=== PATIENT | female | born 1960 | race Caucasian/White ===

== ENCOUNTER 2018-02-25 16:26 | Inpatient (IN) | payer MEDICARE ==
[~2018-02-25] VITALS: Ht 170.2 cm; Wt 74.5 kg
--- NOTE | ~2018-02-25 | OP ---
PATIENT NAME: GUNJAN BROWN MEDICAL RECORD: [id number] :58 LOCATION:D.[id number] ADMISSION DATE:02/25/18 SURGEON: OTILIA OSEGUERA MD DATE OF OPERATION: 02/26/2018 SURGEON: Otilia Oseguera MD ORNAMENTAL METAL WORKER: Yoly Ortiz APRN PREOPERATIVE DIAGNOSIS: Perirectal abscess. POSTOPERATIVE DIAGNOSIS: Horseshoe perirectal abscess. PROCEDURE PERFORMED: Incision and drainage of complex multiloculated perirectal abscess, 8 x 8 x 6 cm. ANESTHESIA: General. COMPLICATIONS: None. SPECIMENS: Anaerobic and aerobic wound cultures. Case was grossly contaminated. ESTIMATED BLOOD LOSS: 30 cc. OPERATIVE COURSE: After consent was obtained, the patient was taken to the operating room and placed in the supine position on the operating table. Next, general anesthesia was given via endotracheal intubation and after a timeout was performed to confirm the correct patient and procedure, the patient was then placed into the lithotomy position. The perineum was prepped and draped in typical sterile fashion. There was a significant amount of fluctuance along the left perirectal area and buttocks. There was an area of skin breakdown with spontaneous drainage. An elliptical incision was made approximately 6 cm x 1 cm. There was an immediate return of 50-60 cc of purulent fluid. Anaerobic and aerobic cultures were obtained. Blunt finger dissection was performed until all loculations were opened. The abscess cavity measured 8 x 8 x 6 cm. It extended posteriorly across the midline. The abscess cavity was then copiously irrigated with saline. It was then packed with Kerlix gauze soaked in iodine and peroxide. Sterile gauze dressings were placed. At the end of the case, all needle and instrument counts were correct. No complications occurred. The patient was extubated and transferred to the PACU in stable condition. TRANSINT:[id number] Voice Confirmation ID: [id number] DOCUMENT ID: [id number] OTILIA OSEGUERA MD at 1323 CC: [id number] DICTATION DATE: 02/26/18 1143 DELI ASSOCIATE: 02/26/18 1321 ADM IN [facility] [address] [place] [address]
[~2018-02-25 16:26] MED LIST: ATIVAN2 MG PO; DILAUDID4 MG PO; HCTZ25 MG PO; HYDROCODONE-APA1 TAB PO; METOPROLOL TART50 MG PO; OXY IR30 MG PO; POTASSIUM99 M1; REQUIP1 MG PO; SEROQUEL100 MG PO; SOMA350 MG PO; TRAZODONE HCL50 MG PO; VITAMIN B-1000 MCG/M SQ
[2018-02-25 20:00] VITALS: BP 89/47
[2018-02-25 22:01] VITALS: BP 89/47; BMI 25.7
[2018-02-26] VITALS (7 sets, daily range): BP systolic 82–113; BP diastolic 46–77; Ht 170.2 cm; Wt 74.5 kg
[2018-02-26 09:34] LABS: BASOPHILS 0.2 % (0-2); EOSINOPHILS 1.9 % (0-7); HEMATOCRIT 35.3 % (36.0-48.0); HEMOGLOBIN 11.3 g/dL (12-16); IMMATURE GRANULOCYTES 0.4 % (0-5); MCH 33.1 pg (26.0-34.0); MCV 103.5 fL (80.0-100.0); NEUTROPHILS 80.5 % (40-80); RBC 3.41 10x6/uL (4.00-5.40); WBC 16.4 10x3/uL (4.8-10.8)
[2018-02-26 09:35] LABS: PLATELET COUNT 299 10x3/uL (130-400)
[2018-02-26 09:49] LABS: ANION GAP 16.5 mmol/L (8-16); CALCIUM 9.6 mg/dL (8.5-10.1); CARBON DIOXIDE 24.8 mmol/L (21.0-32.0); POTASSIUM - SERUM 3.3 mmol/L (3.5-5.1)
[2018-02-26 14:18] LABS: % SATURATION 5 % (15-55); IRON 18 ug/dl (35-150); TOTAL IRON BIND CAPACITY 310 ug/dl (260-445); UNSAT IRON BIND CAPACITY 292 ug/dl (150-375)
[2018-02-26 14:20] LABS: FERRITIN 256 ng/mL (3-244); LDH 186 U/L (81-234)
[2018-02-27 03:58] VITALS: BP 112/69
[2018-02-27 05:43] LABS: BASOPHILS 0.2 % (0-2); EOSINOPHILS 0.4 % (0-7); HEMATOCRIT 32.3 % (36.0-48.0); HEMOGLOBIN 10.7 g/dL (12-16); IMMATURE GRANULOCYTES 0.4 % (0-5); LYMPHOCYTES 9.3 % (15-50); MCHC 33.1 g/dL (31.0-37.0); MEAN PLATELET VOLUME 9.2 fL (7.4-10.4); MONOCYTES 14.9 % (2-11); NEUTROPHILS 74.8 % (40-80); RBC 3.24 10x6/uL (4.00-5.40); RDW 14.1 % (11.5-14.5); WBC 17.1 10x3/uL (4.8-10.8)
[2018-02-27 05:44] LABS: MCV 99.7 fL (80.0-100.0); PLATELET COUNT 359 10x3/uL (130-400)
[2018-02-27 06:02] LABS: ANION GAP 12.7 mmol/L (8-16); CARBON DIOXIDE 26.7 mmol/L (21.0-32.0); CREATININE - SERUM 0.9 mg/dL (0.6-1.3); POTASSIUM - SERUM 3.4 mmol/L (3.5-5.1)
[2018-02-27 08:20] VITALS: BP 93/51
[2018-02-27 10:21] LABS: FOLATE (FOLIC ACID) - SERUM >20.0 ng/mL (>3.0)
[2018-02-27 11:40] VITALS: BP 74/46
[2018-02-27 15:52] VITALS: BP 93/57
[2018-02-27 19:58] VITALS: BP 101/65
[2018-02-28] VITALS (7 sets, daily range): BP systolic 89–131; BP diastolic 53–64
[2018-02-28 05:10] LABS: BASOPHILS 0.2 % (0-2); EOSINOPHILS 2.9 % (0-7); HEMATOCRIT 31.2 % (36.0-48.0); HEMOGLOBIN 10.2 g/dL (12-16); IMMATURE GRANULOCYTES 0.6 % (0-5); LYMPHOCYTES 13.8 % (15-50); MCH 32.7 pg (26.0-34.0); MCHC 32.7 g/dL (31.0-37.0); MEAN PLATELET VOLUME 9.3 fL (7.4-10.4); MONOCYTES 13.4 % (2-11); NEUTROPHILS 69.1 % (40-80); PLATELET COUNT 386 10x3/uL (130-400); RBC 3.12 10x6/uL (4.00-5.40); RDW 14.1 % (11.5-14.5)
[2018-02-28 05:19] LABS: WBC 11.6 10x3/uL (4.8-10.8)
[2018-02-28 05:32] LABS: ANION GAP 14.4 mmol/L (8-16); CALCIUM 9.3 mg/dL (8.5-10.1); CARBON DIOXIDE 25.8 mmol/L (21.0-32.0); POTASSIUM - SERUM 3.2 mmol/L (3.5-5.1)
[2018-02-28 05:33] LABS: CREATININE - SERUM 1.3 mg/dL (0.6-1.3)
[2018-03-01 04:20] VITALS: BP 147/72
[2018-03-01 05:13] LABS: BASOPHILS 0.3 % (0-2); EOSINOPHILS 4.5 % (0-7); HEMATOCRIT 33.6 % (36.0-48.0); IMMATURE GRANULOCYTES 0.6 % (0-5); LYMPHOCYTES 24.2 % (15-50); MCH 33.1 pg (26.0-34.0); MCHC 32.7 g/dL (31.0-37.0); MCV 101.2 fL (80.0-100.0); MEAN PLATELET VOLUME 9.5 fL (7.4-10.4); MONOCYTES 13.7 % (2-11); NEUTROPHILS 56.7 % (40-80); PLATELET COUNT 369 10x3/uL (130-400); RBC 3.32 10x6/uL (4.00-5.40); RDW 14.4 % (11.5-14.5); WBC 10.9 10x3/uL (4.8-10.8)
[2018-03-01 05:31] LABS: CALC OSMOLALITY 284 mosm/kg (275-300); CALCIUM 9.3 mg/dL (8.5-10.1); CARBON DIOXIDE 26.2 mmol/L (21.0-32.0); CHLORIDE - SERUM 105 mmol/L (98-107); CREATININE - SERUM 0.7 mg/dL (0.6-1.3); GLUCOSE 88 mg/dL (74-106); SODIUM 143 mmol/L (136-145); UREA NITROGEN 15 mg/dL (7-18); eGFR NON AFRICAN AMERICAN > 90 mL/min (90-120)
[2018-03-01 08:16] VITALS: BP 155/77
[2018-03-01 12:09] VITALS: BP 130/71
[2018-03-01 16:55] VITALS: BP 100/70
[2018-03-01 20:49] VITALS: BP 116/74
[2018-03-02 04:17] VITALS: BP 93/48
[2018-03-02 06:59] LABS: BASOPHILS 0.4 % (0-2); EOSINOPHILS 4.2 % (0-7); HEMATOCRIT 31.4 % (36.0-48.0); HEMOGLOBIN 10.2 g/dL (12-16); IMMATURE GRANULOCYTES 0.6 % (0-5); LYMPHOCYTES 20.8 % (15-50); MCH 32.4 pg (26.0-34.0); MCHC 32.5 g/dL (31.0-37.0); MCV 99.7 fL (80.0-100.0); MEAN PLATELET VOLUME 9.2 fL (7.4-10.4); MONOCYTES 13.4 % (2-11); NEUTROPHILS 60.6 % (40-80); PLATELET COUNT 391 10x3/uL (130-400); RBC 3.15 10x6/uL (4.00-5.40); RDW 14.1 % (11.5-14.5); WBC 9.6 10x3/uL (4.8-10.8)
[2018-03-02 07:26] LABS: CALC OSMOLALITY 285 mosm/kg (275-300); CALCIUM 9.5 mg/dL (8.5-10.1); CARBON DIOXIDE 27.2 mmol/L (21.0-32.0); CHLORIDE - SERUM 105 mmol/L (98-107); CREATININE - SERUM 0.7 mg/dL (0.6-1.3); GLUCOSE 93 mg/dL (74-106); POTASSIUM - SERUM 3.7 mmol/L (3.5-5.1); SODIUM 143 mmol/L (136-145); UREA NITROGEN 15 mg/dL (7-18); eGFR NON AFRICAN AMERICAN > 90 mL/min (90-120)
[2018-03-02 09:09] VITALS: BP 136/86
[2018-03-02 12:31] VITALS: BP 107/69
[2018-03-02] MEDS ORDERED: PROZAC20 MG PO (13:36)
[2018-03-02] MEDS ORDERED: VIBRAMYCIN 100100 MG PO (13:36)
[2018-03-02] MEDS ORDERED: PROTONIX40 MG PO (13:37)
[2018-03-02] MEDS ORDERED: HCTZ25 MG PO (13:37)
[2018-03-02] MEDS ORDERED: HYDROCODONE-APA1 TAB PO (16:42)
== END 2018-03-02 18:24 | disposition home health service (06) | DRG 854 ==
LOC: D.MS 16:26 → OBSVTIME 16:27 → D.MS 16:45
PROVIDERS: Anesthesiology; Internal Medicine Nephrology; Surgery
PROC: 0D9P0ZZ Drainage of Rectum, Open Approach (ICD-10-PCS; principal; 2018-02-26 11:00)
DX: A41.9 Sepsis, unspecified organism (principal); K61.1 Rectal abscess; R65.20 Severe sepsis without septic shock; D53.9 Nutritional anemia, unspecified; J43.9 Emphysema, unspecified; B96.20 Unspecified Escherichia coli [E. coli] as the cause of diseases classified elsewhere; B95.62 Methicillin resistant Staphylococcus aureus infection as the cause of diseases classified elsewhere; G25.81 Restless legs syndrome; F41.8 Other specified anxiety disorders; Z87.891 Personal history of nicotine dependence; E87.6 Hypokalemia

== ENCOUNTER 2018-08-11 21:38 | Inpatient (IN) | payer MEDICARE ==
[~2018-08-11] VITALS: Ht 170.2 cm; Wt 77.4 kg
--- NOTE | ~2018-08-11 | MORECARE ---
CASE MANAGEMENT DISCHARGE SUMMARY PATIENT: GUNJAN BROWN UNIT: [id number] ADM DATE: 08/12/18 AGE: 57 : 58 SEX: F ROOM/BED: D.2137 AUTHOR: JOAN LOCKWOOD PHYSICIAN: REFERRING PHYSICIAN: KARAN DOAN MD DATE OF SERVICE: 08/15/18 Discharge Plan Patient Name: GUNJAN BROWN [facility] : 1960 Planned Disposition: Home Anticipated Discharge Date: 08/15/18 Discharge Date: 08/15/2018 Expected LOS: 3 Initial Reviewer: [email or web address] Initial Review Date: 08/15/2018 Generated: 08/15/18 1:11 pm Patient Name: GUNJAN BROWN Page [id number] at 1211 All edits/amendments must be made on the electronic document DICTATION DATE: 08/15/18 1211 SPINNER CAP FRAME: JORDAN 08/15/18 1211 RPT#: [id number] DC DATE:08/15/18 STATUS: DIS IN [facility] [address] [place] [address] END OF REPORT
--- NOTE | ~2018-08-11 | MORECARE ---
CASE MANAGEMENT DISCHARGE SUMMARY PATIENT: GUNJAN BROWN UNIT: [id number] ADM DATE: 08/12/18 AGE: 57 : 58 SEX: F ROOM/BED: D.7215 AUTHOR: JOAN LOCKWOOD PHYSICIAN: REFERRING PHYSICIAN: KARAN DOAN MD DATE OF SERVICE: 08/15/18 Discharge Plan Patient Name: GUNJAN BROWN Facility: [facility]:[place] : 1960 Planned Disposition: Home Anticipated Discharge Date: 08/15/18 Discharge Date: 08/15/2018 Expected LOS: 3 Initial Reviewer: [email or web address] Initial Review Date: 08/15/2018 Generated: 08/15/18 1:20 pm Comments DCP- Discharge Planning Updated by [email or web address]: Arnaud Ramos on 08/15/18 11:[address] Patient Name: GUNJAN BROWN Admission Status: ER Accout number: [id number] Admission Date: 08-12-2018 : 1960 Admission Diagnosis:SHORTNESS OF BREATH Attending: KARAN DOAN Current LOS: 3 Anticipated DC Date: 08-15-2018 Planned Disposition: Home Primary Insurance: HUMANA CHOICE PPO MCR [facility] Discharge Planning Comments: CM ATTEMPTED TO MEET WITH PT FOR INITIAL ASSESSMENT OF DISCHARGE NEEDS. PT WAS NOT IN ROOM AT APPROXIMATELY 1135 HOURS AND HAD ALREADY DISCHARGED HOME. Tobacco Drummer: Arnaud Ramos Last DP export: 08/15/18 11:11 Patient Name: GUNJAN BROWN Page [phone] at 1220 All edits/amendments must be made on the electronic document DICTATION DATE: 08/15/18 1219 EVALUATOR: JORDAN 08/15/18 1219 RPT#: [id number] DC DATE:08/15/18 STATUS: DIS IN [facility] [address] [facility] [place] [address] END OF REPORT
[~2018-08-11 21:38] MED LIST changes: +PROTONIX40 MG PO; +PROZAC20 MG PO; +VIBRAMYCIN 100100 MG PO
[2018-08-11] MEDS ORDERED: AMBIEN5 MG PO (21:48)
[2018-08-11] MEDS ORDERED: PHENERGAN25 M1 PO (21:49)
[2018-08-11 22:03] LABS: BASOPHILS 0.4 % (0-2); EOSINOPHILS 2.6 % (0-7); HEMATOCRIT 39.7 % (36.0-48.0); HEMOGLOBIN 13.3 g/dL (12-16); IMMATURE GRANULOCYTES 0.2 % (0-5); LYMPHOCYTES 40.6 % (15-50); MCH 34.3 pg (26.0-34.0); MCHC 33.5 g/dL (31.0-37.0); MCV 102.3 fL (80.0-100.0); MEAN PLATELET VOLUME 10.1 fL (7.4-10.4); MONOCYTES 5.9 % (2-11); NEUTROPHILS 50.3 % (40-80); RBC 3.88 10x6/uL (4.00-5.40); RDW 13.3 % (11.5-14.5)
[2018-08-11 22:09] LABS: PLATELET COUNT 236 10x3/uL (130-400)
[2018-08-11 22:26] LABS: ALBUMIN 3.6 g/dL (3.4-5.0); ALKALINE PHOSPHATASE 109 U/L (46-116); ALT (SGPT) 21 U/L (10-68); CALC OSMOLALITY 279 mosm/kg (275-300); CARBON DIOXIDE 22.8 mmol/L (21.0-32.0); CHLORIDE - SERUM 101 mmol/L (98-107); CREATININE - SERUM 1.1 mg/dL (0.6-1.3); GLUCOSE 90 mg/dL (74-106); PROTEIN - SERUM 7.6 g/dL (6.4-8.2); SODIUM 140 mmol/L (136-145); UREA NITROGEN 16 mg/dL (7-18); eGFR NON AFRICAN AMERICAN 54 mL/min (90-120)
[2018-08-11 22:36] LABS: CKMB 1.5 U/L (0.0-3.6); CREATINE KINASE 57 UL (21-215); MAGNESIUM - SERUM 1.7 mg/dL (1.8-2.4); TROPONIN-I < 0.017 ng/mL (0.000-0.060)
[2018-08-11 23:22] VITALS: BP 159/75
[2018-08-12] VITALS (10 sets, daily range): BP systolic 112–158; BP diastolic 62–92; Ht 170.2 cm; Wt 77.4 kg
[2018-08-12 00:14] LABS: APPEARANCE CLEAR (CLEAR); BILIRUBIN NEGATIVE (NEGATIVE); COLOR YELLOW (YELLOW); GLUCOSE NEGATIVE (NEGATIVE); KETONE NEGATIVE (NEGATIVE); NITRITE NEGATIVE (NEGATIVE); PROTEIN NEGATIVE (NEGATIVE); UROBILINOGEN NORMAL (NORMAL)
[2018-08-12 00:16] LABS: BACTERIA FEW /hpf (NONE SEEN); EPITHELIAL CELLS 0-5 /hpf (0-5); RED CELLS - URINE 0-5 /hpf (0-5); WHITE CELLS - URINE 0-5 /hpf (0-5)
[2018-08-12] MEDS ORDERED: ALBUTEROL SULF8.5 GM IH (01:28)
[2018-08-12 06:03] LABS: BASOPHILS 0.3 % (0-2); EOSINOPHILS 0 % (0-7); HEMOGLOBIN 13.5 g/dL (12-16); IMMATURE GRANULOCYTES 0.3 % (0-5); LYMPHOCYTES 9.8 % (15-50); MCH 34.2 pg (26.0-34.0); MCHC 32.9 g/dL (31.0-37.0); MCV 103.8 fL (80.0-100.0); MEAN PLATELET VOLUME 10.9 fL (7.4-10.4); MONOCYTES 0 % (2-11); NEUTROPHILS 89.6 % (40-80); PLATELET COUNT 242 10x3/uL (130-400); RBC 3.95 10x6/uL (4.00-5.40); RDW 13.7 % (11.5-14.5); WBC 6.9 10x3/uL (4.8-10.8)
[2018-08-12 06:31] LABS: ALBUMIN 3.6 g/dL (3.4-5.0); ANION GAP 23.1 mmol/L (8-16); BILIRUBIN - TOTAL 0.21 mg/dL (0.2-1.3); CALCIUM 8.9 mg/dL (8.5-10.1); CARBON DIOXIDE 17.6 mmol/L (21.0-32.0); CREATININE - SERUM 1.2 mg/dL (0.6-1.3); PROTEIN - SERUM 7.5 g/dL (6.4-8.2)
[2018-08-12 06:32] LABS: POTASSIUM - SERUM 4.7 mmol/L (3.5-5.1)
[2018-08-13 01:16] VITALS: BP 138/86
[2018-08-13 05:50] VITALS: BP 92/50
[2018-08-13 06:20] LABS: ANION GAP 18.5 mmol/L (8-16); CALCIUM 9.7 mg/dL (8.5-10.1); CREATININE - SERUM 1.2 mg/dL (0.6-1.3); PHOSPHOROUS 2.5 mg/dL (2.5-4.9)
[2018-08-13 06:24] LABS: POTASSIUM - SERUM 3.5 mmol/L (3.5-5.1)
[2018-08-13 06:51] LABS: BASOPHILS 0 % (0-2); EOSINOPHILS 0 % (0-7); HEMATOCRIT 37.3 % (36.0-48.0); HEMOGLOBIN 12.3 g/dL (12-16); IMMATURE GRANULOCYTES 0.3 % (0-5); LYMPHOCYTES 3.8 % (15-50); MCH 34.3 pg (26.0-34.0); MCV 103.9 fL (80.0-100.0); MEAN PLATELET VOLUME 10.6 fL (7.4-10.4); MONOCYTES 1.7 % (2-11); NEUTROPHILS 94.2 % (40-80); PLATELET COUNT 228 10x3/uL (130-400); RBC 3.59 10x6/uL (4.00-5.40); RDW 13.9 % (11.5-14.5)
[2018-08-13 06:57] LABS: WBC 11.6 10x3/uL (4.8-10.8)
[2018-08-13 09:17] VITALS: BP 118/76
[2018-08-13 11:12] VITALS: BP 123/82
[2018-08-13 15:13] VITALS: BP 129/73
[2018-08-13 21:07] VITALS: BP 128/60
[2018-08-14] VITALS (7 sets, daily range): BP systolic 90–128; BP diastolic 47–79
[2018-08-14 06:09] LABS: BASOPHILS 0 % (0-2); EOSINOPHILS 0 % (0-7); HEMATOCRIT 40.2 % (36.0-48.0); HEMOGLOBIN 13.4 g/dL (12-16); IMMATURE GRANULOCYTES 0.3 % (0-5); LYMPHOCYTES 8.2 % (15-50); MCH 34.4 pg (26.0-34.0); MCHC 33.3 g/dL (31.0-37.0); MCV 103.1 fL (80.0-100.0); MEAN PLATELET VOLUME 10.4 fL (7.4-10.4); MONOCYTES 6.1 % (2-11); NEUTROPHILS 85.4 % (40-80); PLATELET COUNT 250 10x3/uL (130-400); RDW 13.7 % (11.5-14.5)
[2018-08-14 06:18] LABS: ANION GAP 12.9 mmol/L (8-16); CALCIUM 9.5 mg/dL (8.5-10.1); CREATININE - SERUM 1.1 mg/dL (0.6-1.3); POTASSIUM - SERUM 3.2 mmol/L (3.5-5.1)
[2018-08-14 06:20] LABS: CARBON DIOXIDE 29.3 mmol/L (21.0-32.0)
[2018-08-14 06:22] LABS: WBC 15.3 10x3/uL (4.8-10.8)
[2018-08-15 01:12] VITALS: BP 91/52
[2018-08-15 04:38] VITALS: BP 91/59
[2018-08-15 06:41] LABS: BASOPHILS 0 % (0-2); EOSINOPHILS 0.3 % (0-7); HEMATOCRIT 38.9 % (36.0-48.0); HEMOGLOBIN 13.1 g/dL (12-16); IMMATURE GRANULOCYTES 0.2 % (0-5); LYMPHOCYTES 33.9 % (15-50); MCH 34.5 pg (26.0-34.0); MCHC 33.7 g/dL (31.0-37.0); MCV 102.4 fL (80.0-100.0); MEAN PLATELET VOLUME 10.3 fL (7.4-10.4); MONOCYTES 8.5 % (2-11); NEUTROPHILS 57.1 % (40-80); PLATELET COUNT 222 10x3/uL (130-400)
[2018-08-15 07:05] LABS: ANION GAP 14.4 mmol/L (8-16); CALCIUM 9.3 mg/dL (8.5-10.1); CARBON DIOXIDE 26.5 mmol/L (21.0-32.0); CREATININE - SERUM 1.4 mg/dL (0.6-1.3)
[2018-08-15 07:07] LABS: POTASSIUM - SERUM 2.9 mmol/L (3.5-5.1)
[2018-08-15 08:21] VITALS: BP 94/57
[2018-08-15] MEDS ORDERED: LEVAQUIN750 MG PO (09:15)
[2018-08-15] MEDS ORDERED: MUCINEX DM ER1 EAC1 PO (09:16)
[2018-08-15] MEDS ORDERED: SINGULAIR10 MG PO (09:16)
[2018-08-15] MEDS ORDERED: FLUTICASONE PRO16 GM NASAL (09:17)
[2018-08-15] MEDS ORDERED: PROTONIX40 MG PO (09:17)
[2018-08-15] MEDS ORDERED: SYMBICORT 16010.2 GM INH (09:18)
[2018-08-15] MEDS ORDERED: PREDNISONE20 MG PO (09:18)
[2018-08-15] MEDS ORDERED: IPRAT-ALBUT 0.5-3 ML UPD (09:19)
[2018-08-15 14:13] LABS: ANA REFLEX - DIRECT Negative (Negative)
[2018-08-16 03:08] LABS: MYCOPLASMA PNEUMO IGG 177 U/mL (0-99)
[2018-08-16 05:09] LABS: IMMUNOGLOBULIN A 216 mg/dL (87-352)
[2018-08-18 10:09] LABS: IMMUNOGLOBULIN E 333 IU/mL (0-100)
[2018-08-18 13:11] LABS: IGG SUBCLASS 1 430 mg/dL (248-810); IGG SUBCLASS 2 262 mg/dL (130-555); IGG SUBCLASS 3 37 mg/dL (15-102); IGG SUBCLASS 4 24 mg/dL (2-96)
[2018-08-19 13:14] LABS: ANCA - ANTIMYELOPEROXIDASE <9.0 U/mL (0.0-9.0); ANCA - ANTIPROTEINASE 3 <3.5 U/mL (0.0-3.5); ANCA - ATYPICAL <1:20 titer (Neg:<1:20); ANCA - CYTOPLASMIC <1:20 titer (Neg:<1:20); ANCA - PERINUCLEAR <1:20 titer (Neg:<1:20)
== END 2018-08-15 11:15 | disposition home or self-care (01) | DRG 193 ==
LOC: D.ER 21:38 → D.M2 08-12 00:08
PROVIDERS: Family Medicine; Internal Medicine Nephrology; Internal Medicine Pulmonary Disease
DX: J18.9 Pneumonia, unspecified organism (principal); J96.01 Acute respiratory failure with hypoxia; J44.0 Chronic obstructive pulmonary disease with (acute) lower respiratory infection; J44.1 Chronic obstructive pulmonary disease with (acute) exacerbation; J20.9 Acute bronchitis, unspecified; F41.8 Other specified anxiety disorders; D75.89 Other specified diseases of blood and blood-forming organs; L40.9 Psoriasis, unspecified; R19.7 Diarrhea, unspecified; J30.9 Allergic rhinitis, unspecified; G89.29 Other chronic pain; M54.9 Dorsalgia, unspecified; I10 Essential (primary) hypertension; E87.6 Hypokalemia

== ENCOUNTER → 2018-11-07 | Emergency (ER) | payer MEDICARE ==
[~2018-11-07] VITALS: Ht 170.2 cm; Wt 85.0 kg
[~2018-11-07] MED LIST changes: +ALBUTEROL SULF8.5 GM IH; +AMBIEN5 MG PO; +FLUTICASONE PRO16 GM NASAL; +IPRAT-ALBUT 0.5-3 ML UPD; +LEVAQUIN750 MG PO; +MUCINEX DM ER1 EAC1 PO; +PHENERGAN25 M1 PO; +PREDNISONE20 MG PO; +SINGULAIR10 MG PO; +SYMBICORT 16010.2 GM INH
[2018-11-07 19:33] VITALS: Ht 170.2 cm; Wt 85.0 kg
[2018-11-07 20:12] LABS: BASOPHILS 0.2 % (0-2); EOSINOPHILS 1.7 % (0-7); HEMATOCRIT 35.3 % (36.0-48.0); HEMOGLOBIN 11.4 g/dL (12-16); IMMATURE GRANULOCYTES 0.2 % (0-5); MCH 32.2 pg (26.0-34.0); MCHC 32.3 g/dL (31.0-37.0); MCV 99.7 fL (80.0-100.0); MEAN PLATELET VOLUME 9.8 fL (7.4-10.4); MONOCYTES 12.2 % (2-11); NEUTROPHILS 58.7 % (40-80); PLATELET COUNT 295 10x3/uL (130-400); RBC 3.54 10x6/uL (4.00-5.40); RDW 14.5 % (11.5-14.5); WBC 10.6 10x3/uL (4.8-10.8)
[2018-11-07 20:21] LABS: INR 0.95 (0.85-1.17); PROTIME 12.2 SECONDS (11.6-15.0)
[2018-11-07 20:31] LABS: ALKALINE PHOSPHATASE 139 U/L (46-116); ALT (SGPT) 29 U/L (10-68); BILIRUBIN - TOTAL 0.45 mg/dL (0.2-1.3); CALC OSMOLALITY 292 mosm/kg (275-300); CALCIUM 9.3 mg/dL (8.5-10.1); CARBON DIOXIDE 24.7 mmol/L (21.0-32.0); CHLORIDE - SERUM 102 mmol/L (98-107); CREATININE - SERUM 1.5 mg/dL (0.6-1.3); GLUCOSE 73 mg/dL (74-106); POTASSIUM - SERUM 3.6 mmol/L (3.5-5.1); PROTEIN - SERUM 7.5 g/dL (6.4-8.2); SODIUM 143 mmol/L (136-145); UREA NITROGEN 38 mg/dL (7-18); eGFR NON AFRICAN AMERICAN 38 mL/min (90-120)
[2018-11-07 20:43] VITALS: BP 137/85
[2018-11-07 20:45] LABS: CREATINE KINASE 371 UL (21-215); PRO BNP 280 pg/mL (0-125); TROPONIN-I < 0.017 ng/mL (0.000-0.060)
== END | disposition home or self-care (01) ==
LOC: D.ER 19:30
PROVIDERS: Emergency Medicine
DX: R06.02 Shortness of breath (principal); I10 Essential (primary) hypertension

== ENCOUNTER → 2019-01-13 14:16 | Outpatient (CLI) | payer MEDICARE ==
[2018-11-07 19:33] VITALS: BMI 29.3
== END | disposition home or self-care (01) ==
LOC: D.RT 14:16
PROVIDERS: ATTEND Internal Medicine Pulmonary Disease
DX: J44.1 Chronic obstructive pulmonary disease with (acute) exacerbation (principal)

== ENCOUNTER 2019-04-13 22:11 | Inpatient (IN) | payer MEDICARE ==
[~2019-04-13] VITALS: Ht 170.2 cm; Wt 88.5 kg
[2019-04-13 23:25] LABS: BASOPHILS 0.3 % (0-2); EOSINOPHILS 14.2 % (0-7); HEMATOCRIT 23.9 % (36.0-48.0); IMMATURE GRANULOCYTES 0.1 % (0-5); LYMPHOCYTES 23.6 % (15-50); MCH 23.8 pg (26.0-34.0); MCHC 29.7 g/dL (31.0-37.0); MCV 80.2 fL (80.0-100.0); MEAN PLATELET VOLUME 9.6 fL (7.4-10.4); MONOCYTES 9.5 % (2-11); NEUTROPHILS 52.3 % (40-80); PLATELET COUNT 304 10x3/uL (130-400); RBC 2.98 10x6/uL (4.00-5.40); RDW 17.6 % (11.5-14.5); WBC 7.2 10x3/uL (4.8-10.8)
[2019-04-13 23:33] LABS: HEMOGLOBIN 7.1 g/dL (12-16)
--- NOTE | 2019-04-13 23:35 | NUR ---
PT CLOSING EYES WHILE THIS NURSE EXPLAINED PROCEDURE OF IN AND OUT CATHETERIZATION, NOTED TO BE LETHARGIC AT THIS TIME. PT REPEATED PROCEDURE AND CONSENTED AT THIS TIME. STATED "I'M SORRY I COULDN'T GO ON THE TOILET."
[2019-04-13 23:37] LABS: APTT 29.3 SECONDS (22.8-39.4); PROTIME 12.7 SECONDS (11.6-15.0)
--- NOTE | 2019-04-13 23:45 | NUR ---
STOOL GUIAC NEGATIVE. EDP NOTIFIED.
[2019-04-13 23:47] VITALS: BP 110/56
[2019-04-13 23:50] LABS: ALBUMIN 3.3 g/dL (3.4-5.0); ALKALINE PHOSPHATASE 147 U/L (46-116); ALT (SGPT) 15 U/L (10-68); BILIRUBIN - TOTAL 0.31 mg/dL (0.2-1.3); CALC OSMOLALITY 291 mosm/kg (275-300); CALCIUM 8.5 mg/dL (8.5-10.1); CARBON DIOXIDE 25.7 mmol/L (21.0-32.0); CHLORIDE - SERUM 105 mmol/L (98-107); CREATININE - SERUM 1.8 mg/dL (0.6-1.3); GLUCOSE 101 mg/dL (74-106); POTASSIUM - SERUM 3.5 mmol/L (3.5-5.1); PROTEIN - SERUM 6.9 g/dL (6.4-8.2); SODIUM 143 mmol/L (136-145); UREA NITROGEN 32 mg/dL (7-18); eGFR NON AFRICAN AMERICAN 30 mL/min (90-120)
[2019-04-13 23:51] LABS: CKMB 0.8 U/L (0.0-3.6); CREATINE KINASE 67 UL (21-215); MAGNESIUM - SERUM 1.7 mg/dL (1.8-2.4); THYROID STIMULATING HORMONE 1.07 uIU/mL (0.36-3.74); TROPONIN-I < 0.017 ng/mL (0.000-0.060)
[2019-04-14] VITALS (8 sets, daily range): BP systolic 97–130; BP diastolic 56–70; Ht 170.2 cm; Wt 88.5 kg
[2019-04-14] LABS: APPEARANCE HAZY (CLEAR); BILIRUBIN NEGATIVE (NEGATIVE); COLOR YELLOW (YELLOW); GLUCOSE NEGATIVE (NEGATIVE); KETONE NEGATIVE (NEGATIVE); NITRITE NEGATIVE (NEGATIVE); PROTEIN 1+ mg/dL (NEGATIVE); UROBILINOGEN NORMAL (NORMAL)
[2019-04-14 00:01] LABS: UDS - AMPHET NEGATIVE QUAL (NEGATIVE); UDS - BARB NEGATIVE QUAL (NEGATIVE); UDS - BENZO NEGATIVE QUAL (NEGATIVE); UDS - COCAINE NEGATIVE QUAL (NEGATIVE); UDS - OPIATE POSITIVE QUAL (NEGATIVE); UDS - PCP NEGATIVE QUAL (NEGATIVE); UDS - THC NEGATIVE QUAL (NEGATIVE)
[2019-04-14 00:03] LABS: BACTERIA FEW /hpf (NONE SEEN); CALCIUM OXALATE CRYSTALS 0-5 /hpf (NONE SEEN); EPITHELIAL CELLS 0-5 /hpf (0-5); HYALINE CAST 0-5 /lpf (NONE SEEN); RED CELLS - URINE 0-5 /hpf (0-5); WHITE CELLS - URINE 0-5 /hpf (0-5)
[2019-04-14 00:22] LABS: % SATURATION 2 % (15-55); IRON 13 ug/dl (35-150); TOTAL IRON BIND CAPACITY 524 ug/dl (260-445)
[2019-04-14 00:26] LABS: UNSAT IRON BIND CAPACITY 511 ug/dl (150-375)
--- NOTE | 2019-04-14 00:40 | NUR ---
ENTERED PATIENTS ROOM TO GET BLOOD CONSENT SIGNED. PT WAS NOTED TO BE RESPONSIVE SLIGHTLY TO PAINFUL STIMULATION. PT, WAS HAVING SNORING RESPIRATIONS AROUND 11 BREATHS PER MINUTE.
--- NOTE | 2019-04-14 00:43 | NUR ---
DR. STONE WAS NOTIFIED ON THE CHANGE IN PATIENTS COND. ORDERED NARCAN 1 MG IVP
--- NOTE | 2019-04-14 00:47 | NUR ---
PT MORE AWAKE AND YELLING OUT. PT UNABLE TO STAY STILL ON THE BED. PT BEGAN YELLING AND CUSSING OUT AT STAFF. PT WAS INFORMED THAT SHE WAS GIVEN NARCAN DUE TO HER DECREASED NEURO AND RESP STATUS. PT YELLING OUT AGAIN.
--- NOTE | 2019-04-14 01:33 | NUR ---
PT MOVING CONSTANTLY, THIS NURSE HAVING DIFFICULTY OBTAINING BP MEASUREMENT AT THIS TIME. PT ALSO SPEAKING NEGATIVELY TO HYDRO STATION OPERATOR AT BEDSIDE SAYING "I WISH YOU COULD FEEL THIS PAIN JUST ONE TIME" AND "SHUT UP." PT ALSO ASSISTED TO BEDSIDE COMMODE AT THIS TIME WITHOUT COMPLAINT OR S/S DISTRESS.
[2019-04-14] MEDS ORDERED: SEROQUEL200 MG PO (02:20)
[2019-04-14] MEDS ORDERED: GABAPENTIN100 MG PO (02:23)
--- NOTE | 2019-04-14 04:03 | NUR ---
RECIEVED REPORT FROM ROBY RAM IN ER. ARRIVED TO FLOOR ON A STRETCHER. TRANSFERED SELF TO BED. ALERT AND ORIENTED X4. UP AD JAYSON. STATES SHE HAS BROKEN LEFT ANKLE. LAVELLE WRAP TO ANKLE. ANKLE IS SWOLLEN. PSORISIS TO BOTH LEGS AND GROIN AREA. BECAME VERY IRRITATED WHEN ASKING ASSESSMENT QUESTIONS. EXPLAINED IT IS ALL PART OF THE ASSESSMENT AND EVERYONE IS ASKED THESE QUESTIONS. ANSWERS VERY SHORT AND ROLLING HER EYES. UPSET BECAUSE SHE HAS'NT HAD HER NIGHT TIME MEDICATIONS. ORDER FOR REQUIP AT 0151. CALLED ER AND THEY DID'NT GIVE IT. CALLED HOUSE SUPERVISER AND WAILTING FOR HER TOO GET MEDICATION. PT AWARE. PT ALSO HAD SANDWICH BOX 2 BAGS OF CHIPS AND COOKIES WITH CUP OF COFFEE. PRBC STARTED WHEN RECIEVED ON THE FLOOR. STILL INFUSING. NO ADVERSE SIDE EFFECTS OBSERVED. IV TO LEFT FA WITH DSG INTACT. NO REDNESS OR SWELLING OBSERVED.
--- NOTE | 2019-04-14 07:44 | NUR ---
ASSESSMENT DONE. PERNELL NEEDS
--- NOTE | 2019-04-14 10:50 | NUR ---
I have reviewed this patient and I concur with the Shift Assessment completed by the Licensed Practical Nurse today this shift.
[2019-04-14 13:01] LABS: HEMATOCRIT 31.7 % (36.0-48.0); HEMOGLOBIN 9.8 g/dL (12-16)
--- NOTE | 2019-04-14 14:18 | NUR ---
REFUSED SCD'S PER ROSALINDA/TAMIR
--- NOTE | 2019-04-14 17:10 | NUR ---
WITHOUT CHANGES OR DISTRESS NOTED AT THIS TIME. DENIES NEEDS.
--- NOTE | 2019-04-14 19:15 | NUR ---
EVENIND ROUNDS MADE. PATIENT A&OX4. PATIENT HAS BOOT TO LEFT LEG. IV TO RT FA SALINE LOCKED, DRSG C/D/I. WILL CPOC. FAMILY AT BEDSIDE. PATIENT DENIES NEEDS AT THIS TIME. CL IN REACH, BED LOCKED AND LOWERED. WILL CTM.
--- NOTE | 2019-04-14 20:20 | NUR ---
PATIENT IV INFILTRATED. IV RESITED TO LT HAND WITH 22G, X3 ATTEMPTS. PATIENT TOLERATED WELL. PATIENT REQUESTED PAIN MED, MED ADMINISTERED PER ORDER. PATIENT DENIES FURTHER NEEDS AT THIS TIME. CL IN REACH, BED LOCKED AND LOWERED. FALL PRECAUTIONS IN PLACE. WILL CTM.
[2019-04-15] VITALS: BP 127/76
[2019-04-15 04:00] VITALS: BP 109/60
[2019-04-15 06:38] LABS: BASOPHILS 0.5 % (0-2); EOSINOPHILS 6.6 % (0-7); HEMATOCRIT 28.5 % (36.0-48.0); HEMOGLOBIN 8.9 g/dL (12-16); IMMATURE GRANULOCYTES 0.2 % (0-5); LYMPHOCYTES 40.7 % (15-50); MCH 24.5 pg (26.0-34.0); MCHC 31.2 g/dL (31.0-37.0); MCV 78.5 fL (80.0-100.0); MEAN PLATELET VOLUME 9.4 fL (7.4-10.4); PLATELET COUNT 254 10x3/uL (130-400); RDW 17.2 % (11.5-14.5); WBC 6.1 10x3/uL (4.8-10.8)
[2019-04-15 07:27] LABS: CALC OSMOLALITY 286 mosm/kg (275-300); CALCIUM 8.6 mg/dL (8.5-10.1); CARBON DIOXIDE 28.1 mmol/L (21.0-32.0); CHLORIDE - SERUM 109 mmol/L (98-107); CREATININE - SERUM 0.7 mg/dL (0.6-1.3); FERRITIN 38 ng/mL (3-244); GLUCOSE 86 mg/dL (74-106); MAGNESIUM - SERUM 1.7 mg/dL (1.8-2.4); PHOSPHOROUS 3.2 mg/dL (2.5-4.9); POTASSIUM - SERUM 3.3 mmol/L (3.5-5.1); SODIUM 144 mmol/L (136-145); UREA NITROGEN 14 mg/dL (7-18); eGFR NON AFRICAN AMERICAN > 90 mL/min (90-120)
[2019-04-15 07:29] LABS: RBC 3.63 10x6/uL (4.00-5.40)
[2019-04-15 08:44] VITALS: BP 121/67
--- NOTE | 2019-04-15 09:35 | NUR ---
ASSESSMENT DONE. DENIES NEEDS
--- NOTE | 2019-04-15 10:29 | NUR ---
I have reviewed this patient and I concur with the Shift Assessment completed by the Licensed Practical Nurse today this shift.
[2019-04-15 12:27] VITALS: BP 110/60
[2019-04-15 17:09] LABS: HEMATOCRIT 30.6 % (36.0-48.0); HEMOGLOBIN 9.5 g/dL (12-16)
--- NOTE | 2019-04-15 18:26 | NUR ---
WITHOUT CHANGES OR DISTRESS NOTED AT THIS TIME.
--- NOTE | 2019-04-15 19:52 | NUR ---
EVENING ROUNDS COMPLETE. PT SITTING UP IN BED, ASSESSMENT COMPLETE, VSS, AAOX4. TEACHING ON I/S USE, PT DEMONSTRATED CORRECTLY. NO FURTHER NEEDS NOTED AT THIS TIME.
[2019-04-15 20:00] VITALS: BP 144/72
[2019-04-16] VITALS: BP 90/53
[2019-04-16 04:00] VITALS: BP 105/73
[2019-04-16 05:39] LABS: CALC OSMOLALITY 282 mosm/kg (275-300); CALCIUM 8.8 mg/dL (8.5-10.1); CHLORIDE - SERUM 108 mmol/L (98-107); CREATININE - SERUM 0.7 mg/dL (0.6-1.3); GLUCOSE 95 mg/dL (74-106); MAGNESIUM - SERUM 2.1 mg/dL (1.8-2.4); PHOSPHOROUS 3.5 mg/dL (2.5-4.9); SODIUM 142 mmol/L (136-145); UREA NITROGEN 12 mg/dL (7-18); eGFR NON AFRICAN AMERICAN > 90 mL/min (90-120)
[2019-04-16 05:44] LABS: BASOPHILS 0.3 % (0-2); EOSINOPHILS 5.8 % (0-7); HEMATOCRIT 32.5 % (36.0-48.0); HEMOGLOBIN 9.9 g/dL (12-16); IMMATURE GRANULOCYTES 0.6 % (0-5); LYMPHOCYTES 35.2 % (15-50); MCH 24.6 pg (26.0-34.0); MCHC 30.5 g/dL (31.0-37.0); MEAN PLATELET VOLUME 10.6 fL (7.4-10.4); MONOCYTES 10.7 % (2-11); NEUTROPHILS 47.4 % (40-80); PLATELET COUNT 249 10x3/uL (130-400); RBC 4.02 10x6/uL (4.00-5.40); RDW 17.7 % (11.5-14.5); WBC 6.8 10x3/uL (4.8-10.8)
[2019-04-16 05:46] LABS: MCV 80.8 fL (80.0-100.0)
[2019-04-16 05:52] LABS: CARBON DIOXIDE 19.1 mmol/L (21.0-32.0); POTASSIUM - SERUM 3.8 mmol/L (3.5-5.1)
--- NOTE | 2019-04-16 06:25 | NUR ---
PT SITTING ON SIDE OF BED. NO NEEDS VOICED AT THIS TIME.
--- NOTE | 2019-04-16 07:26 | NUR ---
ROUNDING DONE WITH PATIENT IN THE RESTROOM AT THIS TIME. DENIES NEEDS AT THIS TIME. WALKING BOOT SEEN TO LEFT LEG. ON ROOM AIR. RIGHT FA PIV SEEN WITH NS INFUSING AT 25 CC/HR. ON EP, K+ IS 3.8. WILL MONITOR AND ASSIST FOR NEEDS.
[2019-04-16 09:30] VITALS: BP 115/73
[2019-04-16 11:40] VITALS: BP 119/65
--- NOTE | 2019-04-16 12:15 | NUR ---
IV FLUIDS CONVERTED TO SALINE LOCK PATIENT IS BEING DISCHARGED HOME. PATIENT STATES THAT SHE HAS TO WAIT ON A RIDE AND THEY ARE AT WORK AT THIS TIME.
--- NOTE | 2019-04-16 15:19 | MORECARE ---
CASE MANAGEMENT DISCHARGE SUMMARY PATIENT: GUNJAN BROWN UNIT: [id number] ADM DATE: 04/14/19 AGE: 58 : 58 SEX: F ROOM/BED: D.7786 AUTHOR: FABIÁN,DOC PHYSICIAN: REFERRING PHYSICIAN: ROBY HAN MD DATE OF SERVICE: 04/16/19 Discharge Plan Patient Name: GUNJAN BROWN Facility: [facility]:[place] : 1960 Planned Disposition: Home Anticipated Discharge Date: 04/16/19 Discharge Date: Expected LOS: 2 Initial Reviewer: [email or web address] Initial Review Date: 04/16/2019 Generated: 04/16/19 4:19 pm Comments DCP- Discharge Planning Updated by [email or web address]: Arnaud Ramos on 04/16/19 2:[address] Patient Name: GUNJAN BROWN Admission Status: ER Accout number: [id number] Admission Date: 04-14-2019 : 1960 Admission Diagnosis:OTHER SPECIFIED SOFT TISSUE DISORDERS Attending: ALAINA HAN Current LOS: 2 Anticipated DC Date: 04-16-2019 Planned Disposition: Home Primary Insurance: HUMANA CHOICE PPO MCR [employer] Discharge Planning Comments: CM MET WITH PT IN ROOM TO DISCUSS DISCHARGE PLANNING AND NEEDS. PT REPORTS LIVING AT HOME INDEPENDENTLY WITH HER EX SPOUSE. PT HAS BEDSIDE COMMODE, NEBULIZER, TOP DYEING MACHINE LOADER CHAIR, WALKER, ROLLING WALKER AND WHEELCHAIR WITH NO MEDICAL EQUIPMENT PROVIDER PREFERENCE. PT HAS NO OUTSIDE SERVICES ASSISTING IN THE HOME. CM DISCUSSED AVAILABILITY OF HOME HEALTH, REHAB SERVICES AND MEDICAL EQUIPMENT. PT DENIES DISCHARGE NEEDS, REPORTS HER EX SPOUSE WILL PICK HER UP FOR DISCHARGE HOME. Maintenance Of Way Foreman: Arnaud Ramos DCPIA - Discharge Planning Initial Assessment Updated by [email or web address]: Arnaud Ramos on 04/16/19 3:15 pm * Is the patient Alert and Oriented? Yes * How many steps to enter\exit or inside your home? NONE * PCP DR. [facility] * Pharm[facility] * Preadmission Environment Home with Family * ADLs Independent * Equipment Bedside Commode Nebulizer Rolling Walker Shower Chair Walker Wheelchair * Other Equipment NO MEDICAL EQUIPMENT PROVIDER PREFERENCE * List name and contact numbers for known caregivers / representatives who currently or will assist patient after discharge: FERNANDO ALANIS, EX SPOUSE, * Verbal permission to speak to the caregivers and representatives has been obtained from the patient. N/A * Community resources currently utilized None * Please name any agencies selected above. NONE * Additional services required to return to the preadmission environment? No * Can the patient safely return to the preadmission environment? Yes * Has this patient been hospitalized within the prior 30 days at any hospital? Yes Patient Name: GUNJAN BROWN Page [id number] at 1519 All edits/amendments must be made on the electronic document DICTATION DATE: 04/16/191518 SLAG WORKER: JORDAN 04/16/191518 RPT#: [id number] DC DATE: STATUS: ADM IN [facility] [address] [place] [address] END OF REPORT
[2019-04-16 15:24] VITALS: BP 128/74
--- NOTE | 2019-04-16 19:28 | NUR ---
AWAKE AND ALERT PT STATES SHE IS READY TO GO HOME LCTA SKIN WARM AND DRY ASKED PT TO LEAVE IV IN PLACE TILL READY TO DC...INSTRUCTIONS DONE AND WAITING ON RIDE
--- NOTE | 2019-04-16 20:31 | NUR ---
REMOVED IV ACESS WITH CATH INTACT AND WENT OVER DC INSTRUCTIONS WITH PT VS PRIOR TO ESCORT OUT BY WC 97.9 109/68 64 18 100% RA
== END 2019-04-16 20:30 | disposition home or self-care (01) | DRG 812 ==
LOC: D.ER 22:11 → D.M2 04-14 00:10
PROVIDERS: Emergency Medicine; Family Medicine; ADMIT Emergency Medicine; ATTEND Emergency Medicine
DX: D64.9 Anemia, unspecified (principal); N17.9 Acute kidney failure, unspecified; E72.20 Disorder of urea cycle metabolism, unspecified; E83.42 Hypomagnesemia; L40.9 Psoriasis, unspecified; F41.8 Other specified anxiety disorders; S82.842A Displaced bimalleolar fracture of left lower leg, initial encounter for closed fracture; X58.XXXA Exposure to other specified factors, initial encounter; J44.9 Chronic obstructive pulmonary disease, unspecified; D50.9 Iron deficiency anemia, unspecified; R06.89 Other abnormalities of breathing; I95.9 Hypotension, unspecified

== ENCOUNTER 2019-06-27 13:08 | Inpatient (IN) | payer MEDICARE ==
[~2019-06-27] VITALS: Ht 170.2 cm; Wt 79.4 kg
[~2019-06-27 13:08] MED LIST changes: +GABAPENTIN100 MG PO; +SEROQUEL200 MG PO
[2019-06-27 13:25] LABS: BASOPHILS 0.3 % (0-2); EOSINOPHILS 3.5 % (0-7); HEMATOCRIT 39.9 % (36.0-48.0); HEMOGLOBIN 12.9 g/dL (12-16); IMMATURE GRANULOCYTES 0.2 % (0-5); LYMPHOCYTES 15.2 % (15-50); MCH 29.9 pg (26.0-34.0); MCHC 32.3 g/dL (31.0-37.0); MCV 92.4 fL (80.0-100.0); MEAN PLATELET VOLUME 9.4 fL (7.4-10.4); MONOCYTES 5.9 % (2-11); NEUTROPHILS 74.9 % (40-80); PLATELET COUNT 276 10x3/uL (130-400); RBC 4.32 10x6/uL (4.00-5.40); RDW 23.3 % (11.5-14.5); WBC 8.6 10x3/uL (4.8-10.8)
[2019-06-27 13:39] LABS: APTT 26.1 SECONDS (22.8-39.4); INR 0.99 (0.85-1.17); PROTIME 12.6 SECONDS (11.6-15.0)
[2019-06-27 13:46] LABS: ALBUMIN 3.2 g/dL (3.4-5.0); ANION GAP 11.9 mmol/L (8-16); BILIRUBIN - TOTAL 0.37 mg/dL (0.2-1.3); CALCIUM 8.7 mg/dL (8.5-10.1); CARBON DIOXIDE 28.1 mmol/L (21.0-32.0); CREATININE - SERUM 1.1 mg/dL (0.6-1.3); PROTEIN - SERUM 6.7 g/dL (6.4-8.2)
--- NOTE | 2019-06-27 15:14 | NUR ---
PEDIATRICS HOSPITALIST DOSE VERIFIED WITH SHAVONNE RAM USING THE PEDIATRICS HOSPITALIST PUMP, INSTRUCTED PT ON USE.
--- NOTE | 2019-06-27 16:24 | NUR ---
I have reviewed this patient and I concur with the Shift Assessment completed by the Licensed Practical Nurse today this shift.
--- NOTE | 2019-06-27 18:41 | NUR ---
PATIENT ALSO NOTED TO HAVE HAGER CATH. APPROX 600 CC OF CONCENTRATED YELLOW URINE CONTAINED IN HAGER BAG UPON ARRIVAL TO PACU.
[2019-06-27 19:29] VITALS: BP 142/56
--- NOTE | 2019-06-27 19:30 | NUR ---
RECEIVED FROM PACU VIA BED. DROWSY. CONFUSED AND FORGETFUL AT TIMES. INSTRUCTED ON USE OF MORPHINE HAND LEATHER TRIMMER. VERBALIZED UNDERSTANDING. DENIES PAIN AT THIS TIME. RESP SHALLOW. O2 @ 2L/NC. V/S STABLE. NS @ 125 MLHR INFUSING IN LT HAND. SCABS NOTED TO BUE. PSORIASIS NOTED TO BLE. DRSG WITH LAVELLE WRAP NOTED TO LLE. TOES COOL TO TOUCH. HAEGR CATH PATENT AND DRAINING YELLOW URINE. NO DISTRESS. SR ELEVATED X2. CL IN REACH.
[2019-06-27] MEDS ORDERED: K-TAB10 MEQ PO (19:40)
[2019-06-27] MEDS ORDERED: BUMEX2 MG PO (19:42)
[2019-06-27] MEDS ORDERED: PEPCID AC20 MG PO (19:44)
[2019-06-27] MEDS ORDERED: BACLOFEN10 MG PO (19:44)
[2019-06-27] MEDS ORDERED: ALBUTEROL SULF8.5 GM INH (19:46)
[2019-06-27] MEDS ORDERED: IPRAT-ALBUT 0.5-3 ML UPD (19:48)
[2019-06-27 20:16] VITALS: BP 142/56
--- NOTE | 2019-06-27 22:42 | NUR ---
CALLED STAFF INTO ROOM. PT VERY UPSET, CRYING AND YELLING AT STAFF ABOUT HURTING. EXPLAINED AGAIN TO PT THAT SHE HAS A PAPER HANGER PUMP. SHE STATES, "WHAT AM I SUPPOSED TO DO, STAY UP ALL NIGHT AND PUSH THE BUTTON EVERY 10 MINUTES?" PT WAS OVERHEARD YELLING BY OTHER STAFF MEMBERS NEARBY. PT ARGUMENTATIVE WITH STAFF AND TALKING IN CIRCLES, APPEARS TO BE AGITATED AND CONFUSED. MORPHINE BOLUS GIVEN AT THIS TIME AND EXPLAINED TO PT. EX AT BEDSIDE. JIMMY FRAUSTO LPN IN ROOM TO WITNESS CHANGING OF THE PAPER HANGER PUMP DUE TO PUMP ALARMING. PT STATES, "YOU ALL HAVE AN ATTITUDE AND YOUR HANDS ON YOUR HIPS" WHICH WAS NOT THE CASE. PT HAS HX OF BIPOLAR. EXPLAINED TO PT THAT SHE WAS THE ONLY PERSON UPSET AND YELLING. EXPLAINED USE OF PAPER HANGER AGAIN AND SHE VERBALIZED UNDERSTANDING.
[2019-06-27 23:44] VITALS: BP 142/56; BMI 27.4
[2019-06-28 00:23] VITALS: BP 116/71
--- NOTE | 2019-06-28 02:30 | NUR ---
CARCASS SPLITTER PUMP BEEPING. STAFF ARRIVED IN ROOM TO FIND THAT CARCASS SPLITTER HAS LOCKED PT OUT DUE TO REACHING MAX LIMIT. EXPLAINED TO PT AND SHE WAS ASKING HOW LONG IT WOULD BE LOCKED. INFORMED PT THAT SHE COULD USE IT AGAIN WHEN THE BUTTON TURNED GREEN AGAIN. SHE VERBALIZED UNDERSTANDING.
[2019-06-28 05:37] LABS: BASOPHILS 0.5 % (0-2); EOSINOPHILS 3.9 % (0-7); IMMATURE GRANULOCYTES 0.1 % (0-5); LYMPHOCYTES 21.3 % (15-50); MCH 29.3 pg (26.0-34.0); MCHC 30.8 g/dL (31.0-37.0); MEAN PLATELET VOLUME 9.7 fL (7.4-10.4); MONOCYTES 12.3 % (2-11); NEUTROPHILS 61.9 % (40-80); PLATELET COUNT 284 10x3/uL (130-400); RDW 23.2 % (11.5-14.5); WBC 7.8 10x3/uL (4.8-10.8)
[2019-06-28 05:46] LABS: MCV 95.1 fL (80.0-100.0)
[2019-06-28 06:02] LABS: ALBUMIN 3.3 g/dL (3.4-5.0); ALKALINE PHOSPHATASE 166 U/L (46-116); ALT (SGPT) 20 U/L (10-68); BILIRUBIN - TOTAL 0.37 mg/dL (0.2-1.3); CALC OSMOLALITY 273 mosm/kg (275-300); CALCIUM 8.9 mg/dL (8.5-10.1); CARBON DIOXIDE 27.8 mmol/L (21.0-32.0); CHLORIDE - SERUM 103 mmol/L (98-107); GLUCOSE 119 mg/dL (74-106); PROTEIN - SERUM 6.9 g/dL (6.4-8.2); SODIUM 137 mmol/L (136-145); UREA NITROGEN 10 mg/dL (7-18)
[2019-06-28 06:03] LABS: CREATININE - SERUM 0.8 mg/dL (0.6-1.3); POTASSIUM - SERUM 4.8 mmol/L (3.5-5.1); eGFR NON AFRICAN AMERICAN 78 mL/min (90-120)
[2019-06-28 06:09] VITALS: BP 116/72
--- NOTE | 2019-06-28 07:15 | NUR ---
PT SITTING UP IN BED WITH EYES OPEN ASKING ABOUT CURATOR BUTTON AND WHY IT WONT PUSH ALL THE TIME, EXPLAINED LOCK OUT INTERVALS TO HER. IV LOCATED TO LEFT HAND. CURRENTLY RCVING 2L VIA NC. NO S/S OF DISTRESS AT THIS TIME, DENIES OTHER NEEDS OTHER THAN A CUP OF COFFEE AT THIS TIME, WILL CONT TO MONITOR.
[2019-06-28 08:18] VITALS: BP 127/76
[2019-06-28 13:33] VITALS: BP 95/71
--- NOTE | 2019-06-28 14:21 | NUR ---
IN BED WATCHING TV WITH EYES OPEN, FRIEND AT THE BEDSIDE. REPORTS PAIN DOWN TO 8/10 STATES THAT THE NORCO IS HELPING HER PAIN MORE THAN THE MORPHINE.
[2019-06-28 16:14] VITALS: BP 101/63
--- NOTE | 2019-06-28 17:41 | NUR ---
PLEXI PULSE BOOT PLACED ON RIGHT SIDE.
--- NOTE | 2019-06-28 18:00 | NUR ---
RCVD PT VIA HOSPITAL STAFF FROM ER VIA HOSPITAL BED. DROWSY UPON ARRIVAL BUT EASILY AROUSED WITH SPEECH, NOW ALERT AND ORIENTED. IV LOCATED TO RIGHT FOREARM. MED REC COMPLETE. PT STATES THAT HAS TOLD HER IN THE PAST TO TAKE HER CYCLOSPORIN FROM HOME WHILE SHE IS AT THE HOSPITAL, CONG OLIVEIRA VERIFIED THIS IS ACCURATE AND ALLOWED BUT TO HOLD TONIGHTS DOSE DUE TO DEHYDRATION. PT DENIES ANY NEEDS AT THIS TIME, WILL CONT TO MONITOR.
[2019-06-28 19:00] VITALS: BP 110/68
--- NOTE | 2019-06-28 19:15 | NUR ---
LYING IN BED. ALERT AND ORIENTED X4. FORGETFUL AND CONFUSED AT TIMES. RESP EVEN AND NONLABORED. ENCOURAGED USE OF I.S. AND OBSERVED PT USING IT. DRSG WITH LAVELLE WRAP NOTED TO LLE. LLE ELEVATED ON PILLOW AND HEEL IS FLOATED. RATES PAIN IN LLE 7. SHEET METAL FOREMAN MORPHINE IN USE. PLEXI PULSE NOTED TO RLE. SCABS NOTED TO BUE. PSORIASIS NTOED TO BLE. HAGER CATH PATENT AND DRAINING CLEAR YELLOW URINE. NS @ 125 ML/HR INFUSING IN LT HAND WITHOUT DIFF. MORE COOPERATIVE AND PLEASANT TONIGHT. SR ELEVATED X2. CL IN REACH.
--- NOTE | 2019-06-28 22:30 | NUR ---
MEDICATED WITH NORCO FOR C/O PAIN IN LLE. CL IN REACH.
[2019-06-29] VITALS: BP 116/74
[2019-06-29 04:00] VITALS: BP 120/66
[2019-06-29 06:11] LABS: BASOPHILS 0.3 % (0-2); EOSINOPHILS 8.1 % (0-7); HEMOGLOBIN 9.8 g/dL (12-16); IMMATURE GRANULOCYTES 0.3 % (0-5); LYMPHOCYTES 24.1 % (15-50); MCH 29.2 pg (26.0-34.0); MCHC 30.6 g/dL (31.0-37.0); MCV 95.2 fL (80.0-100.0); MEAN PLATELET VOLUME 9.4 fL (7.4-10.4); MONOCYTES 12.9 % (2-11); NEUTROPHILS 54.3 % (40-80); RBC 3.36 10x6/uL (4.00-5.40); RDW 22.5 % (11.5-14.5)
[2019-06-29 06:28] LABS: PLATELET COUNT 216 10x3/uL (130-400); WBC 5.8 10x3/uL (4.8-10.8)
[2019-06-29 06:28] LABS: ALBUMIN 2.6 g/dL (3.4-5.0); ALKALINE PHOSPHATASE 158 U/L (46-116); CALCIUM 8.2 mg/dL (8.5-10.1); CARBON DIOXIDE 24.2 mmol/L (21.0-32.0); CHLORIDE - SERUM 107 mmol/L (98-107); CREATININE - SERUM 0.8 mg/dL (0.6-1.3); GLUCOSE 90 mg/dL (74-106); PROTEIN - SERUM 5.5 g/dL (6.4-8.2); SODIUM 139 mmol/L (136-145); eGFR NON AFRICAN AMERICAN 78 mL/min (90-120)
[2019-06-29 06:32] LABS: ALT (SGPT) 14 U/L (10-68); CALC OSMOLALITY 277 mosm/kg (275-300); POTASSIUM - SERUM 3.9 mmol/L (3.5-5.1); UREA NITROGEN 13 mg/dL (7-18)
--- NOTE | 2019-06-29 07:45 | NUR ---
PATIENT REQUESTED AND RECEIVED COFFEE. NO FURTHER NEEDS AT THIS TIME. CL IN REACH. WCTM
[2019-06-29 08:11] VITALS: BP 114/66
--- NOTE | 2019-06-29 10:34 | NUR ---
PATIENT WORKING WITH PT. UP ON SIDE OF BED. IV THERAPY KEEPS ALARMING. MAX LIMIT REACHED. I EXPLAINED TO HER THE REASON WHY THIS WAS HAPPENING. CL IN REACH. NO FURTHER NEEDS AT THIS TIME.
--- NOTE | 2019-06-29 12:06 | MORECARE ---
CASE MANAGEMENT DISCHARGE SUMMARY PATIENT: GUNJAN BROWN UNIT: [id number] ADM DATE: 06/27/19 AGE: 58 : 58 SEX: F ROOM/BED: D.2217 AUTHOR: JOAN LOCKWOOD PHYSICIAN: REFERRING PHYSICIAN: KARAN DOAN MD DATE OF SERVICE: 06/29/19 Discharge Plan Patient Name: GUNJAN BROWN [facility] [facility] 1960 Planned Disposition: Inpatient Rehab Anticipated Discharge Date: Discharge Date: Expected LOS: Initial Reviewer: [email or web address] Initial Review Date: 06/27/2019 Generated: 06/29/19 1:06 pm DCP- Discharge Planning Updated by [email or web address]: Marina Wilson on 06/28/19 2:[address] CM CONSULT RECEIVED . CM WENT TO VISIT THE PATIENT. SHE ASK THAT CM REVISIT AT ANOTHER TIME. SHE HAD A FRIEND AT THE BEDSIDE.. SHE ALSO WAS A LITTLE UNCOMFORTABLE. CM TO FOLLOW TO ASSIST WITH DISCHARGE PLANNING. PHYSICAL THERAPY EVAL DONE TODAY. REPORTED SUPINE TO SIT W/ MODERATE ASSIST. TOO PAINFUL FOR SIT TO STAND TODAY. PHYSICAL THERAPY TO FOLLOW AND PROGRESS. PATIENT REPORTEDLY LIVES W/ ROOMMATE. REPORTEDLY HAS NO STEPS TO ENTER HER HOME. Patient Name: GUNJAN BROWN Page [phone] at 1206 All edits/amendments must be made on the electronic document DICTATION DATE: 06/29/19 1206 DOUGH MIXER: JORDAN 06/29/19 1206 RPT#: [id number] DC DATE: STATUS: ADM IN [facility] [address] [place] [address] END OF REPORT
--- NOTE | 2019-06-29 12:15 | MORECARE ---
CASE MANAGEMENT DISCHARGE SUMMARY PATIENT: GUNJAN BROWN UNIT: [id number] ADM DATE: 06/27/19 AGE: 58 : 58 SEX: F ROOM/BED: D.1527 AUTHOR: FABIÁN,DOC PHYSICIAN: REFERRING PHYSICIAN: KARAN DOAN MD DATE OF SERVICE: 06/29/19 Discharge Plan Patient Name: GUNJAN BROWN Facility: [facility]:[place] : 1960 Planned Disposition: Inpatient Rehab Anticipated Discharge Date: Discharge Date: Expected LOS: Initial Reviewer: [email or web address] Initial Review Date: 06/27/2019 Generated: 06/29/19 1:15 pm Comments DCP- Discharge Planning Updated by [email or web address]: Bettina Kothari on 06/29/19 11:[address] Patient Name: GUNJAN BROWN Admission Status: ER Accout number: [id number] Admission Date: 06-27-2019 : 1960 Admission Diagnosis: Attending: KARAN DOAN Current LOS: 2 Anticipated DC Date: Planned Disposition: Inpatient Rehab Primary Insurance: HUMANA CHOICE PPO MCR [employer] Discharge Planning Comments: CM met with patient to complete initial dc planning assessment. CM educated patient on the CM role and verbal consent given by patient to complete assessment. Patient lives at home with her ex who will be her truck driver rubbish collector home at discharge. She stated that he is helpful, but works so she will be alone when discharged. At discharge patient would like to go to inpatient rehab at [facility] and feels this is a safe discharge. She is a managed medicare and will need prior auth to be accepted. We have stated the process for that. Patient has a BSC, Nebulizer, rolling walker, shower chair, walker and wheelchair at home. Patient denied known discharge needs at this time. CM will continue to follow and will assist as needed with dc plans/needs. Tax Representative: Bettina Kothari DCP- Discharge Planning Updated by [email or web address]: Marina Wilson on 06/28/19 2:[address] CM CONSULT RECEIVED . CM WENT TO VISIT THE PATIENT. SHE ASK THAT CM REVISIT AT ANOTHER TIME. SHE HAD A FRIEND AT THE BEDSIDE.. SHE ALSO WAS A LITTLE UNCOMFORTABLE. CM TO FOLLOW TO ASSIST WITH DISCHARGE PLANNING. PHYSICAL THERAPY EVAL DONE TODAY. REPORTED SUPINE TO SIT W/ MODERATE ASSIST. TOO PAINFUL FOR SIT TO STAND TODAY. PHYSICAL THERAPY TO FOLLOW AND PROGRESS. PATIENT REPORTEDLY LIVES W/ ROOMMATE. REPORTEDLY HAS NO STEPS TO ENTER HER HOME. DCPIA - Discharge Planning Initial Assessment Updated by [email or web address]: Bettina Kothari on 06/29/19 12:06 pm * Is the patient Alert and Oriented? Yes * How many steps to enter\exit or inside your home? none * PCP [facility] * Pharm[facility] * Preadmission Environment Home with Family * ADLs Independent * Equipment Bedside Commode Nebulizer Rolling Walker Shower Chair Walker Wheelchair * List name and contact numbers for known caregivers / representatives who currently or will assist patient after discharge: FERNANDO ALANIS (EX ) [phone] * Verbal permission to speak to the caregivers and representatives has been obtained from the patient. N/A * Community resources currently utilized None * Additional services required to return to the preadmission environment? Yes * Can the patient safely return to the preadmission environment? Yes * Has this patient been hospitalized within the prior 30 days at any hospital? No Last DP export: 06/29/19 11:06 a Patient Name: GUNJAN BROWN Page [id number] at 1215 All edits/amendments must be made on the electronic document DICTATION DATE: 06/29/19 1215 COLLAR STITCHER: JORDAN 06/29/19 1215 RPT#: [id number] DC DATE: STATUS: ADM IN [facility] [address] [place] [address] END OF REPORT
--- NOTE | 2019-06-29 14:34 | NUR ---
PATIENT DRESSING CHANGED. XEROFORM, DRAIN SPONGE, KERLEX, AND LAVELLE WRAP APPLIED AFTER CLEANING EXTERNAL FIXATION WITH QTIPS AND HYDROGEN PEROXIDE. TOLERATED WELL UNTIL I CLEANED HER HEAL. REQUESTS HOME HEALTH TO CHANGE HER DRESSING WHEN SHE GOES HOME SHE FEELS THAT SHE IS NOT DEXTEROUS ENOUGH TO DO THIS HERSELF. CL IN REACH. NO FURTHER NEEDS AT THIS TIME.
[2019-06-29 15:00] VITALS: BP 108/52
--- NOTE | 2019-06-29 15:50 | NUR ---
Recieved a V/M from [facility]. The MD has denied acute rehab for this patient and recommends a lower level of care. If physician disagrees a peer to peer can be done by calling with the acute care attending MD's contact information on or before 11:00 AM Saturday. Sade Burnett RN Clinical liaison, Rehab
--- NOTE | 2019-06-29 16:31 | NUR ---
PATIENT REQUESTED AND RECIEVED COFFEE. EXPLAINED THAT SHE WAS GETTING SINGULAIR THIS AFTERNOON FOR HER SINUSES AND BUMEX HAS BEEN FIXED TO HER 2 MG SHE SAYS SHE TAKES. FLUIDS TURNED DOWN TO 30 ML FOR SCRUM PRODUCT OWNER PUMP. CL IN REACH. NO FURTHER NEEDS AT THIS TIME.
[2019-06-29 16:41] VITALS: BP 108/52
--- NOTE | 2019-06-29 20:00 | NUR ---
ASSESSMENT PER FLOWSHEET. LAVELLE WRAP WITH EXTENAL FIXATOR IN PLACE TO LEFT LOWER EXTREMITY. IV PATENT TO LEFT HAND OF NS AT 30 CC'S/HR SITE CLEAR. FAST FOOD DELIVERY DRIVER OF MORPHINE IN USE WITH SETTINGS AT 1MG Q10MIN W/10MG Q4H L/O. REQUESTING NORCOFOR BREAKTHROUGH PAIN.
--- NOTE | 2019-06-29 20:12 | NUR ---
REQUESTING PAIN MED. NORCO 10/325MG TAB ONE PO. GIVEN FOR PAIN CONTROL. SPOUSE IN ROOM.
[2019-06-29 20:24] VITALS: BP 112/64
--- NOTE | 2019-06-29 21:00 | NUR ---
MEDS GIVEN PER NOV. LEFT LEG ELEVATED ON 2 PILLOWS. HAGER TO BEDSIDE DRAINAGE WITH YELLOW URINE. PLEXI PULSE BOOT TO RT FOOT.
--- NOTE | 2019-06-30 | NUR ---
EYES CLOSED RESPIRATIONS WITH EASE AND UNLABORED.
[2019-06-30 00:30] VITALS: BP 126/60
--- NOTE | 2019-06-30 04:30 | NUR ---
C/O PAIN REQUESTING PAIN PILL FOR BREAKTHROUGH PAIN. NORCO 10/325MG TAB ONE PO GIVEN FOR PAIN CONTROL. REPOSITIONED LEFT FOOT ON PILLOWS. REFILLED MORPHINE BUDGET EXAMINER. COFFEE GIVEN TO PATIENT.
[2019-06-30 05:11] VITALS: BP 123/68
[2019-06-30 06:29] LABS: ALBUMIN 2.4 g/dL (3.4-5.0); ALKALINE PHOSPHATASE 125 U/L (46-116); ALT (SGPT) 14 U/L (10-68); CALC OSMOLALITY 281 mosm/kg (275-300); CALCIUM 8.3 mg/dL (8.5-10.1); CARBON DIOXIDE 24.6 mmol/L (21.0-32.0); CHLORIDE - SERUM 109 mmol/L (98-107); GLUCOSE 97 mg/dL (74-106); PROTEIN - SERUM 5.5 g/dL (6.4-8.2); SODIUM 142 mmol/L (136-145); UREA NITROGEN 10 mg/dL (7-18)
[2019-06-30 06:30] LABS: CREATININE - SERUM 0.5 mg/dL (0.6-1.3); eGFR NON AFRICAN AMERICAN > 90 mL/min (90-120)
[2019-06-30 06:31] LABS: POTASSIUM - SERUM 4.5 mmol/L (3.5-5.1)
--- NOTE | 2019-06-30 06:40 | NUR ---
RESTING QUIETLY DENIES NEEDS.
[2019-06-30 06:55] LABS: BASOPHILS 0.2 % (0-2); HEMATOCRIT 28.8 % (36.0-48.0); IMMATURE GRANULOCYTES 0.2 % (0-5); LYMPHOCYTES 22.3 % (15-50); MCH 29.3 pg (26.0-34.0); MCHC 31.3 g/dL (31.0-37.0); MCV 93.8 fL (80.0-100.0); MEAN PLATELET VOLUME 9.2 fL (7.4-10.4); MONOCYTES 10.8 % (2-11); NEUTROPHILS 58.5 % (40-80); PLATELET COUNT 205 10x3/uL (130-400); RBC 3.07 10x6/uL (4.00-5.40); RDW 22.2 % (11.5-14.5); WBC 5.3 10x3/uL (4.8-10.8)
--- NOTE | 2019-06-30 08:00 | NUR ---
ASSESSMENT PER FLOW SHEET. PT IS WITHHOUT DISTRESS.CALL LIGHT IN REACH
[2019-06-30 08:28] VITALS: BP 136/70
[2019-06-30 13:13] VITALS: BP 110/60
--- NOTE | 2019-06-30 14:43 | MORECARE ---
CASE MANAGEMENT DISCHARGE SUMMARY PATIENT: GUNJAN BROWN UNIT: [id number] ADM DATE: 06/27/19 AGE: 58 : 58 SEX: F ROOM/BED: D.2217 AUTHOR: FABIÁN,DOC PHYSICIAN: REFERRING PHYSICIAN: KARAN DOAN MD DATE OF SERVICE: 06/30/19 Discharge Plan Patient Name: GUNJAN BROWN Facility: [facility]:[place] : 1960 Planned Disposition: Inpatient Rehab Anticipated Discharge Date: Discharge Date: Expected LOS: Initial Reviewer: [id number] Initial Review Date: 06/27/2019 Generated: 06/30/19 3:43 pm Comments DCP- Discharge Planning Updated by [id number]: Bettina Kothari on 06/30/19 1:[address] IMM SERVED AND EXPLAINED, PATIENT HAS BEEN DENIED FOR INPATIENT REHAB, AIDA FOR [facility]. SHE DOES NOT WANT TO GO TO A SKILLED FACILITY DCP- Discharge Planning Updated by [id number]: Bettina Kothari on 06/29/19 11:[address] Patient Name: GUNJAN BROWN Admission Status: ER Accout number: [id number] Admission Date: 06-27-2019 : 1960 Admission Diagnosis: Attending: KARAN DOAN Current LOS: 2 Anticipated DC Date: Planned Disposition: Inpatient Rehab Primary Insurance: [employer] CHOICE PPO MCR ADVANT Discharge Planning Comments: CM met with patient to complete initial dc planning assessment. CM educated patient on the CM role and verbal consent given by patient to complete assessment. Patient lives at home with her ex who will be her bulk tank driver home at discharge. She stated that he is helpful, but works so she will be alone when discharged. At discharge patient would like to go to inpatient rehab at [facility] and feels this is a safe discharge. She is a managed medicare and will need prior auth to be accepted. We have stated the process for that. Patient has a BSC, Nebulizer, rolling walker, shower chair, walker and wheelchair at home. Patient denied known discharge needs at this time. CM will continue to follow and will assist as needed with dc plans/needs. Escort Patients: Bettina Kothari DCP- Discharge Planning Updated by [email or web address]: Marina Wilson on 06/28/19 2:[address] CM CONSULT RECEIVED . CM WENT TO VISIT THE PATIENT. SHE ASK THAT CM REVISIT AT ANOTHER TIME. SHE HAD A FRIEND AT THE BEDSIDE.. SHE ALSO WAS A LITTLE UNCOMFORTABLE. CM TO FOLLOW TO ASSIST WITH DISCHARGE PLANNING. PHYSICAL THERAPY EVAL DONE TODAY. REPORTED SUPINE TO SIT W/ MODERATE ASSIST. TOO PAINFUL FOR SIT TO STAND TODAY. PHYSICAL THERAPY TO FOLLOW AND PROGRESS. PATIENT REPORTEDLY LIVES W/ ROOMMATE. REPORTEDLY HAS NO STEPS TO ENTER HER HOME. DCPIA - Discharge Planning Initial Assessment Updated by [id number]: Bettina Kothari on 06/29/19 12:06 pm * Is the patient Alert and Oriented? Yes * How many steps to enter\exit or inside your home? none * [facility] * Pharm[facility] * Preadmission Environment Home with Family * ADLs Independent * Equipment Bedside Commode Nebulizer Rolling Walker Shower Chair Walker Wheelchair * List name and contact numbers for known caregivers / representatives who currently or will assist patient after discharge: FERNANDO ANNABELLE (EX ) [phone] * Verbal permission to speak to the caregivers and representatives has been obtained from the patient. N/A * Community resources currently utilized None * Additional services required to return to the preadmission environment? Yes * Can the patient safely return to the preadmission environment? Yes * Has this patient been hospitalized within the prior 30 days at any hospital? No Coverage Notice Reviewer: [id number] Gary Kothari Notice Issued Date-Time: 06/30/2019 10:10 Notice Type: IM Discharge Notice Notice Delivered To: Patient Relationship to Patient: Child Daycare Worker Name: Delivery Method: HAND - Hand Delivered Mayte Days: Prior Verbal Notification: Recipient Understood Notice: Yes Recipient Signature: Yes Med Rec Note Co-signed by Attending: Coverage Notice Comment: Reviewer: [id number] Gary Kothari Notice Issued Date-Time: 06/30/2019 10:10 Notice Type: Patient Choice Letter Notice Delivered To: Patient Relationship to Patient: Child Daycare Worker Name: Delivery Method: HAND - Hand Delivered Mayte Days: Prior Verbal Notification: Recipient Understood Notice: Yes Recipient Signature: Yes Med Rec Note Co-signed by Attending: Coverage Notice Comment: Last DP export: 06/29/19 11:15 a Patient Name: GUNJAN BROWN Page 37813 at 1443 All edits/amendments must be made on the electronic document DICTATION DATE: 06/30/191442 LOCATOR: JORDAN 06/30/191442 RPT#: [id number] DC DATE: STATUS: ADM IN [facility] [address] [place] [address] END OF REPORT
--- NOTE | 2019-06-30 14:49 | NUR ---
OT NOTE: PT AGREEABLE TO SIT ON EOB. ABLE TO PERFORM WITH ONLY MIN ASSIST. ABLE TO MITCH GOWN AND ROBE WITH MIN ASSIST. MOD ASSIST TO MITCH R SOCK. SET UP FOR SIMPLE GROOMING TASKS. GOOD SITTING BALANCE ON EOB. SIT TO STAND WITH MIN ASSIST. ABLE TO STAND FOR APPROX 2 MIN WHILE HER BED WAS BEING CHANGED. EDUCATED ON EXERCISES SHE COULD PERFORM IN BED. RETURNED BACK TO BED WITH MIN ASSIST AND ELEVATED L FOOT ON PILLOWS.. ROSALINDA BLEVINS, OTR/L
--- NOTE | 2019-06-30 15:46 | NUR ---
OT NOTE: PT COMPLETED BED MOB TASKS WITH SUPV. PT COMPLETED HYGIENE TASKS WITH MIN A. PT COMPLETED BUE AROM. THANK YOU,CORINA MCNULTY
[2019-06-30 16:41] VITALS: BP 100/52
[2019-06-30 20:49] VITALS: BP 128/70
[2019-07-01 01:12] VITALS: BP 126/63
--- NOTE | 2019-07-01 03:01 | NUR ---
PT RESTING IN BED. EYES CLOSED. NO SIGNS OF DISTRESS. BREATHING EVEN AND UNLABORED. SKIN CLEAN DRY AND INTACT. NO IV SITE. BOWEL SOUNDS ACTIVE. LT LOWER LEG CAST PRESENT. CLEAN DRY AND INTACT. HAGER IN PLACE CLEAN DRY AND INTACT. WILL CONTINUE PLAN OF CARE. CALL LIGHT IN REACH. BED LOWERED AND LOCKED. BED RAILS UPX2.
--- NOTE | 2019-07-01 03:19 | NUR ---
I have reviewed this patient and I concur with the Shift Assessment completed by the Licensed Practical Nurse today this shift.
[2019-07-01 05:03] VITALS: BP 154/74
[2019-07-01 06:46] LABS: ALBUMIN 2.5 g/dL (3.4-5.0); ALKALINE PHOSPHATASE 138 U/L (46-116); ALT (SGPT) 15 U/L (10-68); CALC OSMOLALITY 287 mosm/kg (275-300); CALCIUM 8.5 mg/dL (8.5-10.1); CHLORIDE - SERUM 110 mmol/L (98-107); CREATININE - SERUM 0.6 mg/dL (0.6-1.3); GLUCOSE 96 mg/dL (74-106); PROTEIN - SERUM 6.2 g/dL (6.4-8.2); SODIUM 145 mmol/L (136-145); UREA NITROGEN 9 mg/dL (7-18); eGFR NON AFRICAN AMERICAN > 90 mL/min (90-120)
[2019-07-01 06:47] LABS: POTASSIUM - SERUM 3.4 mmol/L (3.5-5.1)
[2019-07-01 08:17] VITALS: BP 127/52
--- NOTE | 2019-07-01 09:00 | NUR ---
ASSESSMENT PER FLOW SHEET.PT IS WITHOUT DISTRESS.MOITOR FOR NEEDS.
[2019-07-01 09:11] LABS: BASOPHILS 0.4 % (0-2); EOSINOPHILS 10.4 % (0-7); HEMATOCRIT 32.6 % (36.0-48.0); HEMOGLOBIN 10.3 g/dL (12-16); IMMATURE GRANULOCYTES 0.2 % (0-5); LYMPHOCYTES 26.4 % (15-50); MCH 29.6 pg (26.0-34.0); MCHC 31.6 g/dL (31.0-37.0); MCV 93.7 fL (80.0-100.0); MEAN PLATELET VOLUME 9.1 fL (7.4-10.4); MONOCYTES 9.4 % (2-11); NEUTROPHILS 53.2 % (40-80); RBC 3.48 10x6/uL (4.00-5.40); WBC 5.1 10x3/uL (4.8-10.8)
[2019-07-01 09:13] LABS: PLATELET COUNT 268 10x3/uL (130-400)
[2019-07-01 11:26] VITALS: BP 108/60
--- NOTE | 2019-07-01 14:27 | NUR ---
OT NOTE: PT IN BED WITH LIGHTS OFF. STATES THAT SHE FEELS DEPRESSED TODAY. QUESTIONED IF PT REMEMBERED TALKING WITH DELIVERY TECH REGARDING DC PLANS.. PT STATES THAT SHE DOESNT REMEMBER BEING TOLD THAT SHE WAS DENIED REHAB AND DOES NOT REMEMBER SIGNING ANY PAPERS. ( PT DID SIGN IN AGREEMENT TO SERVICES) PT THEN BECAME VERY ALARMED THAT SHE WAS GOING TO DC TODAY. STATED THAT SHE COULD NOT DC BECAUSE NOTHING WAS READY AT HOME AND THERE WAS NO ONE TO PICK HER UP AND SHE JUST WAS NOT READY TO GO HOME. MYSELF AND PHYSICAL THERAPIST HAD HER PRACTICED TRANSFERS TO AND FROM CHAIR AND TOILET. SHE WAS ABLE TO PERFORM WITH SBA AND VERBAL CUES. EDUCATED SHEET PILE HAMMER OPERATOR WITH TRANSFERS TO BSC FOR WHEN PTS CATHETER WAS REMOVED. PT ABLE TO PERFORM BED MOB AND WAS INSTRUCTED TO SIT UP ON EOB FOR ALL MEALS. ROSALINDA BLEVINS, OTR/L
--- NOTE | 2019-07-01 15:05 | NUR ---
DRESSING CHANGE AND PIN CARE ORDERED
[2019-07-01 16:01] VITALS: BP 94/54
--- NOTE | 2019-07-01 18:20 | NUR ---
REMAINS WITHOUT CHANGE.CONT PLAN OF CARE
[2019-07-01 20:53] VITALS: BP 107/64
--- NOTE | 2019-07-02 01:16 | NUR ---
PT RESTING IN BED. EYES CLOSED. NO SIGNS OF DISTRESS. BREATHING EVEN AND UNLABORED. NO IV SITE. LUNG SOUNDS CLEAR. BOWEL SOUNDS ACTIVE. LT LEG DRESSING CLEAN DRY AND INTACT. WILL CONTINUE PLAN OF CARE. CALL LIGHT IN REACH. BED LOWERED AND LOCKED. BED RAILS UPX2.
--- NOTE | 2019-07-02 04:15 | NUR ---
I have reviewed this patient and I concur with the Shift Assessment completed by the Licensed Practical Nurse today this shift.
[2019-07-02 05:06] VITALS: BP 154/80
[2019-07-02 06:57] LABS: ALBUMIN 2.5 g/dL (3.4-5.0); ALKALINE PHOSPHATASE 121 U/L (46-116); ALT (SGPT) 12 U/L (10-68); BILIRUBIN - TOTAL 0.27 mg/dL (0.2-1.3); CALCIUM 8.6 mg/dL (8.5-10.1); CHLORIDE - SERUM 109 mmol/L (98-107); CREATININE - SERUM 0.7 mg/dL (0.6-1.3); GLUCOSE 85 mg/dL (74-106); POTASSIUM - SERUM 3.4 mmol/L (3.5-5.1); PROTEIN - SERUM 6.5 g/dL (6.4-8.2); SODIUM 146 mmol/L (136-145); eGFR NON AFRICAN AMERICAN > 90 mL/min (90-120)
[2019-07-02 06:58] LABS: CALC OSMOLALITY 289 mosm/kg (275-300); CARBON DIOXIDE 30.2 mmol/L (21.0-32.0); UREA NITROGEN 12 mg/dL (7-18)
[2019-07-02 07:53] VITALS: BP 106/62
[2019-07-02 07:59] LABS: BASOPHILS 0.3 % (0-2); EOSINOPHILS 12.9 % (0-7); HEMATOCRIT 31.6 % (36.0-48.0); HEMOGLOBIN 9.9 g/dL (12-16); LYMPHOCYTES 35.1 % (15-50); MCH 29.3 pg (26.0-34.0); MCHC 31.3 g/dL (31.0-37.0); MCV 93.5 fL (80.0-100.0); MEAN PLATELET VOLUME 9.5 fL (7.4-10.4); MONOCYTES 9.9 % (2-11); NEUTROPHILS 41.8 % (40-80); PLATELET COUNT 320 10x3/uL (130-400); RBC 3.38 10x6/uL (4.00-5.40); RDW 22.3 % (11.5-14.5); WBC 5.8 10x3/uL (4.8-10.8)
--- NOTE | 2019-07-02 08:15 | NUR ---
PATIENT IN BED WITH NO COMPLAINTS OR SIGNS OF DISTRESS. IV INTACT. DRESSING TO LEG CDI. CALL LIGHT WITHIN REACH.
--- NOTE | 2019-07-02 10:45 | NUR ---
PATIENT IN BED WITH IV INTACT. NO COMPLAINTS OR SIGNS OF DISTRESS. FAMILY AT BEDSIDE. CALL LIGHT WITHIN REACH.
--- NOTE | 2019-07-02 11:08 | MORECARE ---
CASE MANAGEMENT DISCHARGE SUMMARY PATIENT: GUNJAN BROWN UNIT: [id number] ADM DATE: 06/27/19 AGE: 58 : 58 SEX: F ROOM/BED: D.2217 AUTHOR: FABIÁN,DOC PHYSICIAN: REFERRING PHYSICIAN: KARAN DOAN MD DATE OF SERVICE: 07/02/19 Discharge Plan Patient Name: GUNJAN BROWN Facility: [facility]:[place] : 1960 Planned Disposition: Inpatient Rehab Anticipated Discharge Date: Discharge Date: Expected LOS: Initial Reviewer: [id number] Initial Review Date: 06/27/2019 Generated: 07/02/19 12:08 pm Comments DCP- Discharge Planning Updated by [id number]: Bettina Kothari on 06/30/19 1:[address] IMM SERVED AND EXPLAINED, PATIENT HAS BEEN DENIED FOR INPATIENT REHAB, AIDA FOR [facility]. SHE DOES NOT WANT TO GO TO A SKILLED FACILITY DCP- Discharge Planning Updated by [id number]: Bettina Kothari on 06/29/19 11:[address] Patient Name: GUNJAN BROWN Admission Status: ER Accout number: [id number] Admission Date: 06-27-2019 : 1960 Admission Diagnosis: Attending: KARAN DOAN Current LOS: 2 Anticipated DC Date: Planned Disposition: Inpatient Rehab Primary Insurance: [employer] CHOICE PPO MCR ADVANT Discharge Planning Comments: CM met with patient to complete initial dc planning assessment. CM educated patient on the CM role and verbal consent given by patient to complete assessment. Patient lives at home with her ex who will be her tanker driver home at discharge. She stated that he is helpful, but works so she will be alone when discharged. At discharge patient would like to go to inpatient rehab at [facility] and feels this is a safe discharge. She is a managed medicare and will need prior auth to be accepted. We have stated the process for that. Patient has a BSC, Nebulizer, rolling walker, shower chair, walker and wheelchair at home. Patient denied known discharge needs at this time. CM will continue to follow and will assist as needed with dc plans/needs. Peoplesoft Hrms Developer: Bettina Kothari DCP- Discharge Planning Updated by [id number]: Marina Wilson on 06/28/19 2:[address] CM CONSULT RECEIVED . CM WENT TO VISIT THE PATIENT. SHE ASK THAT CM REVISIT AT ANOTHER TIME. SHE HAD A FRIEND AT THE BEDSIDE.. SHE ALSO WAS A LITTLE UNCOMFORTABLE. CM TO FOLLOW TO ASSIST WITH DISCHARGE PLANNING. PHYSICAL THERAPY EVAL DONE TODAY. REPORTED SUPINE TO SIT W/ MODERATE ASSIST. TOO PAINFUL FOR SIT TO STAND TODAY. PHYSICAL THERAPY TO FOLLOW AND PROGRESS. PATIENT REPORTEDLY LIVES W/ ROOMMATE. REPORTEDLY HAS NO STEPS TO ENTER HER HOME. DCPIA - Discharge Planning Initial Assessment Updated by [id number]: Bettina Kothari on 06/29/19 12:06 pm * Is the patient Alert and Oriented? Yes * How many steps to enter\exit or inside your home? none * [facility]CP [facility] * [facility] * Preadmission Environment Home with Family * ADLs Independent * Equipment Bedside Commode Nebulizer Rolling Walker Shower Chair Walker Wheelchair * List name and contact numbers for known caregivers / representatives who currently or will assist patient after discharge: FERNANDO ALAINS (EX ) [phone] * Verbal permission to speak to the caregivers and representatives has been obtained from the patient. N/A * Community resources currently utilized None * Additional services required to return to the preadmission environment? Yes * Can the patient safely return to the preadmission environment? Yes * Has this patient been hospitalized within the prior 30 days at any hospital? No External Providers [facility] [place] Next Contact Date: Service Request Date: Service Type: Resolution: Reviewer: Comments: [facility] Next Contact Date: Service Request Date: Service Type: Resolution: Reviewer: Comments: Coverage Notice Reviewer: [id number] Gary Kothari Notice Issued Date-Time: 06/30/2019 10:10 Notice Type: IM Discharge Notice Notice Delivered To: Patient Relationship to Patient: Canadian Bacon Tier Name: Delivery Method: HAND - Hand Delivered Mayte Days: Prior Verbal Notification: Recipient Understood Notice: Yes Recipient Signature: Yes Med Rec Note Co-signed by Attending: Coverage Notice Comment: Reviewer: [id number] Gary Kothari Notice Issued Date-Time: 06/30/2019 10:10 Notice Type: Patient Choice Letter Notice Delivered To: Patient Relationship to Patient: Canadian Bacon Tier Name: Delivery Method: HAND - Hand Delivered Mayte Days: Prior Verbal Notification: Recipient Understood Notice: Yes Recipient Signature: Yes Med Rec Note Co-signed by Attending: Coverage Notice Comment: Last DP export: 06/30/19 1:43 p Patient Name: GUNJAN BROWN Page [id number] at 1108 All edits/amendments must be made on the electronic document DICTATION DATE: 07/02/191107 BLUEPRINTING AND PHOTOCOPY SUPERVISOR: JORDAN 07/02/191107 RPT#: [id number] DC DATE: STATUS: ADM IN [facility] [address] [place] [address] END OF REPORT
--- NOTE | 2019-07-02 11:16 | MORECARE ---
CASE MANAGEMENT DISCHARGE SUMMARY PATIENT: GUNJAN BROWN UNIT: [id number] ADM DATE: 06/27/19 AGE: 58 : 58 SEX: F ROOM/BED: D.2217 AUTHOR: FABIÁN,DOC PHYSICIAN: REFERRING PHYSICIAN: KARAN DOAN MD DATE OF SERVICE: 07/02/19 Discharge Plan Patient Name: GUNJAN BROWN Facility: [facility]:[place] : 1960 Planned Disposition: Inpatient Rehab Anticipated Discharge Date: Discharge Date: Expected LOS: Initial Reviewer: [id number] Initial Review Date: 06/27/2019 Generated: 07/02/19 12:16 pm Comments DCP- Discharge Planning Updated by [id number]: Bettina Kothari on 07/02/19 10:[address] SPOKE WITH PATIENT ABOUT [facility], [facility] FOR [facility] AND [facility] I CALLED [facility] AND SENT REFERRAL FOR BOTH FACILITIES, IMM SERVED AND EXPLAINED AGAIN CM TO FOLLOW AND ASSIST DCP- Discharge Planning Updated by [email or web address]: Btetina Kothari on 06/30/19 1:[address] IMM SERVED AND EXPLAINED, PATIENT HAS BEEN DENIED FOR INPATIENT REHAB, [facility] SHE DOES NOT WANT TO GO TO A SKILLED FACILITY DCP- Discharge Planning Updated by [email or web address]: Bettina Kothari on 06/29/19 11:[address] Patient Name: GUNJAN BROWN Admission Status: ER Accout number: [id number] Admission Date: 06-27-2019 : 1960 Admission Diagnosis: Attending: KARAN DOAN Current LOS: 2 Anticipated DC Date: Planned Disposition: Inpatient Rehab Primary Insurance: [employer] CHOICE PPO MCR ADVANT Discharge Planning Comments: CM met with patient to complete initial dc planning assessment. CM educated patient on the CM role and verbal consent given by patient to complete assessment. Patient lives at home with her ex who will be her driver engineer home at discharge. She stated that he is helpful, but works so she will be alone when discharged. At discharge patient would like to go to inpatient rehab at [facility] and feels this is a safe discharge. She is a managed medicare and will need prior auth to be accepted. We have stated the process for that. Patient has a BSC, Nebulizer, rolling walker, shower chair, walker and wheelchair at home. Patient denied known discharge needs at this time. CM will continue to follow and will assist as needed with dc plans/needs. Jacquard Loom Fixer: Bettina Kothari DCP- Discharge Planning Updated by [email or web address]: Marina Wilson on 06/28/19 2:[address] CM CONSULT RECEIVED . CM WENT TO VISIT THE PATIENT. SHE ASK THAT CM REVISIT AT ANOTHER TIME. SHE HAD A FRIEND AT THE BEDSIDE.. SHE ALSO WAS A LITTLE UNCOMFORTABLE. CM TO FOLLOW TO ASSIST WITH DISCHARGE PLANNING. PHYSICAL THERAPY EVAL DONE TODAY. REPORTED SUPINE TO SIT W/ MODERATE ASSIST. TOO PAINFUL FOR SIT TO STAND TODAY. PHYSICAL THERAPY TO FOLLOW AND PROGRESS. PATIENT REPORTEDLY LIVES W/ ROOMMATE. REPORTEDLY HAS NO STEPS TO ENTER HER HOME. DCPIA - Discharge Planning Initial Assessment Updated by [id number]: Bettina Kothari on 06/29/19 12:06 pm * Is the patient Alert and Oriented? Yes * How many steps to enter\exit or inside your home? none * [facility]CP [facility] * [facility] * Preadmission Environment Home with Family * ADLs Independent * Equipment Bedside Commode Nebulizer Rolling Walker Shower Chair Walker Wheelchair * List name and contact numbers for known caregivers / representatives who currently or will assist patient after discharge: FERNANDO ALANIS (EX ) [phone] * Verbal permission to speak to the caregivers and representatives has been obtained from the patient. N/A * Community resources currently utilized None * Additional services required to return to the preadmission environment? Yes * Can the patient safely return to the preadmission environment? Yes * Has this patient been hospitalized within the prior 30 days at any hospital? No Coverage Notice Reviewer: [id number] Gary Kothari Notice Issued Date-Time: 06/30/2019 10:10 Notice Type: IM Discharge Notice Notice Delivered To: Patient Relationship to Patient: Bioassayist Name: Delivery Method: HAND - Hand Delivered Mayte Days: Prior Verbal Notification: Recipient Understood Notice: Yes Recipient Signature: Yes Med Rec Note Co-signed by Attending: Coverage Notice Comment: Reviewer: [id number] Gary Kothari Notice Issued Date-Time: 06/30/2019 10:10 Notice Type: Patient Choice Letter Notice Delivered To: Patient Relationship to Patient: Bioassayist Name: Delivery Method: HAND - Hand Delivered Mayte Days: Prior Verbal Notification: Recipient Understood Notice: Yes Recipient Signature: Yes Med Rec Note Co-signed by Attending: Coverage Notice Comment: Reviewer: [id number] Kothari Notice Issued Date-Time: 07/02/2019 11:00 Notice Type: IM Discharge Notice Notice Delivered To: Patient Relationship to Patient: Bioassayist Name: Delivery Method: HAND - Hand Delivered Mayte Days: Prior Verbal Notification: Recipient Understood Notice: Yes Recipient Signature: Yes Med Rec Note Co-signed by Attending: Coverage Notice Comment: Reviewer: [id number] Kothari Notice Issued Date-Time: 07/02/2019 11:00 Notice Type: Patient Choice Letter Notice Delivered To: Patient Relationship to Patient: Bioassayist Name: Delivery Method: HAND - Hand Delivered Mayte Days: Prior Verbal Notification: Recipient Understood Notice: Yes Recipient Signature: Yes Med Rec Note Co-signed by Attending: Coverage Notice Comment: [facility] Last DP export: 07/02/19 10:08 Patient Name: GUNJAN BROWN Page [id number] at 1116 All edits/amendments must be made on the electronic document DICTATION DATE: 07/02/19 1116 CRUSHER FOREMAN: JORDAN 07/02/19 1116 RPT#: [id number] DC DATE: STATUS: ADM IN [facility] [address] [place] [address] END OF REPORT
--- NOTE | 2019-07-02 12:03 | MORECARE ---
CASE MANAGEMENT DISCHARGE SUMMARY PATIENT: GUNJAN BROWN UNIT: [id number] ADM DATE: 06/27/19 AGE: 58 : 58 SEX: F ROOM/BED: D.2217 AUTHOR: FABIÁN,DOC PHYSICIAN: REFERRING PHYSICIAN: KARAN DOAN MD DATE OF SERVICE: 07/02/19 Discharge Plan Patient Name: GUNJAN BROWN Facility: [facility]:[place] : 1960 Planned Disposition: Inpatient Rehab Anticipated Discharge Date: Discharge Date: Expected LOS: Initial Reviewer: [id number] Initial Review Date: 06/27/2019 Generated: 07/02/19 1:03 pm Comments DCP- Discharge Planning Updated by [email or web address]: Bettina Kothari on 07/02/19 11:[address] [facility] SENT DCP- Discharge Planning Updated by [email or web address]: Bettina Kothari on 07/02/19 10:[address] SPOKE WITH PATIENT ABOUT [facility], [facility] FOR [facility] AND [place] I CALLED [facility] AND SENT REFERRAL FOR BOTH FACILITIES, IMM SERVED AND EXPLAINED AGAIN CM TO FOLLOW AND ASSIST DCP- Discharge Planning Updated by [email or web address]: Bettina Kothari on 06/30/19 1:[address] IMM SERVED AND EXPLAINED, PATIENT HAS BEEN DENIED FOR INPATIENT REHAB, AIDA FOR [facility]. SHE DOES NOT WANT TO GO TO A SKILLED FACILITY DCP- Discharge Planning Updated by [email or web address]: Bettina Kothari on 06/29/19 11:[address] Patient Name: GUNJAN BROWN Admission Status: ER Accout number: [id number] Admission Date: 06-27-2019 : 1960 Admission Diagnosis: Attending: KARAN DOAN Current LOS: 2 Anticipated DC Date: Planned Disposition: Inpatient Rehab Primary Insurance: [employer] CHOICE PPO MCR ADVANT Discharge Planning Comments: CM met with patient to complete initial dc planning assessment. CM educated patient on the CM role and verbal consent given by patient to complete assessment. Patient lives at home with her ex who will be her trolley coach driver home at discharge. She stated that he is helpful, but works so she will be alone when discharged. At discharge patient would like to go to inpatient rehab at [facility] and feels this is a safe discharge. She is a managed medicare and will need prior auth to be accepted. We have stated the process for that. Patient has a BSC, Nebulizer, rolling walker, shower chair, walker and wheelchair at home. Patient denied known discharge needs at this time. CM will continue to follow and will assist as needed with dc plans/needs. Research Professor Of Biostatistics: Bettina Kothari DCP- Discharge Planning Updated by [email or web address]: Marinamarialuisa Wilson on 06/28/19 2:[address] CM CONSULT RECEIVED . CM WENT TO VISIT THE PATIENT. SHE ASK THAT CM REVISIT AT ANOTHER TIME. SHE HAD A FRIEND AT THE BEDSIDE.. SHE ALSO WAS A LITTLE UNCOMFORTABLE. CM TO FOLLOW TO ASSIST WITH DISCHARGE PLANNING. PHYSICAL THERAPY EVAL DONE TODAY. REPORTED SUPINE TO SIT W/ MODERATE ASSIST. TOO PAINFUL FOR SIT TO STAND TODAY. PHYSICAL THERAPY TO FOLLOW AND PROGRESS. PATIENT REPORTEDLY LIVES W/ ROOMMATE. REPORTEDLY HAS NO STEPS TO ENTER HER HOME. DCPIA - Discharge Planning Initial Assessment Updated by [id number]: Bettina Kothari on 06/29/19 12:06 pm * Is the patient Alert and Oriented? Yes * How many steps to enter\exit or inside your home? none * [facility]CP [facility] * [facility] * Preadmission Environment Home with Family * ADLs Independent * Equipment Bedside Commode Nebulizer Rolling Walker Shower Chair Walker Wheelchair * List name and contact numbers for known caregivers / representatives who currently or will assist patient after discharge: FERNANDO ALANIS (EX ) [phone] * Verbal permission to speak to the caregivers and representatives has been obtained from the patient. N/A * Community resources currently utilized None * Additional services required to return to the preadmission environment? Yes * Can the patient safely return to the preadmission environment? Yes * Has this patient been hospitalized within the prior 30 days at any hospital? No External Providers [facility] Next Contact Date: Service Request Date: Service Type: Resolution: Reviewer: Comments: Coverage Notice Reviewer: [email or web address] - Bettina Kothari Notice Issued Date-Time: 06/30/2019 10:10 Notice Type: IM Discharge Notice Notice Delivered To: Patient Relationship to Patient: Order Worker Name: Delivery Method: HAND - Hand Delivered Mayte Days: Prior Verbal Notification: Recipient Understood Notice: Yes Recipient Signature: Yes Med Rec Note Co-signed by Attending: Coverage Notice Comment: Reviewer: AMY Kothari Notice Issued Date-Time: 06/30/2019 10:10 Notice Type: Patient Choice Letter Notice Delivered To: Patient Relationship to Patient: Order Worker Name: Delivery Method: HAND - Hand Delivered Mayte Days: Prior Verbal Notification: Recipient Understood Notice: Yes Recipient Signature: Yes Med Rec Note Co-signed by Attending: Coverage Notice Comment: Reviewer: AMY Kothari Notice Issued Date-Time: 07/02/2019 11:00 Notice Type: IM Discharge Notice Notice Delivered To: Patient Relationship to Patient: Order Worker Name: Delivery Method: HAND - Hand Delivered Mayte Days: Prior Verbal Notification: Recipient Understood Notice: Yes Recipient Signature: Yes Med Rec Note Co-signed by Attending: Coverage Notice Comment: Reviewer: AMY Kothari Notice Issued Date-Time: 07/02/2019 11:00 Notice Type: Patient Choice Letter Notice Delivered To: Patient Relationship to Patient: Order Worker Name: Delivery Method: HAND - Hand Delivered Mayte Days: Prior Verbal Notification: Recipient Understood Notice: Yes Recipient Signature: Yes Med Rec Note Co-signed by Attending: Coverage Notice Comment: [facility] 1 [facility] 2 [place] Last DP export: 07/02/19 10:16 Patient Name: GUNJAN BROWN Page [id number] at 1203 All edits/amendments must be made on the electronic document DICTATION DATE: 07/02/19 1203 MECHANICAL INTERN: JORDAN 07/02/19 1203 RPT#: [id number] DC DATE: STATUS: ADM IN [facility] [address] [place] [address] END OF REPORT
[2019-07-02 12:23] VITALS: BP 107/63
--- NOTE | 2019-07-02 13:45 | NUR ---
PATIENT IN BED WITH EYES CLOSED RESTING QUIETLY. NO COMPLAINTS OR SIGNS OF DISTRESS. CALL LIGHT WITHIN REACH.
[2019-07-02 15:09] VITALS: Ht 170.2 cm; Wt 79.4 kg
--- NOTE | 2019-07-02 15:18 | MORECARE ---
CASE MANAGEMENT DISCHARGE SUMMARY PATIENT: GUNJAN BROWN UNIT: [id number] ADM DATE: 06/27/19 AGE: 58 : 58 SEX: F ROOM/BED: D.2217 AUTHOR: FABIÁN,DOC PHYSICIAN: REFERRING PHYSICIAN: KARAN DOAN MD DATE OF SERVICE: 07/02/19 Discharge Plan Patient Name: GUNJAN BROWN Facility: [facility]:[place] : 1960 Planned Disposition: Inpatient Rehab Anticipated Discharge Date: Discharge Date: Expected LOS: Initial Reviewer: [id number] Initial Review Date: 06/27/2019 Generated: 07/02/19 4:18 pm Comments DCP- Discharge Planning Updated by [id number]: Bettina Kothari on 07/02/19 2:[address] PENDING AUTH FOR SKILLED, CM TO FOLLOW DCP- Discharge Planning Updated by [id number]: Bettina Kothari on 07/02/19 11:[address] MAK SENT DCP- Discharge Planning Updated by [email or web address]: Bettina Kothari on 07/02/19 10:[address] SPOKE WITH PATIENT ABOUT [facility], [facility] FOR [facility] AND [facility] I CALLED [facility] AND SENT REFERRAL FOR BOTH FACILITIES, IMM SERVED AND EXPLAINED AGAIN CM TO FOLLOW AND ASSIST DCP- Discharge Planning Updated by [id number]: Bettina Kothari on 06/30/19 1:[address] IMM SERVED AND EXPLAINED, PATIENT HAS BEEN DENIED FOR INPATIENT REHAB, AIDA FOR [facility]. SHE DOES NOT WANT TO GO TO A SKILLED FACILITY DCP- Discharge Planning Updated by [id number]: Bettina Kothari on 06/29/19 11:[address] Patient Name: GUNJAN BROWN Admission Status: ER Accout number: [id number] Admission Date: 06-27-2019 : 1960 Admission Diagnosis: Attending: KARAN DOAN Current LOS: 2 Anticipated DC Date: Planned Disposition: Inpatient Rehab Primary Insurance: [employer] CHOICE PPO MCR ADVANT Discharge Planning Comments: CM met with patient to complete initial dc planning assessment. CM educated patient on the CM role and verbal consent given by patient to complete assessment. Patient lives at home with her ex who will be her taxi driver home at discharge. She stated that he is helpful, but works so she will be alone when discharged. At discharge patient would like to go to inpatient rehab at [facility] and feels this is a safe discharge. She is a managed medicare and will need prior auth to be accepted. We have stated the process for that. Patient has a BSC, Nebulizer, rolling walker, shower chair, walker and wheelchair at home. Patient denied known discharge needs at this time. CM will continue to follow and will assist as needed with dc plans/needs. Pulp Mixer: Bettina Kothari DCP- Discharge Planning Updated by [id number]: Marinamarialuisa Wilson on 06/28/19 2:[address] CM CONSULT RECEIVED . CM WENT TO VISIT THE PATIENT. SHE ASK THAT CM REVISIT AT ANOTHER TIME. SHE HAD A FRIEND AT THE BEDSIDE.. SHE ALSO WAS A LITTLE UNCOMFORTABLE. CM TO FOLLOW TO ASSIST WITH DISCHARGE PLANNING. PHYSICAL THERAPY EVAL DONE TODAY. REPORTED SUPINE TO SIT W/ MODERATE ASSIST. TOO PAINFUL FOR SIT TO STAND TODAY. PHYSICAL THERAPY TO FOLLOW AND PROGRESS. PATIENT REPORTEDLY LIVES W/ ROOMMATE. REPORTEDLY HAS NO STEPS TO ENTER HER HOME. DCPIA - Discharge Planning Initial Assessment Updated by [email or web address]: Bettina Kothari on 06/29/19 12:06 pm * Is the patient Alert and Oriented? Yes * How many steps to enter\exit or inside your home? none * [facility]CP [facility] * Pharm[facility] * Preadmission Environment Home with Family * ADLs Independent * Equipment Bedside Commode Nebulizer Rolling Walker Shower Chair Walker Wheelchair * List name and contact numbers for known caregivers / representatives who currently or will assist patient after discharge: FERNANDO ALANIS (EX ) [phone] * Verbal permission to speak to the caregivers and representatives has been obtained from the patient. N/A * Community resources currently utilized None * Additional services required to return to the preadmission environment? Yes * Can the patient safely return to the preadmission environment? Yes * Has this patient been hospitalized within the prior 30 days at any hospital? No Coverage Notice Reviewer: [id number] - Bettina Kothari Notice Issued Date-Time: 06/30/2019 10:10 Notice Type: IM Discharge Notice Notice Delivered To: Patient Relationship to Patient: Mortgage Loan Originator Name: Delivery Method: HAND - Hand Delivered Mayte Days: Prior Verbal Notification: Recipient Understood Notice: Yes Recipient Signature: Yes Med Rec Note Co-signed by Attending: Coverage Notice Comment: Reviewer: AMY Kothari Notice Issued Date-Time: 06/30/2019 10:10 Notice Type: Patient Choice Letter Notice Delivered To: Patient Relationship to Patient: Mortgage Loan Originator Name: Delivery Method: HAND - Hand Delivered Mayte Days: Prior Verbal Notification: Recipient Understood Notice: Yes Recipient Signature: Yes Med Rec Note Co-signed by Attending: Coverage Notice Comment: Reviewer: AMY Kothari Notice Issued Date-Time: 07/02/2019 11:00 Notice Type: IM Discharge Notice Notice Delivered To: Patient Relationship to Patient: Mortgage Loan Originator Name: Delivery Method: HAND - Hand Delivered Mayte Days: Prior Verbal Notification: Recipient Understood Notice: Yes Recipient Signature: Yes Med Rec Note Co-signed by Attending: Coverage Notice Comment: Reviewer: AMY Kothari Notice Issued Date-Time: 07/02/2019 11:00 Notice Type: Patient Choice Letter Notice Delivered To: Patient Relationship to Patient: Mortgage Loan Originator Name: Delivery Method: HAND - Hand Delivered Mayte Days: Prior Verbal Notification: Recipient Understood Notice: Yes Recipient Signature: Yes Med Rec Note Co-signed by Attending: Coverage Notice Comment: [facility] Last DP export: 07/02/19 11:03 Patient Name: GUNJAN BROWN Page [phone] at 1518 All edits/amendments must be made on the electronic document DICTATION DATE: 07/02/191517 MANAGER BENCH: JORDAN 07/02/191517 RPT#: [id number] CT DATE: STATUS: ADM IN [facility] [address] [place] [address] END OF REPORT
--- NOTE | 2019-07-02 16:00 | NUR ---
DRESSING TO RIGHT LE CHANGED. MILKED SKIN AROUND PIN SITES. CLEAND EACH WITH PEROXIDE ORDERED. CLEAN DRESSINGS REAPPLIED. WRAPPED WITH KERLIX AND LAVELLE. PATIENT TOLERATED WITH SMALL AMOUNT OF PAIN. IV INTACT. NO COMPLAINTS. CALL LIGHT WITHIN REACH.
[2019-07-02 17:01] VITALS: BP 111/62
--- NOTE | 2019-07-02 18:47 | NUR ---
PATIENT IN BED WITH IV INTACT. NO COMPLAINTS OR SIGNS OF DISTRESS. CALL LIGHT WITHIN REACH.
--- NOTE | 2019-07-02 19:00 | NUR ---
BEDSIDE REPORT RECEIVED AND CARE OF PT ASSUMED. PT LYING IN LOW BLANCO'S POSITION WATCHING TV. NO IV SITED. HAGER CATHETER DRAINING TO GRAVITY WITH YELLOW URINE IN COLLECTION BAG. WILL MONITOR FOR NEEDS.
--- NOTE | 2019-07-02 20:31 | NUR ---
HS MEDICATIONS GIVEN TO INCLUDE NORCO 10 PO PER REQUEST FOR PAIN, PER PRN ORDER. GAVE COFFEE PER REQUEST FOR HS SNACK.
[2019-07-02 21:46] VITALS: BP 106/69
[2019-07-03 01:27] VITALS: BP 124/70
[2019-07-03 05:26] LABS: BASOPHILS 0.5 % (0-2); EOSINOPHILS 12.9 % (0-7); HEMATOCRIT 31.7 % (36.0-48.0); HEMOGLOBIN 9.9 g/dL (12-16); IMMATURE GRANULOCYTES 0.2 % (0-5); LYMPHOCYTES 31.8 % (15-50); MCH 29.4 pg (26.0-34.0); MCHC 31.2 g/dL (31.0-37.0); MCV 94.1 fL (80.0-100.0); MEAN PLATELET VOLUME 9.4 fL (7.4-10.4); MONOCYTES 12.3 % (2-11); NEUTROPHILS 42.3 % (40-80); PLATELET COUNT 295 10x3/uL (130-400); RBC 3.37 10x6/uL (4.00-5.40); RDW 22.3 % (11.5-14.5); WBC 6.4 10x3/uL (4.8-10.8)
[2019-07-03 05:29] VITALS: BP 116/63
[2019-07-03 05:52] LABS: ALBUMIN 2.4 g/dL (3.4-5.0); ALKALINE PHOSPHATASE 111 U/L (46-116); ALT (SGPT) 13 U/L (10-68); BILIRUBIN - TOTAL 0.19 mg/dL (0.2-1.3); CALC OSMOLALITY 289 mosm/kg (275-300); CALCIUM 8.8 mg/dL (8.5-10.1); CARBON DIOXIDE 33.4 mmol/L (21.0-32.0); CHLORIDE - SERUM 107 mmol/L (98-107); CREATININE - SERUM 0.7 mg/dL (0.6-1.3); GLUCOSE 115 mg/dL (74-106); PROTEIN - SERUM 6.2 g/dL (6.4-8.2); SODIUM 145 mmol/L (136-145); UREA NITROGEN 13 mg/dL (7-18); eGFR NON AFRICAN AMERICAN > 90 mL/min (90-120)
[2019-07-03 05:58] LABS: POTASSIUM - SERUM 4.4 mmol/L (3.5-5.1)
--- NOTE | 2019-07-03 07:30 | NUR ---
BEDSIDE REPORT RECIEVED ASSUMED CARE. PATIENT IN BED WITH NO COMPLAINTS AT THIS TIME. EXTERNAL FIXATION INTACT. FAMILY AT BEDSIDE. CALL LIGHT WITHIN REACH.
--- NOTE | 2019-07-03 07:55 | MORECARE ---
CASE MANAGEMENT DISCHARGE SUMMARY PATIENT: GUNJAN BROWN UNIT: [id number] ADM DATE: 06/27/19 AGE: 58 : 58 SEX: F ROOM/BED: D.2217 AUTHOR: FABIÁN,DOC PHYSICIAN: REFERRING PHYSICIAN: KARAN DOAN MD DATE OF SERVICE: 07/03/19 Discharge Plan Patient Name: GUNJAN BROWN Facility: [facility]:[place] : 1960 Planned Disposition: Inpatient Rehab Anticipated Discharge Date: Discharge Date: Expected LOS: Initial Reviewer: [email or web address] Initial Review Date: 06/27/2019 Generated: 07/03/19 8:54 am Comments DCP- Discharge Planning Updated by [id number]: Bettina Kothari on 07/03/19 6:[address] [facility]abell with [facility] called back and stated that they could not accept her. Will wait for [facility] and rehab DCP- Discharge Planning Updated by [id number]: Bettina Kothari on 07/02/19 2:[address] PENDING AUTH FOR SKILLED, CM TO FOLLOW DCP- Discharge Planning Updated by [id number]: Bettina Kothari on 07/02/19 11:[address] MAK SENT DCP- Discharge Planning Updated by [id number]: Bettina Kothari on 07/02/19 10:[address] SPOKE WITH PATIENT ABOUT LONG TERM, AIDA FOR [facility] AND [place] I CALLED [facility] AND SENT REFERRAL FOR BOTH FACILITIES, IMM SERVED AND EXPLAINED AGAIN CM TO FOLLOW AND ASSIST DCP- Discharge Planning Updated by [email or web address]: Bettina Kothari on 06/30/19 1:[address] IMM SERVED AND EXPLAINED, PATIENT HAS BEEN DENIED FOR INPATIENT REHAB, AIDA FOR [facility]. SHE DOES NOT WANT TO GO TO A SKILLED FACILITY DCP- Discharge Planning Updated by [id number]: Bettina Kothari on 06/29/19 11:[address] Patient Name: GUNJAN BROWN Admission Status: ER Accout number: [id number] Admission Date: 06-27-2019 : 1960 Admission Diagnosis: Attending: KARAN DOAN Current LOS: 2 Anticipated DC Date: Planned Disposition: Inpatient Rehab Primary Insurance: [employer] CHOICE PPO MCR ADVANT Discharge Planning Comments: CM met with patient to complete initial dc planning assessment. CM educated patient on the CM role and verbal consent given by patient to complete assessment. 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 She stated that he is helpful, but works so she will be alone when discharged. At discharge patient would like to go to inpatient rehab at [facility] and feels this is a safe discharge. She is a managed medicare and will need prior auth to be accepted. We have stated the process for that. Patient has a BSC, Nebulizer, rolling walker, shower chair, walker and wheelchair at home. Patient denied known discharge needs at this time. CM will continue to follow and will assist as needed with dc plans/needs. Edge Gluer: Bettina Kothari DCP- Discharge Planning Updated by [id number]: Marina Wilson on 06/28/19 2:[address] CM CONSULT RECEIVED . CM WENT TO VISIT THE PATIENT. SHE ASK THAT CM REVISIT AT ANOTHER TIME. SHE HAD A FRIEND AT THE BEDSIDE.. SHE ALSO WAS A LITTLE UNCOMFORTABLE. CM TO FOLLOW TO ASSIST WITH DISCHARGE PLANNING. PHYSICAL THERAPY EVAL DONE TODAY. REPORTED SUPINE TO SIT W/ MODERATE ASSIST. TOO PAINFUL FOR SIT TO STAND TODAY. PHYSICAL THERAPY TO FOLLOW AND PROGRESS. PATIENT REPORTEDLY LIVES W/ ROOMMATE. REPORTEDLY HAS NO STEPS TO ENTER HER HOME. DCPIA - Discharge Planning Initial Assessment Updated by [id number]: Bettina Kothari on 06/29/19 12:06 pm * Is the patient Alert and Oriented? Yes * How many steps to enter\exit or inside your home? none * [facility] * [facility] * Preadmission Environment Home with Family * ADLs Independent * Equipment Bedside Commode Nebulizer Rolling Walker Shower Chair Walker Wheelchair * List name and contact numbers for known caregivers / representatives who currently or will assist patient after discharge: FERNANDO ALANIS (EX ) [phone] * Verbal permission to speak to the caregivers and representatives has been obtained from the patient. N/A * Community resources currently utilized None * Additional services required to return to the preadmission environment? Yes * Can the patient safely return to the preadmission environment? Yes * Has this patient been hospitalized within the prior 30 days at any hospital? No Coverage Notice Reviewer: [id number] Gary Kothari Notice Issued Date-Time: 06/30/2019 10:10 Notice Type: IM Discharge Notice Notice Delivered To: Patient Relationship to Patient: Crop Insurance Claims Adjuster Name: Delivery Method: HAND - Hand Delivered Mayte Days: Prior Verbal Notification: Recipient Understood Notice: Yes Recipient Signature: Yes Med Rec Note Co-signed by Attending: Coverage Notice Comment: Reviewer: AMY Kothari Notice Issued Date-Time: 06/30/2019 10:10 Notice Type: Patient Choice Letter Notice Delivered To: Patient Relationship to Patient: Crop Insurance Claims Adjuster Name: Delivery Method: HAND - Hand Delivered Mayte Days: Prior Verbal Notification: Recipient Understood Notice: Yes Recipient Signature: Yes Med Rec Note Co-signed by Attending: Coverage Notice Comment: Reviewer: AMY Kothari Notice Issued Date-Time: 07/02/2019 11:00 Notice Type: IM Discharge Notice Notice Delivered To: Patient Relationship to Patient: Crop Insurance Claims Adjuster Name: Delivery Method: HAND - Hand Delivered Mayte Days: Prior Verbal Notification: Recipient Understood Notice: Yes Recipient Signature: Yes Med Rec Note Co-signed by Attending: Coverage Notice Comment: Reviewer: AMY Kothari Notice Issued Date-Time: 07/02/2019 11:00 Notice Type: Patient Choice Letter Notice Delivered To: Patient Relationship to Patient: Crop Insurance Claims Adjuster Name: Delivery Method: HAND - Hand Delivered Mayte Days: Prior Verbal Notification: Recipient Understood Notice: Yes Recipient Signature: Yes Med Rec Note Co-signed by Attending: Coverage Notice Comment: [facility] [place] Last DP export: 07/02/19 2:18 Patient Name: GUNJAN BROWN Page [id number] at 0755 All edits/amendments must be made on the electronic document DICTATION DATE: 07/03/19 0754 BOX BRANDER: JORDAN 07/03/19 0754 RPT#: [id number] DC DATE: STATUS: ADM IN [facility] [id number] [place] [address] END OF REPORT
[2019-07-03 08:18] VITALS: BP 110/65
--- NOTE | 2019-07-03 10:23 | NUR ---
OT NOTE: PT SITTING UP IN BED. FINISHED APPLYING MAKE UP. REPORTS CONTINUED PAIN AND NEW PAIN IN LATERAL SIDE OF L LE. STATES THAT SHE JUST HAD DOPPLER PERFORMED. BED MOB WITH SPV; SIT TO STAND WITH CGA. ATTEMPTED TO TURN TO SIDE WITH WALKER ( IF TRANSFERRING TO COMMODE) HOWEVER, PT STATED THAT HER LEG WAS HURTING TOO BAD AND HER ARMS COULD NOT SUPPORT HER. EDUCATED PT ON EXS. WILL PROVIDED THERABAND EXS FOR HER TO PERFORM IN BED. PT ABLE TO SIT UP ON EOB TO PERFORM UE/LE EXS. ABLE TO MITCH AND DOFF GOWN WITH SET UP. INSTRUCTED PT TO SIT UP ON EOB THROUGHOUT THE DAY ( I.E MEAL TIME), HOWEVER, SHE STATED THAT EXT FIXATOR CONTINUED TO GET CAUGHT IN SHEETS WHEN SHE DID THIS. WRAPPED WITH GAUZE AND TAPE. ROSALINDA BLEVINS, OTR/L
[2019-07-03 12:21] VITALS: BP 107/68
--- NOTE | 2019-07-03 13:10 | NUR ---
PATIENT RECIEVED PAIN MEDS AT THIS TIME. DRESSING TO FOOT CDI. STATED SHOULDER HURTS AND WANTS BENGAY. NOTIFIED JOSE. CALL LIGHT WITHIN REACH.
--- NOTE | 2019-07-03 15:26 | MORECARE ---
CASE MANAGEMENT DISCHARGE SUMMARY PATIENT: GUNJAN BROWN UNIT: [id number] ADM DATE: 06/27/19 AGE: 58 : 58 SEX: F ROOM/BED: D.2217 AUTHOR: FABIÁN,DOC PHYSICIAN: REFERRING PHYSICIAN: KARAN DOAN MD DATE OF SERVICE: 07/03/19 Discharge Plan Patient Name: GUNJAN BROWN [facility] [facility] 1960 Planned Disposition: Inpatient Rehab Anticipated Discharge Date: Discharge Date: Expected LOS: Initial Reviewer: [id number] Initial Review Date: 06/27/2019 Generated: 07/03/19 4:26 pm Comments DCP- Discharge Planning Updated by [email or web address]: Bettina Kothari on 07/03/19 2:[address] [facility] came to assess patient and stated that she is good for [facility] and rehab, just waiting on auth from her insurance. DCP- Discharge Planning Updated by [id number]: Bettina Kothari on 07/03/19 6:[address] [facility] back and stated that they could not accept her. Will wait for [facility] and rehab DCP- Discharge Planning Updated by [id number]: Bettina Kothari on 07/02/19 2:[address] PENDING AUTH FOR SKILLED, CM TO FOLLOW DCP- Discharge Planning Updated by [id number]: Bettina Kothari on 07/02/19 11:[address] MAK SENT DCP- Discharge Planning Updated by [id number]: Bettina Kothari on 07/02/19 10:[address] SPOKE WITH PATIENT ABOUT [facility], [facility] [place] I CALLED [facility] AND SENT REFERRAL FOR BOTH FACILITIES, IMM SERVED AND EXPLAINED AGAIN CM TO FOLLOW AND ASSIST DCP- Discharge Planning Updated by [email or web address]: Bettina Kothari on 06/30/19 1:[address] IMM SERVED AND EXPLAINED, PATIENT HAS BEEN DENIED FOR INPATIENT REHAB, AIDA FOR [facility]. SHE DOES NOT WANT TO GO TO A SKILLED FACILITY DCP- Discharge Planning Updated by [id number]: Bettina Kothari on 06/29/19 11:[address] Patient Name: GUNJAN BROWN Admission Status: ER Accout number: [id number] Admission Date: 06-27-2019 : 1960 Admission Diagnosis: Attending: KARAN DOAN Current LOS: 2 Anticipated DC Date: Planned Disposition: Inpatient Rehab Primary Insurance: [employer] CHOICE PPO [facility] Discharge Planning Comments: CM met with patient to complete initial dc planning assessment. CM educated patient on the CM role and verbal consent given by patient to complete assessment. Patient lives at home with her ex who will be her drop hammer pile driver operator home at discharge. She stated that he is helpful, but works so she will be alone when discharged. At discharge patient would like to go to inpatient rehab at [facility] and feels this is a safe discharge. She is a managed medicare and will need prior auth to be accepted. We have stated the process for that. Patient has a BSC, Nebulizer, rolling walker, shower chair, walker and wheelchair at home. Patient denied known discharge needs at this time. CM will continue to follow and will assist as needed with dc plans/needs. Multimedia Teacher: Bettina Kothari DCP- Discharge Planning Updated by [id number]: Marina Wilson on 06/28/19 2:[address] CM CONSULT RECEIVED . CM WENT TO VISIT THE PATIENT. SHE ASK THAT CM REVISIT AT ANOTHER TIME. SHE HAD A FRIEND AT THE BEDSIDE.. SHE ALSO WAS A LITTLE UNCOMFORTABLE. CM TO FOLLOW TO ASSIST WITH DISCHARGE PLANNING. PHYSICAL THERAPY EVAL DONE TODAY. REPORTED SUPINE TO SIT W/ MODERATE ASSIST. TOO PAINFUL FOR SIT TO STAND TODAY. PHYSICAL THERAPY TO FOLLOW AND PROGRESS. PATIENT REPORTEDLY LIVES W/ ROOMMATE. REPORTEDLY HAS NO STEPS TO ENTER HER HOME. DCPIA - Discharge Planning Initial Assessment Updated by [id number]: Bettina Kothari on 06/29/19 12:06 pm * Is the patient Alert and Oriented? Yes * How many steps to enter\exit or inside your home? none * [facility] * [facility] * Preadmission Environment Home with Family * ADLs Independent * Equipment Bedside Commode Nebulizer Rolling Walker Shower Chair Walker Wheelchair * List name and contact numbers for known caregivers / representatives who currently or will assist patient after discharge: FERNANDO ALANIS (EX ) [phone] * Verbal permission to speak to the caregivers and representatives has been obtained from the patient. N/A * Community resources currently utilized None * Additional services required to return to the preadmission environment? Yes * Can the patient safely return to the preadmission environment? Yes * Has this patient been hospitalized within the prior 30 days at any hospital? No Coverage Notice Reviewer: AMY Kothari Notice Issued Date-Time: 06/30/2019 10:10 Notice Type: IM Discharge Notice Notice Delivered To: Patient Relationship to Patient: Engagement Liaison Name: Delivery Method: HAND - Hand Delivered Mayte Days: Prior Verbal Notification: Recipient Understood Notice: Yes Recipient Signature: Yes Med Rec Note Co-signed by Attending: Coverage Notice Comment: Reviewer: AMY Kothari Notice Issued Date-Time: 06/30/2019 10:10 Notice Type: Patient Choice Letter Notice Delivered To: Patient Relationship to Patient: Engagement Liaison Name: Delivery Method: HAND - Hand Delivered Mayte Days: Prior Verbal Notification: Recipient Understood Notice: Yes Recipient Signature: Yes Med Rec Note Co-signed by Attending: Coverage Notice Comment: Reviewer: AMY Kothari Notice Issued Date-Time: 07/02/2019 11:00 Notice Type: IM Discharge Notice Notice Delivered To: Patient Relationship to Patient: Engagement Liaison Name: Delivery Method: HAND - Hand Delivered Mayte Days: Prior Verbal Notification: Recipient Understood Notice: Yes Recipient Signature: Yes Med Rec Note Co-signed by Attending: Coverage Notice Comment: Reviewer: AMY Kothari Notice Issued Date-Time: 07/02/2019 11:00 Notice Type: Patient Choice Letter Notice Delivered To: Patient Relationship to Patient: Engagement Liaison Name: Delivery Method: HAND - Hand Delivered Mayte Days: Prior Verbal Notification: Recipient Understood Notice: Yes Recipient Signature: Yes Med Rec Note Co-signed by Attending: Coverage Notice Comment: [facility] 2 [place] Last DP export: 07/03/19 6:54 Patient Name: GUNJAN BROWN Page [id number] at 1526 All edits/amendments must be made on the electronic document DICTATION DATE: 07/03/196 SHOE PLANNER: JORDAN 07/03/19 1526 RPT#: [id number] DC DATE: STATUS: ADM IN [facility] [address] [place] [address] END OF REPORT
--- NOTE | 2019-07-03 16:02 | NUR ---
OT NOTE: PT COMPLETED RUE STRENGTHENING WITH ALESHA. THANK YOU, CORINA MCNULTY
--- NOTE | 2019-07-03 16:45 | NUR ---
PATIENT DRESSING TO LLE CHANGED ORDERED. SWELLING TO FOOT STILL NOTED. ELEVATED HIGHER ON PILLOW WITH HEEL FLOATING. PATIENT TOLERATED WITH SMALL AMOUNT OF PAIN. HAGER CATHETER REMOVED PER PHYSICIAN ORDER. CALL LIGHT WITHIN REACH.
[2019-07-03 17:39] VITALS: BP 105/58
--- NOTE | 2019-07-03 18:55 | NUR ---
PATIENT IN BED WITH EYES CLOSED. RESTING QUIETLY AT THIS TIME. NO COMPLAINTS OR SIGNS OF DISTRESS. CALL LIGHT WITHIN REACH.
--- NOTE | 2019-07-03 19:00 | NUR ---
BEDSIDE REPORT RECEIVED AND CARE OF PT ASSUMED. PT LYIGN IN SUPINE POSITION WATCHING TV. NO IV PLACED. LEFT ANKLE WITH EXTERNAL FIXATORS IN PLACE, ELEVATED ON PILLOWS. WILL MONITOR FOR NEEDS.
[2019-07-03 20:00] VITALS: BP 104/60
--- NOTE | 2019-07-03 21:40 | NUR ---
HS MEDICATIONS GIVEN TO INCLUDE NORCO PO FOR PAIN, PER REQUEST. WILL CONTINUE TO MONITOR FOR NEEDS.
--- NOTE | 2019-07-03 21:50 | NUR ---
GAVE ICE PACK FOR C/O ARM PAIN, PER REQUEST.
[2019-07-04 04:00] VITALS: BP 114/60
[2019-07-04 06:37] LABS: BASOPHILS 0.3 % (0-2); EOSINOPHILS 11.4 % (0-7); HEMATOCRIT 34.3 % (36.0-48.0); HEMOGLOBIN 10.5 g/dL (12-16); IMMATURE GRANULOCYTES 0.2 % (0-5); LYMPHOCYTES 36.5 % (15-50); MCH 29.1 pg (26.0-34.0); MCHC 30.6 g/dL (31.0-37.0); MEAN PLATELET VOLUME 8.8 fL (7.4-10.4); MONOCYTES 8.9 % (2-11); NEUTROPHILS 42.7 % (40-80); PLATELET COUNT 288 10x3/uL (130-400); RBC 3.61 10x6/uL (4.00-5.40); RDW 21.1 % (11.5-14.5); WBC 5.9 10x3/uL (4.8-10.8)
[2019-07-04 06:47] LABS: CALC OSMOLALITY 288 mosm/kg (275-300); CALCIUM 9.1 mg/dL (8.5-10.1); CARBON DIOXIDE 33.4 mmol/L (21.0-32.0); CHLORIDE - SERUM 104 mmol/L (98-107); CREATININE - SERUM 0.8 mg/dL (0.6-1.3); GLUCOSE 124 mg/dL (74-106); SODIUM 144 mmol/L (136-145); UREA NITROGEN 14 mg/dL (7-18); eGFR NON AFRICAN AMERICAN 78 mL/min (90-120)
[2019-07-04 06:55] LABS: POTASSIUM - SERUM 3.3 mmol/L (3.5-5.1)
--- NOTE | 2019-07-04 08:00 | NUR ---
ASSESSMENT PER FLOW SHEET. PT IS WITHOUT DISTRESS.MONITOR FOR NEEDS.FALL PREVENTION IN PLACE.
--- NOTE | 2019-07-04 16:15 | NUR ---
HAS HAD BATH AND SHE IS PUTTING ON MAKE UP.MONITOR FOR NEEDS
[2019-07-04 18:07] VITALS: BP 104/63
--- NOTE | 2019-07-04 18:24 | NUR ---
REMAINS WITHOUT NEEDS,WITHOUT CHANGE.CONT PLAN OF CARE
--- NOTE | 2019-07-04 19:00 | NUR ---
BEDSIDE REPORT RECEIVED. PT MOVED TO DIFFERENT ROOM DUE TO PLUMBING ISSUES. NO IV. DRESSING ON LEFT LOWER LEG CLEAN AND DRY. WILL MONITOR FOR NEEDS.
[2019-07-04 20:00] VITALS: BP 105/65
--- NOTE | 2019-07-04 21:23 | NUR ---
HS MEDICATIONS GIVEN. WILL CONTINUE TO MONITOR FOR NEEDS.
[2019-07-05 04:00] VITALS: BP 95/54
[2019-07-05 06:12] LABS: CALC OSMOLALITY 284 mosm/kg (275-300); CALCIUM 9.4 mg/dL (8.5-10.1); CARBON DIOXIDE 30.2 mmol/L (21.0-32.0); CHLORIDE - SERUM 104 mmol/L (98-107); CREATININE - SERUM 0.7 mg/dL (0.6-1.3); GLUCOSE 132 mg/dL (74-106); SODIUM 142 mmol/L (136-145); UREA NITROGEN 13 mg/dL (7-18); eGFR NON AFRICAN AMERICAN > 90 mL/min (90-120)
[2019-07-05 06:16] LABS: POTASSIUM - SERUM 4.2 mmol/L (3.5-5.1)
[2019-07-05 06:39] LABS: BASOPHILS 0.4 % (0-2); EOSINOPHILS 12.2 % (0-7); HEMATOCRIT 29.7 % (36.0-48.0); HEMOGLOBIN 9.4 g/dL (12-16); IMMATURE GRANULOCYTES 0.2 % (0-5); MCH 29.7 pg (26.0-34.0); MCHC 31.6 g/dL (31.0-37.0); MCV 93.7 fL (80.0-100.0); MEAN PLATELET VOLUME 8.3 fL (7.4-10.4); MONOCYTES 12.2 % (2-11); PLATELET COUNT 268 10x3/uL (130-400); RBC 3.17 10x6/uL (4.00-5.40); RDW 21.3 % (11.5-14.5); WBC 5.2 10x3/uL (4.8-10.8)
[2019-07-05 07:59] VITALS: BP 93/58
--- NOTE | 2019-07-05 08:00 | NUR ---
ASSESSMENT PER FLOW SHEET. PT IS WITHOUT DISTRESS.MONITOR FOR NEEDS.CALL LIGHT IN REACH.
[2019-07-05 14:17] VITALS: BP 132/71
--- NOTE | 2019-07-05 19:47 | NUR ---
REMAINS WITHOUT CHNAGE.CONT PLAN OF CARE
[2019-07-05 20:00] VITALS: BP 118/73
--- NOTE | 2019-07-05 22:00 | NUR ---
A/O WITH NO SIGNS OF ACUTE DISTRESS. VOICES CONCERNS ABOUT THE FREQUENCY IN WHICH SHE TAKES BUMEX. WILL PASS OF TO THE DAY SHIFT NURSE THAT PT WOULD LIKE TO TAKE BUMEX X2 DAILY FOR HER SWOLLEN LEFT LEG. DRESSING CHANGE TO THE LEFT FOOT. FOUR PINS WITH INCISION NOTED WITH NO REDNESS AT SITE. DENIES PAIN OR OTHER NEEDS AT THIS TIME. CONTINUE WITH PLAN OF CARE.
[2019-07-06 04:00] VITALS: BP 109/61
[2019-07-06 06:02] LABS: CALC OSMOLALITY 289 mosm/kg (275-300); CALCIUM 9.2 mg/dL (8.5-10.1); CARBON DIOXIDE 34.5 mmol/L (21.0-32.0); CHLORIDE - SERUM 106 mmol/L (98-107); CREATININE - SERUM 0.8 mg/dL (0.6-1.3); GLUCOSE 93 mg/dL (74-106); SODIUM 145 mmol/L (136-145); UREA NITROGEN 16 mg/dL (7-18); eGFR NON AFRICAN AMERICAN 78 mL/min (90-120)
[2019-07-06 06:03] LABS: POTASSIUM - SERUM 3.5 mmol/L (3.5-5.1)
[2019-07-06 06:13] LABS: BASOPHILS 0.2 % (0-2); EOSINOPHILS 11.6 % (0-7); HEMATOCRIT 31.4 % (36.0-48.0); HEMOGLOBIN 9.8 g/dL (12-16); IMMATURE GRANULOCYTES 0.2 % (0-5); LYMPHOCYTES 28.6 % (15-50); MCH 29.4 pg (26.0-34.0); MCHC 31.2 g/dL (31.0-37.0); MCV 94.3 fL (80.0-100.0); MEAN PLATELET VOLUME 8.9 fL (7.4-10.4); MONOCYTES 12.6 % (2-11); NEUTROPHILS 46.8 % (40-80); PLATELET COUNT 307 10x3/uL (130-400); RBC 3.33 10x6/uL (4.00-5.40); RDW 21.1 % (11.5-14.5); WBC 5.7 10x3/uL (4.8-10.8)
[2019-07-06 08:36] VITALS: BP 111/54
--- NOTE | 2019-07-06 08:45 | NUR ---
PATIENT SITTING UP IN BED EATING WITH NO COMPLAINTS OR SIGNS OF DISTRESS. CALL LIGHT WITHIN REACH.
--- NOTE | 2019-07-06 10:45 | MORECARE ---
CASE MANAGEMENT DISCHARGE SUMMARY PATIENT: GUNJAN BROWN UNIT: [id number] ADM DATE: 06/27/19 AGE: 58 : 58 SEX: F ROOM/BED: D.8449 AUTHOR: FABIÁN,DOC PHYSICIAN: REFERRING PHYSICIAN: KARAN DOAN MD DATE OF SERVICE: 07/06/19 Discharge Plan Patient Name: GUNJAN BROWN Facility: [facility]:[place] : 1960 Planned Disposition: Inpatient Rehab Anticipated Discharge Date: Discharge Date: Expected LOS: Initial Reviewer: [id number] Initial Review Date: 06/27/2019 Generated: 07/06/19 11:45 am Comments DCP- Discharge Planning Updated by [id number]: Bettina Kothari on 07/06/19 9:[address] Romina called back and she stated that they are still waiting on Auth DCP- Discharge Planning Updated by [id number]: Bettina Kothari on 07/06/19 9:[address] Called Romina with [facility] to get update on auth, left message DCP- Discharge Planning Updated by [id number]: Bettina Kothari on 07/03/19 2:[address] Romina came to assess patient and stated that she is good for [facility], just waiting on auth from her insurance. DCP- Discharge Planning Updated by [email or web address]: Bettina Kothari on 07/03/19 6:[address] Isabell with [facility] called back and stated that they could not accept her. [facility] DCP- Discharge Planning Updated by [id number]: Bettina Kothari on 07/02/19 2:[address] PENDING AUTH FOR SKILLED, CM TO FOLLOW DCP- Discharge Planning Updated by [id number]: Bettina Kothari on 07/02/19 11:[address] MAK SENT DCP- Discharge Planning Updated by [email or web address]: Bettina Kothari on 07/02/19 10:[address] SPOKE WITH PATIENT ABOUT FDC, AIDA FOR [facility] AND [place] I CALLED ROMINA AND SENT REFERRAL FOR BOTH FACILITIES, IMM SERVED AND EXPLAINED AGAIN CM TO FOLLOW AND ASSIST DCP- Discharge Planning Updated by [id number]: Bettina Kothari on 06/30/19 1:[address] IMM SERVED AND EXPLAINED, PATIENT HAS BEEN DENIED FOR INPATIENT REHAB, AIDA FOR [facility]. SHE DOES NOT WANT TO GO TO A SKILLED FACILITY DCP- Discharge Planning Updated by [id number]: Bettina Kothari on 06/29/19 11:[address] Patient Name: GUNJAN BROWN Admission Status: ER Accout number: [id number] Admission Date: 06-27-2019 : 1960 Admission Diagnosis: Attending: KARAN DOAN Current LOS: 2 Anticipated DC Date: Planned Disposition: Inpatient Rehab Primary Insurance: [employer] CHO[employer] PPO MCR ADVANT Discharge Planning Comments: CM met with patient to complete initial dc planning assessment. CM educated patient on the CM role and verbal consent given by patient to complete assessment. 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 She stated that he is helpful, but works so she will be alone when discharged. At discharge patient would like to go to inpatient rehab at [facility] and feels this is a safe discharge. She is a managed medicare and will need prior auth to be accepted. We have stated the process for that. Patient has a BSC, Nebulizer, rolling walker, shower chair, walker and wheelchair at home. Patient denied known discharge needs at this time. CM will continue to follow and will assist as needed with dc plans/needs. Marketing Associate: Bettina Kothari DCP- Discharge Planning Updated by [email or web address]: Marina Wilson on 06/28/19 2:[address] CM CONSULT RECEIVED . CM WENT TO VISIT THE PATIENT. SHE ASK THAT CM REVISIT AT ANOTHER TIME. SHE HAD A FRIEND AT THE BEDSIDE.. SHE ALSO WAS A LITTLE UNCOMFORTABLE. CM TO FOLLOW TO ASSIST WITH DISCHARGE PLANNING. PHYSICAL THERAPY EVAL DONE TODAY. REPORTED SUPINE TO SIT W/ MODERATE ASSIST. TOO PAINFUL FOR SIT TO STAND TODAY. PHYSICAL THERAPY TO FOLLOW AND PROGRESS. PATIENT REPORTEDLY LIVES W/ ROOMMATE. REPORTEDLY HAS NO STEPS TO ENTER HER HOME. DCPIA - Discharge Planning Initial Assessment Updated by [email or web address]: Bettina Kothari on 06/29/19 12:06 pm * Is the patient Alert and Oriented? Yes * How many steps to enter\exit or inside your home? none * [facility] * [facility] * Preadmission Environment Home with Family * ADLs Independent * Equipment Bedside Commode Nebulizer Rolling Walker Shower Chair Walker Wheelchair * List name and contact numbers for known caregivers / representatives who currently or will assist patient after discharge: FERNANDO ALANIS (EX ) [phone] * Verbal permission to speak to the caregivers and representatives has been obtained from the patient. N/A * Community resources currently utilized None * Additional services required to return to the preadmission environment? Yes * Can the patient safely return to the preadmission environment? Yes * Has this patient been hospitalized within the prior 30 days at any hospital? No Coverage Notice Reviewer: [id number] Kothari Notice Issued Date-Time: 06/30/2019 10:10 Notice Type: IM Discharge Notice Notice Delivered To: Patient Relationship to Patient: Magistrate Name: Delivery Method: HAND - Hand Delivered Mayte Days: Prior Verbal Notification: Recipient Understood Notice: Yes Recipient Signature: Yes Med Rec Note Co-signed by Attending: Coverage Notice Comment: Reviewer: AMY Kothari Notice Issued Date-Time: 06/30/2019 10:10 Notice Type: Patient Choice Letter Notice Delivered To: Patient Relationship to Patient: Magistrate Name: Delivery Method: HAND - Hand Delivered Mayte Days: Prior Verbal Notification: Recipient Understood Notice: Yes Recipient Signature: Yes Med Rec Note Co-signed by Attending: Coverage Notice Comment: Reviewer: AMY Kothari Notice Issued Date-Time: 07/02/2019 11:00 Notice Type: IM Discharge Notice Notice Delivered To: Patient Relationship to Patient: Magistrate Name: Delivery Method: HAND - Hand Delivered Mayte Days: Prior Verbal Notification: Recipient Understood Notice: Yes Recipient Signature: Yes Med Rec Note Co-signed by Attending: Coverage Notice Comment: Reviewer: AMY Kothari Notice Issued Date-Time: 07/02/2019 11:00 Notice Type: Patient Choice Letter Notice Delivered To: Patient Relationship to Patient: Magistrate Name: Delivery Method: HAND - Hand Delivered Mayte Days: Prior Verbal Notification: Recipient Understood Notice: Yes Recipient Signature: Yes Med Rec Note Co-signed by Attending: Coverage Notice Comment: AIDA 1 [facility] 2 [place] Last DP export: 07/03/19 2:26 Patient Name: GUNJAN BROWN Page [id number] at 1045 All edits/amendments must be made on the electronic document DICTATION DATE: 07/06/191043 ENGINEERING LABORATORY TECHNICIAN: JORDAN 07/06/194 RPT#: [id number] DC DATE: STATUS: ADM IN [facility] [address] [place] [address] END OF REPORT
[2019-07-06 12:38] VITALS: BP 94/58
--- NOTE | 2019-07-06 12:40 | MORECARE ---
CASE MANAGEMENT DISCHARGE SUMMARY PATIENT: GUNJAN BROWN UNIT: [id number] ADM DATE: 06/27/19 AGE: 58 : 58 SEX: F ROOM/BED: D.5609 AUTHOR: FABIÁNDOC PHYSICIAN: REFERRING PHYSICIAN: KARAN DOAN MD DATE OF SERVICE: 07/06/19 Discharge Plan Patient Name: GUNJAN BROWN Facility: [facility]:[place] : 1960 Planned Disposition: Inpatient Rehab Anticipated Discharge Date: Discharge Date: Expected LOS: Initial Reviewer: [id number] Initial Review Date: 06/27/2019 Generated: 07/06/19 1:40 pm Comments DCP- Discharge Planning Updated by [email or web address]: Bettina Kothari on 07/06/19 11:[address] ANA CALLED AND STATED THAT WE NEEDED TO DO A P2P FOR AUTH FOR SKILLED. I CALLED THE NUMBER THAT ANA GAVE ME AND SPOKE TO A RUPA MCCALLUM ([phone]) SHE STATED THAT SHE HAS BEEN REQUESTING CLINICALS SINCE SATURDAY AND WILL CLOSE OUT THE CASE BECAUSE SHE HAS NOT RECEIVED THEM, I HAVE FAXED CLINCIAL UPDATES TO [phone]. SHE WILL KEEP CASE OPEN AND CALL ME BACK WITH A DETERMINATION. CM TO FOLLOW AND ASSIST WITH DC PLANNING DCP- Discharge Planning Updated by [email or web address]: Bettina Kothari on 07/06/19 9:[address] Ana called back and she stated that they are still waiting on Auth DCP- Discharge Planning Updated by [email or web address]: Bettina Kothari on 07/06/19 9:[address] Called Ana with [facility] to get update on auth, left message DCP- Discharge Planning Updated by [id number]: Bettina Kothari on 07/03/19 2:[address] Ana came to assess patient and stated that she is good for [facility] rehab, just waiting on auth from her insurance. DCP- Discharge Planning Updated by [id number]: Bettina Kothari on 07/03/19 6:[address] Isabell with [facility] called back and stated that they could not accept her. Will wait for [facility] rehab DCP- Discharge Planning Updated by [id number]: Bettina Kothari on 07/02/19 2:[address] PENDING AUTH FOR SKILLED, CM TO FOLLOW DCP- Discharge Planning Updated by [email or web address]: Bettina Kothari on 07/02/19 11:[address] MAK SENT DCP- Discharge Planning Updated by [id number]: Bettina Kothari on 07/02/19 10:[address] SPOKE WITH PATIENT ABOUT LONG TERM, AIDA FOR [facility] AND [place] I CALLED ANA AND SENT REFERRAL FOR BOTH FACILITIES, IMM SERVED AND EXPLAINED AGAIN CM TO FOLLOW AND ASSIST DCP- Discharge Planning Updated by [email or web address]: Bettina Kothari on 06/30/19 1:[address] IMM SERVED AND EXPLAINED, PATIENT HAS BEEN DENIED FOR INPATIENT REHAB, AIDA FOR [facility]. SHE DOES NOT WANT TO GO TO A SKILLED FACILITY DCP- Discharge Planning Updated by [id number]: Bettina Kothari on 06/29/19 11:[address] Patient Name: GUNJAN BROWN Admission Status: ER Accout number: [id number] Admission Date: 06-27-2019 : 1960 Admission Diagnosis: Attending: KARAN DOAN Current LOS: 2 Anticipated DC Date: Planned Disposition: Inpatient Rehab Primary Insurance: [employer] CHO[employer] PPO MCR ADVANT Discharge Planning Comments: CM met with patient to complete initial dc planning assessment. CM educated patient on the CM role and verbal consent given by patient to complete assessment. 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 She stated that he is helpful, but works so she will be alone when discharged. At discharge patient would like to go to inpatient rehab at [facility] and feels this is a safe discharge. She is a managed medicare and will need prior auth to be accepted. We have stated the process for that. Patient has a BSC, Nebulizer, rolling walker, shower chair, walker and wheelchair at home. Patient denied known discharge needs at this time. CM will continue to follow and will assist as needed with dc plans/needs. Meat Inspector: Bettina Kothari DCP- Discharge Planning Updated by [id number]: Marina Wilson on 06/28/19 2:[address] CM CONSULT RECEIVED . CM WENT TO VISIT THE PATIENT. SHE ASK THAT CM REVISIT AT ANOTHER TIME. SHE HAD A FRIEND AT THE BEDSIDE.. SHE ALSO WAS A LITTLE UNCOMFORTABLE. CM TO FOLLOW TO ASSIST WITH DISCHARGE PLANNING. PHYSICAL THERAPY EVAL DONE TODAY. REPORTED SUPINE TO SIT W/ MODERATE ASSIST. TOO PAINFUL FOR SIT TO STAND TODAY. PHYSICAL THERAPY TO FOLLOW AND PROGRESS. PATIENT REPORTEDLY LIVES W/ ROOMMATE. REPORTEDLY HAS NO STEPS TO ENTER HER HOME. DCPIA - Discharge Planning Initial Assessment Updated by [id number]: Bettina Kothari on 06/29/19 12:06 pm * Is the patient Alert and Oriented? Yes * How many steps to enter\exit or inside your home? none * [facility]CP [facility] * [facility] * Preadmission Environment Home with Family * ADLs Independent * Equipment Bedside Commode Nebulizer Rolling Walker Shower Chair Walker Wheelchair * List name and contact numbers for known caregivers / representatives who currently or will assist patient after discharge: FERNANDO ALANIS (EX ) [phone] * Verbal permission to speak to the caregivers and representatives has been obtained from the patient. N/A * Community resources currently utilized None * Additional services required to return to the preadmission environment? Yes * Can the patient safely return to the preadmission environment? Yes * Has this patient been hospitalized within the prior 30 days at any hospital? No Coverage Notice Reviewer: [id number] Kothari Notice Issued Date-Time: 06/30/2019 10:10 Notice Type: IM Discharge Notice Notice Delivered To: Patient Relationship to Patient: Pupil Personnel Services Director Name: Delivery Method: HAND - Hand Delivered Mayte Days: Prior Verbal Notification: Recipient Understood Notice: Yes Recipient Signature: Yes Med Rec Note Co-signed by Attending: Coverage Notice Comment: Reviewer: [id number] Kothari Notice Issued Date-Time: 06/30/2019 10:10 Notice Type: Patient Choice Letter Notice Delivered To: Patient Relationship to Patient: Pupil Personnel Services Director Name: Delivery Method: HAND - Hand Delivered Mayte Days: Prior Verbal Notification: Recipient Understood Notice: Yes Recipient Signature: Yes Med Rec Note Co-signed by Attending: Coverage Notice Comment: Reviewer: [id number] Kothari Notice Issued Date-Time: 07/02/2019 11:00 Notice Type: IM Discharge Notice Notice Delivered To: Patient Relationship to Patient: Pupil Personnel Services Director Name: Delivery Method: HAND - Hand Delivered Mayte Days: Prior Verbal Notification: Recipient Understood Notice: Yes Recipient Signature: Yes Med Rec Note Co-signed by Attending: Coverage Notice Comment: Reviewer: [id number] - Bettina Kothari Notice Issued Date-Time: 07/02/2019 11:00 Notice Type: Patient Choice Letter Notice Delivered To: Patient Relationship to Patient: Pupil Personnel Services Director Name: Delivery Method: HAND - Hand Delivered Mayte Days: Prior Verbal Notification: Recipient Understood Notice: Yes Recipient Signature: Yes Med Rec Note Co-signed by Attending: Coverage Notice Comment: [facility] 1 [facility] 2 [place] Last DP export: 07/06/19 9:45 Patient Name: GUNJAN BROWN Page [id number] at 1240 All edits/amendments must be made on the electronic document DICTATION DATE: 07/06/19 124 TIGHTENING MACHINE OPERATOR: JORDAN 07/06/19 1240 RPT#: [id number] DC DATE: STATUS: ADM IN [facility] [address] [place] [address] END OF REPORT
--- NOTE | 2019-07-06 12:58 | MORECARE ---
CASE MANAGEMENT DISCHARGE SUMMARY PATIENT: GUNJAN BROWN UNIT: [id number] ADM DATE: 06/27/19 AGE: 58 : 58 SEX: F ROOM/BED: D.2219 AUTHOR: FABIÁNDOC PHYSICIAN: REFERRING PHYSICIAN: KARAN DOAN MD DATE OF SERVICE: 07/06/19 Discharge Plan Patient Name: GUNJAN BROWN Facility: [facility]:[place] : 1960 Planned Disposition: Inpatient Rehab Anticipated Discharge Date: Discharge Date: Expected LOS: Initial Reviewer: [id number] Initial Review Date: 06/27/2019 Generated: 07/06/19 1:57 pm Comments DCP- Discharge Planning Updated by [email or web address]: Bettina Kothari on 07/06/19 11:[address] CLINICAL FAXED TO [phone] (THE CORRECT NUMBER) DCP- Discharge Planning Updated by [email or web address]: Bettina Kothari on 07/06/19 11:[address] ANA CALLED AND STATED THAT WE NEEDED TO DO A P2P FOR AUTH FOR SKILLED. I CALLED THE NUMBER THAT ANA GAVE ME AND SPOKE TO A RUPA MCCALLUM ([phone]) SHE STATED THAT SHE HAS BEEN REQUESTING CLINICALS SINCE SATURDAY AND WILL CLOSE OUT THE CASE BECAUSE SHE HAS NOT RECEIVED THEM, I HAVE FAXED CLINCIAL UPDATES TO [phone]. SHE WILL KEEP CASE OPEN AND CALL ME BACK WITH A DETERMINATION. CM TO FOLLOW AND ASSIST WITH DC PLANNING DCP- Discharge Planning Updated by [email or web address]: Bettina Kothari on 07/06/19 9:[address] Ana called back and she stated that they are still waiting on Auth DCP- Discharge Planning Updated by [id number]: Bettina Kothari on 07/06/19 9:[address] [facility] get [facility], left message DCP- Discharge Planning Updated by [id number]: Bettina Kothari on 07/03/19 2:[address] Ana came to assess patient and stated that she is good for [facility] rehab, just waiting on auth from her insurance. DCP- Discharge Planning Updated by [id number]: Bettina Kothari on 07/03/19 6:[address] Isabell with [facility] called back and stated that they could not accept her. Will wait for [facility] and rehab DCP- Discharge Planning Updated by [email or web address]: Bettina Kothari on 07/02/19 2:[address] PENDING AUTH FOR SKILLED, CM TO FOLLOW DCP- Discharge Planning Updated by [id number]: Bettina Kothari on 07/02/19 11:[address] MAK SENT DCP- Discharge Planning Updated by [id number]: Bettina Kothari on 07/02/19 10:[address] SPOKE WITH PATIENT ABOUT RESIDENTIAL, AIDA FOR [facility] AND [place] I CALLED ANA AND SENT REFERRAL FOR BOTH FACILITIES, IMM SERVED AND EXPLAINED AGAIN CM TO FOLLOW AND ASSIST DCP- Discharge Planning Updated by [id number]: Bettina Kothari on 06/30/19 1:[address] IMM SERVED AND EXPLAINED, PATIENT HAS BEEN DENIED FOR INPATIENT REHAB, [facility] SHE DOES NOT WANT TO GO TO A SKILLED FACILITY DCP- Discharge Planning Updated by [email or web address]: Bettina Kothari on 06/29/19 11:[address] Patient Name: GUNJAN BROWN Admission Status: ER Accout number: [id number] Admission Date: 06-27-2019 : 1960 Admission Diagnosis: Attending: KARAN DOAN Current LOS: 2 Anticipated DC Date: Planned Disposition: Inpatient Rehab Primary Insurance: [employer] CHO[employer] PPO MCR ADVANT Discharge Planning Comments: CM met with patient to complete initial dc planning assessment. CM educated patient on the CM role and verbal consent given by patient to complete assessment. 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 She stated that he is helpful, but works so she will be alone when discharged. At discharge patient would like to go to inpatient rehab at [facility] and feels this is a safe discharge. She is a managed medicare and will need prior auth to be accepted. We have stated the process for that. Patient has a BSC, Nebulizer, rolling walker, shower chair, walker and wheelchair at home. Patient denied known discharge needs at this time. CM will continue to follow and will assist as needed with dc plans/needs. Steam Fitter Supervisor Maintenance: Bettina Kothari DCP- Discharge Planning Updated by [id number]: Marina Wilson on 06/28/19 2:[address] CM CONSULT RECEIVED . CM WENT TO VISIT THE PATIENT. SHE ASK THAT CM REVISIT AT ANOTHER TIME. SHE HAD A FRIEND AT THE BEDSIDE.. SHE ALSO WAS A LITTLE UNCOMFORTABLE. CM TO FOLLOW TO ASSIST WITH DISCHARGE PLANNING. PHYSICAL THERAPY EVAL DONE TODAY. REPORTED SUPINE TO SIT W/ MODERATE ASSIST. TOO PAINFUL FOR SIT TO STAND TODAY. PHYSICAL THERAPY TO FOLLOW AND PROGRESS. PATIENT REPORTEDLY LIVES W/ ROOMMATE. REPORTEDLY HAS NO STEPS TO ENTER HER HOME. DCPIA - Discharge Planning Initial Assessment Updated by [email or web address]: Bettina Kothari on 06/29/19 12:06 pm * Is the patient Alert and Oriented? Yes * How many steps to enter\exit or inside your home? none * [facility]CP [facility] * [facility] * Preadmission Environment Home with Family * ADLs Independent * Equipment Bedside Commode Nebulizer Rolling Walker Shower Chair Walker Wheelchair * List name and contact numbers for known caregivers / representatives who currently or will assist patient after discharge: FERNANDO ALANIS (EX ) [phone] * Verbal permission to speak to the caregivers and representatives has been obtained from the patient. N/A * Community resources currently utilized None * Additional services required to return to the preadmission environment? Yes * Can the patient safely return to the preadmission environment? Yes * Has this patient been hospitalized within the prior 30 days at any hospital? No Coverage Notice Reviewer: [id number] Gary Kothari Notice Issued Date-Time: 07/02/2019 11:00 Notice Type: Patient Choice Letter Notice Delivered To: Patient Relationship to Patient: Treer Name: Delivery Method: HAND - Hand Delivered Mayte Days: Prior Verbal Notification: Recipient Understood Notice: Yes Recipient Signature: Yes Med Rec Note Co-signed by Attending: Coverage Notice Comment: [facility] [address] Reviewer: [id number] Gary Kothari Notice Issued Date-Time: 06/30/2019 10:10 Notice Type: Patient Choice Letter Notice Delivered To: Patient Relationship to Patient: Treer Name: Delivery Method: HAND - Hand Delivered Mayte Days: Prior Verbal Notification: Recipient Understood Notice: Yes Recipient Signature: Yes Med Rec Note Co-signed by Attending: Coverage Notice Comment: Reviewer: [id number] Gary Kothari Notice Issued Date-Time: 07/02/2019 11:00 Notice Type: IM Discharge Notice Notice Delivered To: Patient Relationship to Patient: Treer Name: Delivery Method: HAND - Hand Delivered Mayte Days: Prior Verbal Notification: Recipient Understood Notice: Yes Recipient Signature: Yes Med Rec Note Co-signed by Attending: Coverage Notice Comment: Reviewer: [id number] Gary Kothari Notice Issued Date-Time: 06/30/2019 10:10 Notice Type: IM Discharge Notice Notice Delivered To: Patient Relationship to Patient: Treer Name: Delivery Method: HAND - Hand Delivered Mayte Days: Prior Verbal Notification: Recipient Understood Notice: Yes Recipient Signature: Yes Med Rec Note Co-signed by Attending: Coverage Notice Comment: Last DP export: 07/06/19 11:40 Patient Name: GUNJAN BROWN Page [id number] at 1258 All edits/amendments must be made on the electronic document DICTATION DATE: 07/06/19 1257 PHOTO RETOUCHER: JORDAN 07/06/19 1257 RPT#: [id number] DC DATE: STATUS: ADM IN [facility] [address] [place] [address] END OF REPORT
--- NOTE | 2019-07-06 17:06 | NUR ---
OT NOTE: PT COMPLETED BED MOB TASKS WITH SBA. PT COMPLETED SIT TO STAND WITH MIN A. PT COMPLETED BED TO BSC TRANSFER WITH CGA. PT REQUIRED MIN A FOR GOWN MANAGEMENT. ARRIAGA NOTIFIED NURSING THAT PATIENT REQUESTED VALVE ASSEMBLER TO WASH HAIR. PT REQUESTED FITTINGS FOR POST ON FIXATOR. NURSING NOTIFIED, THANK YOU, COIRNA MCNULTY
--- NOTE | 2019-07-06 17:21 | NUR ---
PATIENT SITTING UP IN BED EATING. NO COMPLAINTS OR SIGNS OF DISTRESS. CALL LIGHT WITHIN REACH.
[2019-07-06 17:25] VITALS: BP 104/57
--- NOTE | 2019-07-06 18:15 | NUR ---
SPOKE WITH DR. BRODERICK ABOUT PATIENT HAVING PAIN AND SWELLING IN LEG. DR. BRODERICK STATED HE WOULD COME SEE HER.
--- NOTE | 2019-07-06 18:30 | NUR ---
DR. BRODERICK TO SEE PATIENT.
--- NOTE | 2019-07-06 20:00 | NUR ---
ASSESSMENT PER FLOWSHEET. DRSG TO LEFT LEG WITH EXTERNAL FIXATOR IN PLACE C/D/I. ALERT/ORIENTED X4 SR UP X2 CALL LIGHT WITHIN REACH. INFORMED PATIENT SURGERY WOULD BE ON 07/09/19. WRITTEN PER DR. BRODERICK.
[2019-07-06 20:53] VITALS: BP 120/67
--- NOTE | 2019-07-06 21:15 | NUR ---
MEDS GIVEN PER MAR.
--- NOTE | 2019-07-06 21:46 | NUR ---
REQUESTING PAIN PIL. FOR A #8 PAIN LEVEL. NORCO 10/325 MG TAB ONE PO GIVEN FOR PAIN CONTROL. DRESSING CHANGE TO LEFT LEG DONE WITH HYDROGEN PERIOXIDE/DRAIN SPONGE/AND KERLEX WRAP. LAVELLE WRAP APPLIED. LEFT LEG ELEVATED ON 3 PILLOWS.
--- NOTE | 2019-07-07 00:34 | NUR ---
RESTING QUIETLY AT THIS TIME. DENIES NEEDS.
[2019-07-07 04:00] VITALS: BP 111/62
[2019-07-07 06:38] LABS: BASOPHILS 0.5 % (0-2); EOSINOPHILS 9.8 % (0-7); HEMATOCRIT 31.8 % (36.0-48.0); IMMATURE GRANULOCYTES 0.2 % (0-5); LYMPHOCYTES 31.3 % (15-50); MCH 29.8 pg (26.0-34.0); MCHC 31.4 g/dL (31.0-37.0); MCV 94.6 fL (80.0-100.0); MEAN PLATELET VOLUME 8.9 fL (7.4-10.4); MONOCYTES 8.9 % (2-11); NEUTROPHILS 49.3 % (40-80); PLATELET COUNT 307 10x3/uL (130-400); RBC 3.36 10x6/uL (4.00-5.40); RDW 21.2 % (11.5-14.5); WBC 6.5 10x3/uL (4.8-10.8)
--- NOTE | 2019-07-07 06:48 | NUR ---
MEDS PER MAR.
[2019-07-07 06:50] LABS: CALC OSMOLALITY 286 mosm/kg (275-300); CALCIUM 9.1 mg/dL (8.5-10.1); CARBON DIOXIDE 32.3 mmol/L (21.0-32.0); CHLORIDE - SERUM 105 mmol/L (98-107); CREATININE - SERUM 0.8 mg/dL (0.6-1.3); GLUCOSE 81 mg/dL (74-106); POTASSIUM - SERUM 3.8 mmol/L (3.5-5.1); SODIUM 144 mmol/L (136-145); UREA NITROGEN 16 mg/dL (7-18); eGFR NON AFRICAN AMERICAN 78 mL/min (90-120)
[2019-07-07 08:29] VITALS: BP 108/75
--- NOTE | 2019-07-07 09:32 | NUR ---
PIN SITE CARE DONE AND DRESSING REPLACED AT THIS TIME. PATIENT TOLERATED WITH SMALL AMOUNT OF PAIN. NO OTHER COMPLAINTS, DENIES NEEDS. WILL CONTINUE TO MONITOR. CALL LIGHT WITHIN REACH.
[2019-07-07 12:38] VITALS: BP 95/60
--- NOTE | 2019-07-07 18:40 | NUR ---
PATIENT IN BED WITH NO COMPLAINTS OR SIGNS OF DISTRESS. DRESSING TO FOOT CLEAN AND DRY. LLE ELEVATED. CALL LIGHT WITHIN REACH.
--- NOTE | 2019-07-07 19:30 | NUR ---
PERMITS FOR SURGERY GIVEN TO PATIENT AND EXPLAINED. SIGNED ,WITNESSED AND PLACED ON CHART.
[2019-07-07 21:13] VITALS: BP 112/59
--- NOTE | 2019-07-07 21:35 | NUR ---
C/O PAIN LEFT LEG MEDS GIVEN PER NOV. NORCO 10 MG TAB ONE PO GIVEN FOR PAIN CONTROL.
--- NOTE | 2019-07-07 22:51 | NUR ---
RESTING QUIETLY INSTRUCTED PATIENT ON NPO STATUS AFTER MIDNIGHT FOR SURGERY IN AM.
[2019-07-08 01:20] VITALS: BP 124/64
[2019-07-08 05:11] VITALS: BP 128/68
[2019-07-08 05:30] LABS: BASOPHILS 0.5 % (0-2); EOSINOPHILS 10.6 % (0-7); HEMATOCRIT 29.5 % (36.0-48.0); HEMOGLOBIN 9.3 g/dL (12-16); IMMATURE GRANULOCYTES 0.2 % (0-5); LYMPHOCYTES 29.4 % (15-50); MCH 29.5 pg (26.0-34.0); MCHC 31.5 g/dL (31.0-37.0); MCV 93.7 fL (80.0-100.0); MEAN PLATELET VOLUME 8.7 fL (7.4-10.4); MONOCYTES 10.6 % (2-11); NEUTROPHILS 48.7 % (40-80); PLATELET COUNT 272 10x3/uL (130-400); RBC 3.15 10x6/uL (4.00-5.40); WBC 6.2 10x3/uL (4.8-10.8)
[2019-07-08 06:04] LABS: CALC OSMOLALITY 283 mosm/kg (275-300); CALCIUM 8.7 mg/dL (8.5-10.1); CARBON DIOXIDE 32.2 mmol/L (21.0-32.0); CHLORIDE - SERUM 105 mmol/L (98-107); CREATININE - SERUM 0.6 mg/dL (0.6-1.3); GLUCOSE 81 mg/dL (74-106); POTASSIUM - SERUM 3.5 mmol/L (3.5-5.1); SODIUM 143 mmol/L (136-145); UREA NITROGEN 13 mg/dL (7-18); eGFR NON AFRICAN AMERICAN > 90 mL/min (90-120)
--- NOTE | 2019-07-08 08:00 | NUR ---
ASSESSMENT PER FLOW SHEET. PT IS WITHOUT DISTRESS.MONITOR FOR NEEDS.NPO FOR SURGERY TODAY.
[2019-07-08 08:01] VITALS: BP 120/63
--- NOTE | 2019-07-08 11:56 | NUR ---
TO OR VIA BED. UNABLE TO GET IV RESITED. PT IV WILL BE SITED IN OR PER ANESHTESIA.
[2019-07-08 13:57] VITALS: BP 102/77
[2019-07-08 16:46] VITALS: BP 113/67
--- NOTE | 2019-07-09 03:47 | NUR ---
C/O PAIN INCISIONAL AREA. RATES #6-7. DEMEROL 75MG IM AMD PHENERGAN 25MG IM GIVEN RT HIP FOR PAIN CONTROL.
[2019-07-09 04:00] VITALS: BP 105/63
[2019-07-09 05:31] LABS: BASOPHILS 0.1 % (0-2); EOSINOPHILS 0 % (0-7); HEMATOCRIT 29.9 % (36.0-48.0); HEMOGLOBIN 9.2 g/dL (12-16); IMMATURE GRANULOCYTES 0.1 % (0-5); LYMPHOCYTES 14.7 % (15-50); MCH 29.8 pg (26.0-34.0); MCHC 30.8 g/dL (31.0-37.0); MEAN PLATELET VOLUME 9.1 fL (7.4-10.4); MONOCYTES 6.1 % (2-11); PLATELET COUNT 300 10x3/uL (130-400); RBC 3.09 10x6/uL (4.00-5.40); RDW 20.9 % (11.5-14.5)
[2019-07-09 05:42] LABS: ANION GAP 8.6 mmol/L (8-16); CALCIUM 8.6 mg/dL (8.5-10.1); CARBON DIOXIDE 31.3 mmol/L (21.0-32.0); MAGNESIUM - SERUM 1.9 mg/dL (1.8-2.4); MCV 96.8 fL (80.0-100.0); POTASSIUM - SERUM 3.9 mmol/L (3.5-5.1)
[2019-07-09 05:54] LABS: CREATININE - SERUM 0.9 mg/dL (0.6-1.3)
--- NOTE | 2019-07-09 09:00 | NUR ---
ASSESSMENT PER FLOW SHEET. PT IS WITHOUT DISTRESS.WANTS PAIN MEDS WHEN TIME.CALL LIGHT IN REACH
[2019-07-09 09:48] VITALS: BP 104/57
[2019-07-09 12:29] VITALS: BP 110/58
--- NOTE | 2019-07-09 15:46 | NUR ---
OT NOTE: PT COMPLETED EOB SITTING WITH SBA. PT COMPLETED SUPINE TO SIT WITH MIN A/CGA. PT COMPLETED HYGIENE TASKS WITH SETUP. THANK YOU, CORINA MCNULTY
[2019-07-09 16:23] VITALS: BP 97/60
[2019-07-09 20:00] VITALS: BP 109/57
[2019-07-10 04:00] VITALS: BP 123/66
--- NOTE | 2019-07-10 05:22 | NUR ---
AT THE BEGINNING OF THE SHIFT PT REQUESTED TO HAVE A DIFFERENT BED. AT THAT TIME A NEW BED WAS OBTAINED AND SHE WAS ASSISTED UP TO THE BEDSIDE CHAIR WHILE WE EXCHANGED HER BED. HER ROOM MATE ASSISTED NURSE. SHE THEN REQUESTED PAIN MEDS. NO MORE COMPLAINTS ABOUT THE BED.
[2019-07-10 05:46] LABS: BASOPHILS 0.3 % (0-2); EOSINOPHILS 4.3 % (0-7); HEMATOCRIT 31.3 % (36.0-48.0); HEMOGLOBIN 9.5 g/dL (12-16); IMMATURE GRANULOCYTES 0.3 % (0-5); LYMPHOCYTES 23.9 % (15-50); MCH 29.6 pg (26.0-34.0); MCHC 30.4 g/dL (31.0-37.0); MCV 97.5 fL (80.0-100.0); MEAN PLATELET VOLUME 9.1 fL (7.4-10.4); MONOCYTES 8.4 % (2-11); NEUTROPHILS 62.8 % (40-80); PLATELET COUNT 298 10x3/uL (130-400); RBC 3.21 10x6/uL (4.00-5.40); RDW 20.5 % (11.5-14.5); WBC 7.4 10x3/uL (4.8-10.8)
[2019-07-10 06:00] LABS: ANION GAP 7.2 mmol/L (8-16); CALCIUM 8.8 mg/dL (8.5-10.1); CARBON DIOXIDE 30.9 mmol/L (21.0-32.0); CREATININE - SERUM 0.9 mg/dL (0.6-1.3); MAGNESIUM - SERUM 1.9 mg/dL (1.8-2.4)
[2019-07-10 06:06] LABS: POTASSIUM - SERUM 3.1 mmol/L (3.5-5.1)
--- NOTE | 2019-07-10 08:45 | NUR ---
PATIENT IN BED WITH IV X 2 INTACT. NO COMPLAINTS OR SIGNS OF DISTRESS. LLE ELEVATED ON PILLOW. PATIENT EYES CLOSED RESTING QUIETLY. CALL LIGHT WITHIN REACH.
[2019-07-10 08:47] VITALS: BP 120/69
--- NOTE | 2019-07-10 10:40 | NUR ---
LEFT FA IV RED AND HURTING. REMOVED WITH CATH INTACT. RIGHT WRIST IV CLOTTED. REMOVED WITH CATH INTACT.
[2019-07-10] MEDS ORDERED: HYDROCODON-ACE1 EA10 PO (12:32)
[2019-07-10] MEDS ORDERED: PROTONIX40 MG PO (12:45)
[2019-07-10] MEDS ORDERED: [UNRECOGNIZED DRUG - OTHER] TOPICAL (12:45)
[2019-07-10] MEDS ORDERED: VITAMIN D31000 UNI2 PO (12:45)
[2019-07-10] MEDS ORDERED: COLACE100 MG PO (12:45)
[2019-07-10] MEDS ORDERED: FLORAJEN3 CAPS460 MG PO (12:45)
[2019-07-10 13:13] VITALS: BP 111/59
--- NOTE | 2019-07-10 14:49 | MORECARE ---
CASE MANAGEMENT DISCHARGE SUMMARY PATIENT: GUNJAN BROWN UNIT: [id number] ADM DATE: 06/27/19 AGE: 58 : 58 SEX: F ROOM/BED: D.2219 AUTHOR: FABIÁN,DOC PHYSICIAN: REFERRING PHYSICIAN: KARAN DOAN MD DATE OF SERVICE: 07/10/19 Discharge Plan Patient Name: GUNJAN BROWN Facility: [facility]:[place] : 1960 Planned Disposition: Inpatient Rehab Anticipated Discharge Date: Discharge Date: Expected LOS: Initial Reviewer: [id number] Initial Review Date: 06/27/2019 Generated: 07/10/19 3:48 pm Comments DCP- Discharge Planning Updated by [id number]: Bettina Kothari on 07/10/19 1:[address] Patient will be discharging to [facility] to a skilled bed. They will come transport her. IMM served and explained. Copy placed in chart. DCP- Discharge Planning Updated by [email or web address]: Bettina Kothari on 07/06/19 11:[address] CLINICAL FAXED TO [phone] (THE CORRECT NUMBER) DCP- Discharge Planning Updated by [id number]: Bettina Kothari on 07/06/19 11:[address] ANA CALLED AND STATED THAT WE NEEDED TO DO A P2P FOR AUTH FOR SKILLED. I CALLED THE NUMBER THAT ANA GAVE ME AND SPOKE TO A RUPA MCCALLUM ([phone]) SHE STATED THAT SHE HAS BEEN REQUESTING CLINICALS SINCE SATURDAY AND WILL CLOSE OUT THE CASE BECAUSE SHE HAS NOT RECEIVED THEM, I HAVE FAXED CLINCIAL UPDATES TO [phone]. SHE WILL KEEP CASE OPEN AND CALL ME BACK WITH A DETERMINATION. CM TO FOLLOW AND ASSIST WITH DC PLANNING DCP- Discharge Planning Updated by [email or web address]: Bettina Kothari on 07/06/19 9:[address] Ana called back and she stated that they are still waiting on Auth DCP- Discharge Planning Updated by [email or web address]: Bettina Kothari on 07/06/19 9:[address] Called Ana with [facility] to get update on auth, left message DCP- Discharge Planning Updated by [id number]: Bettina Kothari on 07/03/19 2:[address] Ana came to assess patient and stated that she is good for [facility], just waiting on auth from her insurance. DCP- Discharge Planning Updated by [id number]: Bettina Kothari on 07/03/19 6:[address] Isabell with [facility] called back and stated that they could not accept her. Will wait for [facility] DCP- Discharge Planning Updated by [email or web address]: Bettina Kothari on 07/02/19 2:[address] PENDING AUTH FOR SKILLED, CM TO FOLLOW DCP- Discharge Planning Updated by [email or web address]: Bettina Kothari on 07/02/19 11:[address] MAK SENT DCP- Discharge Planning Updated by [email or web address]: Bettina Kothari on 07/02/19 10:[address] SPOKE WITH PATIENT ABOUT JAIL, AIDA FOR [facility] I CALLED ANA AND SENT REFERRAL FOR BOTH FACILITIES, IMM SERVED AND EXPLAINED AGAIN CM TO FOLLOW AND ASSIST DCP- Discharge Planning Updated by [email or web address]: Bettina Kothari on 06/30/19 1:[address] IMM SERVED AND EXPLAINED, PATIENT HAS BEEN DENIED FOR INPATIENT REHAB, AIDA FOR [facility]. SHE DOES NOT WANT TO GO TO A SKILLED FACILITY DCP- Discharge Planning Updated by [email or web address]: Bettina Kothari on 06/29/19 11:[address] Patient Name: GUNJAN BROWN Admission Status: ER Accout number: [id number] Admission Date: 06-27-2019 : 1960 Admission Diagnosis: Attending: KARAN DOAN Current LOS: 2 Anticipated DC Date: Planned Disposition: Inpatient Rehab Primary Insurance: [employer] PPO M[employer] Discharge Planning Comments: CM met with patient to complete initial dc planning assessment. CM educated patient on the CM role and verbal consent given by patient to complete assessment. Patient lives at home with her ex who will be her motor coach driver home at discharge. She stated that he is helpful, but works so she will be alone when discharged. At discharge patient would like to go to inpatient rehab at [facility] and feels this is a safe discharge. She is a managed medicare and will need prior auth to be accepted. We have stated the process for that. Patient has a BSC, Nebulizer, rolling walker, shower chair, walker and wheelchair at home. Patient denied known discharge needs at this time. CM will continue to follow and will assist as needed with dc plans/needs. Campus Police Officer: Bettina Kothari DCP- Discharge Planning Updated by [id number]: Marina Wilson on 06/28/19 2:[address] CM CONSULT RECEIVED . CM WENT TO VISIT THE PATIENT. SHE ASK THAT CM REVISIT AT ANOTHER TIME. SHE HAD A FRIEND AT THE BEDSIDE.. SHE ALSO WAS A LITTLE UNCOMFORTABLE. CM TO FOLLOW TO ASSIST WITH DISCHARGE PLANNING. PHYSICAL THERAPY EVAL DONE TODAY. REPORTED SUPINE TO SIT W/ MODERATE ASSIST. TOO PAINFUL FOR SIT TO STAND TODAY. PHYSICAL THERAPY TO FOLLOW AND PROGRESS. PATIENT REPORTEDLY LIVES W/ ROOMMATE. REPORTEDLY HAS NO STEPS TO ENTER HER HOME. DCPIA - Discharge Planning Initial Assessment Updated by [email or web address]: Bettina Kothari on 06/29/19 12:06 pm * Is the patient Alert and Oriented? Yes * How many steps to enter\exit or inside your home? none * [facility]CP [facility] * [facility] * Preadmission Environment Home with Family * ADLs Independent * Equipment Bedside Commode Nebulizer Rolling Walker Shower Chair Walker Wheelchair * List name and contact numbers for known caregivers / representatives who currently or will assist patient after discharge: FERNANDO ALANIS (EX ) [phone] * Verbal permission to speak to the caregivers and representatives has been obtained from the patient. N/A * Community resources currently utilized None * Additional services required to return to the preadmission environment? Yes * Can the patient safely return to the preadmission environment? Yes * Has this patient been hospitalized within the prior 30 days at any hospital? No Coverage Notice Reviewer: [id number] Gary Kothari Notice Issued Date-Time: 06/30/2019 10:10 Notice Type: IM Discharge Notice Notice Delivered To: Patient Relationship to Patient: Bolt Machine Operator Name: Delivery Method: HAND - Hand Delivered Mayte Days: Prior Verbal Notification: Recipient Understood Notice: Yes Recipient Signature: Yes Med Rec Note Co-signed by Attending: Coverage Notice Comment: Reviewer: [id number] Gary Kothari Notice Issued Date-Time: 06/30/2019 10:10 Notice Type: Patient Choice Letter Notice Delivered To: Patient Relationship to Patient: Bolt Machine Operator Name: Delivery Method: HAND - Hand Delivered Mayte Days: Prior Verbal Notification: Recipient Understood Notice: Yes Recipient Signature: Yes Med Rec Note Co-signed by Attending: Coverage Notice Comment: Reviewer: AMY Kothari Notice Issued Date-Time: 07/02/2019 11:00 Notice Type: IM Discharge Notice Notice Delivered To: Patient Relationship to Patient: Bolt Machine Operator Name: Delivery Method: HAND - Hand Delivered Mayte Days: Prior Verbal Notification: Recipient Understood Notice: Yes Recipient Signature: Yes Med Rec Note Co-signed by Attending: Coverage Notice Comment: Reviewer: AMY Kothari Notice Issued Date-Time: 07/02/2019 11:00 Notice Type: Patient Choice Letter Notice Delivered To: Patient Relationship to Patient: Bolt Machine Operator Name: Delivery Method: HAND - Hand Delivered Mayte Days: Prior Verbal Notification: Recipient Understood Notice: Yes Recipient Signature: Yes Med Rec Note Co-signed by Attending: Coverage Notice Comment: [facility] Juli KAY Reviewer: [id number] Kothari Notice Issued Date-Time: 07/10/2019 14:30 Notice Type: IM Discharge Notice Notice Delivered To: Patient Relationship to Patient: Bolt Machine Operator Name: Delivery Method: HAND - Hand Delivered Mayte Days: Prior Verbal Notification: Recipient Understood Notice: Yes Recipient Signature: Yes Med Rec Note Co-signed by Attending: Coverage Notice Comment: Last DP export: 07/06/19 11:58 Patient Name: GUNJAN BROWN Page [id number] at 1449 All edits/amendments must be made on the electronic document DICTATION DATE: 07/10/191447 NUCLEAR MEDICAL TECHNOLOGIST: JORDAN 07/10/191447 RPT#: [id number] DC DATE: STATUS: ADM IN [facility] [address] [place] [address] END OF REPORT
--- NOTE | 2019-07-10 15:30 | NUR ---
PATIENT ASSISTED TO WITH MAINTENANCE SERVICE TECHNICIAN AT THIS TIME. [facility] RECIEVED DC PAPERS BY MARY JANE RAM. PATIENT AND PERSONAL BELONGINGS TAKEN DOWN TO TRANSPORTATION WITH PERSONAL VEHICLES.
--- NOTE | 2019-07-10 17:26 | MORECARE ---
CASE MANAGEMENT DISCHARGE SUMMARY PATIENT: GUNJAN BROWN UNIT: [id number] ADM DATE: 06/27/19 AGE: 58 : 58 SEX: F ROOM/BED: D.2219 AUTHOR: FABIÁN,DOC PHYSICIAN: REFERRING PHYSICIAN: KARAN DOAN MD DATE OF SERVICE: 07/10/19 Discharge Plan Patient Name: GUNJAN BROWN Facility: [facility]:[place] : 1960 Planned Disposition: Inpatient Rehab Anticipated Discharge Date: Discharge Date: Expected LOS: Initial Reviewer: [id number] Initial Review Date: 06/27/2019 Generated: 07/10/19 6:25 pm Comments DCP- Discharge Planning Updated by [email or web address]: Bettina Kothari on 07/10/19 1:[address] Patient will be discharging to [facility] to a skilled bed. They will come transport her. IMM served and explained. Copy placed in chart. DCP- Discharge Planning Updated by [id number]: Bettina Kothari on 07/06/19 11:[address] CLINICAL FAXED TO [phone] (THE CORRECT NUMBER) DCP- Discharge Planning Updated by [email or web address]: Bettina Kothari on 07/06/19 11:[address] ANA CALLED AND STATED THAT WE NEEDED TO DO A P2P FOR AUTH FOR SKILLED. I CALLED THE NUMBER THAT ANA GAVE ME AND SPOKE TO A RUPA MCCALLUM ([phone]) SHE STATED THAT SHE HAS BEEN REQUESTING CLINICALS SINCE SATURDAY AND WILL CLOSE OUT THE CASE BECAUSE SHE HAS NOT RECEIVED THEM, I HAVE FAXED CLINCIAL UPDATES TO [phone]. SHE WILL KEEP CASE OPEN AND CALL ME BACK WITH A DETERMINATION. CM TO FOLLOW AND ASSIST WITH DC PLANNING DCP- Discharge Planning Updated by [email or web address]: Bettina Kothari on 07/06/19 9:[address] Ana called back and she stated that they are still waiting on Auth DCP- Discharge Planning Updated by [email or web address]: Bettina Kothari on 07/06/19 9:[address] Called Ana with [facility] to get update on auth, left message DCP- Discharge Planning Updated by [id number]: Bettina Kothari on 07/03/19 2:[address] Ana came to assess patient and stated that she is good for [facility], just waiting on auth from her insurance. DCP- Discharge Planning Updated by [id number]: Bettina Kothari on 07/03/19 6:[address] Isabell with [facility] called back and stated that they could not accept her. Will wait for [facility] DCP- Discharge Planning Updated by [id number]: Bettina Kothari on 07/02/19 2:[address] PENDING AUTH FOR SKILLED, CM TO FOLLOW DCP- Discharge Planning Updated by [id number]: Bettina Kothari on 07/02/19 11:[address] [facility] SENT DCP- Discharge Planning Updated by [email or web address]: Bettina Kothari on 07/02/19 10:[address] SPOKE WITH PATIENT ABOUT RETIREMENT, AIDA FOR [facility] AND [facility] I CALLED ANA AND SENT REFERRAL FOR BOTH FACILITIES, IMM SERVED AND EXPLAINED AGAIN CM TO FOLLOW AND ASSIST DCP- Discharge Planning Updated by [id number]: Bettina Kothari on 06/30/19 1:[address] IMM SERVED AND EXPLAINED, PATIENT HAS BEEN DENIED FOR INPATIENT REHAB, AIDA FOR [facility]. SHE DOES NOT WANT TO GO TO A SKILLED FACILITY DCP- Discharge Planning Updated by [email or web address]: Bettina Kothari on 06/29/19 11:[address] Patient Name: GUNJAN BROWN Admission Status: ER Accout number: [id number] Admission Date: 06-27-2019 : 1960 Admission Diagnosis: Attending: KARAN DOAN Current LOS: 2 Anticipated DC Date: Planned Disposition: Inpatient Rehab Primary Insurance: [employer] PPO M[employer] Discharge Planning Comments: CM met with patient to complete initial dc planning assessment. CM educated patient on the CM role and verbal consent given by patient to complete assessment. Patient lives at home with her ex who will be her intermodal owner operator truck driver home at discharge. She stated that he is helpful, but works so she will be alone when discharged. At discharge patient would like to go to inpatient rehab at [facility] and feels this is a safe discharge. She is a managed medicare and will need prior auth to be accepted. We have stated the process for that. Patient has a BSC, Nebulizer, rolling walker, shower chair, walker and wheelchair at home. Patient denied known discharge needs at this time. CM will continue to follow and will assist as needed with dc plans/needs. Magistrate Assistant: Bettina Kothari DCP- Discharge Planning Updated by [id number]: Marina Wilson on 06/28/19 2:[address] CM CONSULT RECEIVED . CM WENT TO VISIT THE PATIENT. SHE ASK THAT CM REVISIT AT ANOTHER TIME. SHE HAD A FRIEND AT THE BEDSIDE.. SHE ALSO WAS A LITTLE UNCOMFORTABLE. CM TO FOLLOW TO ASSIST WITH DISCHARGE PLANNING. PHYSICAL THERAPY EVAL DONE TODAY. REPORTED SUPINE TO SIT W/ MODERATE ASSIST. TOO PAINFUL FOR SIT TO STAND TODAY. PHYSICAL THERAPY TO FOLLOW AND PROGRESS. PATIENT REPORTEDLY LIVES W/ ROOMMATE. REPORTEDLY HAS NO STEPS TO ENTER HER HOME. DCPIA - Discharge Planning Initial Assessment Updated by [id number]: Bettina Kothari on 06/29/19 12:06 pm * Is the patient Alert and Oriented? Yes * How many steps to enter\exit or inside your home? none * [facility]CP [facility] * [facility] * Preadmission Environment Home with Family * ADLs Independent * Equipment Bedside Commode Nebulizer Rolling Walker Shower Chair Walker Wheelchair * List name and contact numbers for known caregivers / representatives who currently or will assist patient after discharge: FERNANDO ALANIS (EX ) [phone] * Verbal permission to speak to the caregivers and representatives has been obtained from the patient. N/A * Community resources currently utilized None * Additional services required to return to the preadmission environment? Yes * Can the patient safely return to the preadmission environment? Yes * Has this patient been hospitalized within the prior 30 days at any hospital? No Coverage Notice Reviewer: [id number] Gary Kothari Notice Issued Date-Time: 06/30/2019 10:10 Notice Type: IM Discharge Notice Notice Delivered To: Patient Relationship to Patient: General I Farmworker Name: Delivery Method: HAND - Hand Delivered Mayte Days: Prior Verbal Notification: Recipient Understood Notice: Yes Recipient Signature: Yes Med Rec Note Co-signed by Attending: Coverage Notice Comment: Reviewer: [id number] Gary Kothari Notice Issued Date-Time: 06/30/2019 10:10 Notice Type: Patient Choice Letter Notice Delivered To: Patient Relationship to Patient: General I Farmworker Name: Delivery Method: HAND - Hand Delivered Mayte Days: Prior Verbal Notification: Recipient Understood Notice: Yes Recipient Signature: Yes Med Rec Note Co-signed by Attending: Coverage Notice Comment: Reviewer: AMY Kothari Notice Issued Date-Time: 07/02/2019 11:00 Notice Type: IM Discharge Notice Notice Delivered To: Patient Relationship to Patient: General I Farmworker Name: Delivery Method: HAND - Hand Delivered Mayte Days: Prior Verbal Notification: Recipient Understood Notice: Yes Recipient Signature: Yes Med Rec Note Co-signed by Attending: Coverage Notice Comment: Reviewer: AMY Kothari Notice Issued Date-Time: 07/02/2019 11:00 Notice Type: Patient Choice Letter Notice Delivered To: Patient Relationship to Patient: General I Farmworker Name: Delivery Method: HAND - Hand Delivered Mayte Days: Prior Verbal Notification: Recipient Understood Notice: Yes Recipient Signature: Yes Med Rec Note Co-signed by Attending: Coverage Notice Comment: [facility] Juli RICHARD KAY Reviewer: [id number] Kothari Notice Issued Date-Time: 07/10/2019 14:30 Notice Type: IM Discharge Notice Notice Delivered To: Patient Relationship to Patient: General I Farmworker Name: Delivery Method: HAND - Hand Delivered Mayte Days: Prior Verbal Notification: Recipient Understood Notice: Yes Recipient Signature: Yes Med Rec Note Co-signed by Attending: Coverage Notice Comment: Last DP export: 07/10/19 1:49 Patient Name: GUNJAN BROWN Page [id number] at 1726 All edits/amendments must be made on the electronic document DICTATION DATE: 07/10/191724 GRINDING OPERATOR: JORDAN 07/10/191724 RPT#: [id number] DC DATE: STATUS: ADM IN [facility] [address] [place] [address] END OF REPORT
--- NOTE | 2019-07-13 14:47 | MORECARE ---
CASE MANAGEMENT DISCHARGE SUMMARY PATIENT: GNUJAN BROWN UNIT: [id number] ADM DATE: 06/27/19 AGE: 58 : 58 SEX: F ROOM/BED: D.2219 AUTHOR: FABIÁN,DOC PHYSICIAN: REFERRING PHYSICIAN: KARAN DOAN MD DATE OF SERVICE: 07/13/19 Discharge Plan Patient Name: GUNJAN BROWN Facility: [facility]:[place] : 1960 Planned Disposition: Inpatient Rehab Anticipated Discharge Date: Discharge Date: 07/10/2019 Expected LOS: 0 Initial Reviewer: [email or web address] Initial Review Date: 06/27/2019 Generated: 07/13/19 3:46 pm Comments DCP- Discharge Planning Updated by [email or web address]: Bettina Kothari on 07/10/19 1:[address] Patient will be discharging to [facility] to a skilled bed. They will come transport her. IMM served and explained. Copy placed in chart. DCP- Discharge Planning Updated by [email or web address]: Bettina Kothari on 07/06/19 11:[address] CLINICAL FAXED TO [phone] (THE CORRECT NUMBER) DCP- Discharge Planning Updated by [email or web address]: Bettina Kothari on 07/06/19 11:[address] ANA CALLED AND STATED THAT WE NEEDED TO DO A P2P FOR AUTH FOR SKILLED. I CALLED THE NUMBER THAT ANA GAVE ME AND SPOKE TO A RUPA MCCALLUM ([phone]) SHE STATED THAT SHE HAS BEEN REQUESTING CLINICALS SINCE SATURDAY AND WILL CLOSE OUT THE CASE BECAUSE SHE HAS NOT RECEIVED THEM, I HAVE FAXED CLINCIAL UPDATES TO [phone]. SHE WILL KEEP CASE OPEN AND CALL ME BACK WITH A DETERMINATION. CM TO FOLLOW AND ASSIST WITH DC PLANNING DCP- Discharge Planning Updated by [id number]: Bettina Kothari on 07/06/19 9:[address] Ana called back and she stated that they are still waiting on Auth DCP- Discharge Planning Updated by [id number]: Bettina Kothari on 07/06/19 9:[address] Called Ana with [facility] to get update on auth, left message DCP- Discharge Planning Updated by [id number]: Bettina Kothari on 07/03/19 2:[address] Ana came to assess patient and stated that she is good for [facility], just waiting on auth from her insurance. DCP- Discharge Planning Updated by [email or web address]: Bettina Kothari on 07/03/19 6:[address] Isabell with [facility] called back and stated that they could not accept her. Will wait for [facility] DCP- Discharge Planning Updated by [id number]: Bettina Kothari on 07/02/19 2:[address] PENDING AUTH FOR SKILLED, CM TO FOLLOW DCP- Discharge Planning Updated by [email or web address]: Bettina Kothari on 07/02/19 11:[address] MAK SENT DCP- Discharge Planning Updated by [id number]: Bettina Kothari on 07/02/19 10:[address] SPOKE WITH PATIENT ABOUT [facility]ARE HOME, [facility] FOR [facility] I CALLED ANA AND SENT REFERRAL FOR BOTH FACILITIES, IMM SERVED AND EXPLAINED AGAIN CM TO FOLLOW AND ASSIST DCP- Discharge Planning Updated by [email or web address]: Bettina Kothari on 06/30/19 1:[address] IMM SERVED AND EXPLAINED, PATIENT HAS BEEN DENIED FOR INPATIENT REHAB, AIDA FOR [facility]. SHE DOES NOT WANT TO GO TO A SKILLED FACILITY DCP- Discharge Planning Updated by [id number]: Bettina Kothari on 06/29/19 11:[address] Patient Name: GUNJAN BROWN Admission Status: ER Accout number: [id number] Admission Date: 06-27-2019 : 1960 Admission Diagnosis: Attending: KARAN DOAN Current LOS: 2 Anticipated DC Date: Planned Disposition: Inpatient Rehab Primary Insurance: [employer] CHO[employer] PPO M[employer]VANT Discharge Planning Comments: CM met with patient to complete initial dc planning assessment. CM educated patient on the CM role and verbal consent given by patient to complete assessment. Patient lives at home with her ex who will be her class b truck driver home at discharge. She stated that he is helpful, but works so she will be alone when discharged. At discharge patient would like to go to inpatient rehab at [facility] and feels this is a safe discharge. She is a managed medicare and will need prior auth to be accepted. We have stated the process for that. Patient has a BSC, Nebulizer, rolling walker, shower chair, walker and wheelchair at home. Patient denied known discharge needs at this time. CM will continue to follow and will assist as needed with dc plans/needs. Development Technologist: Bettina Kothari DCP- Discharge Planning Updated by [id number]: Marina Wilson on 06/28/19 2:[address] CM CONSULT RECEIVED . CM WENT TO VISIT THE PATIENT. SHE ASK THAT CM REVISIT AT ANOTHER TIME. SHE HAD A FRIEND AT THE BEDSIDE.. SHE ALSO WAS A LITTLE UNCOMFORTABLE. CM TO FOLLOW TO ASSIST WITH DISCHARGE PLANNING. PHYSICAL THERAPY EVAL DONE TODAY. REPORTED SUPINE TO SIT W/ MODERATE ASSIST. TOO PAINFUL FOR SIT TO STAND TODAY. PHYSICAL THERAPY TO FOLLOW AND PROGRESS. PATIENT REPORTEDLY LIVES W/ ROOMMATE. REPORTEDLY HAS NO STEPS TO ENTER HER HOME. DCPIA - Discharge Planning Initial Assessment Updated by [id number]: Bettina Kothari on 06/29/19 12:06 pm * Is the patient Alert and Oriented? Yes * How many steps to enter\exit or inside your home? none * PCP [facility] * Pharmacy [facility] * Preadmission Environment Home with Family * ADLs Independent * Equipment Bedside Commode Nebulizer Rolling Walker Shower Chair Walker Wheelchair * List name and contact numbers for known caregivers / representatives who currently or will assist patient after discharge: FERNANDO ALANIS (EX ) [phone] * Verbal permission to speak to the caregivers and representatives has been obtained from the patient. N/A * Community resources currently utilized None * Additional services required to return to the preadmission environment? Yes * Can the patient safely return to the preadmission environment? Yes * Has this patient been hospitalized within the prior 30 days at any hospital? No Coverage Notice Reviewer: [id number] Gary Kothari Notice Issued Date-Time: 06/30/2019 10:10 Notice Type: IM Discharge Notice Notice Delivered To: Patient Relationship to Patient: Punch Press Operator Name: Delivery Method: HAND - Hand Delivered Mayte Days: Prior Verbal Notification: Recipient Understood Notice: Yes Recipient Signature: Yes Med Rec Note Co-signed by Attending: Coverage Notice Comment: Reviewer: [id number] Gary Kothari Notice Issued Date-Time: 06/30/2019 10:10 Notice Type: Patient Choice Letter Notice Delivered To: Patient Relationship to Patient: Punch Press Operator Name: Delivery Method: HAND - Hand Delivered Mayte Days: Prior Verbal Notification: Recipient Understood Notice: Yes Recipient Signature: Yes Med Rec Note Co-signed by Attending: Coverage Notice Comment: Reviewer: AMY Kothari Notice Issued Date-Time: 07/02/2019 11:00 Notice Type: IM Discharge Notice Notice Delivered To: Patient Relationship to Patient: Punch Press Operator Name: Delivery Method: HAND - Hand Delivered Mayte Days: Prior Verbal Notification: Recipient Understood Notice: Yes Recipient Signature: Yes Med Rec Note Co-signed by Attending: Coverage Notice Comment: Reviewer: AMY Kothari Notice Issued Date-Time: 07/02/2019 11:00 Notice Type: Patient Choice Letter Notice Delivered To: Patient Relationship to Patient: Punch Press Operator Name: Delivery Method: HAND - Hand Delivered Mayte Days: Prior Verbal Notification: Recipient Understood Notice: Yes Recipient Signature: Yes Med Rec Note Co-signed by Attending: Coverage Notice Comment: AIDA MENDEZ [address] [place] [address] Reviewer: [email or web address] Kothari Notice Issued Date-Time: 07/10/2019 14:30 Notice Type: IM Discharge Notice Notice Delivered To: Patient Relationship to Patient: Punch Press Operator Name: Delivery Method: HAND - Hand Delivered Mayte Days: Prior Verbal Notification: Recipient Understood Notice: Yes Recipient Signature: Yes Med Rec Note Co-signed by Attending: Coverage Notice Comment: Last DP export: 07/10/19 4:26 Patient Name: GUNJAN BROWN Page [id number] at 1447 All edits/amendments must be made on the electronic document DICTATION DATE: 07/13/191445 HOSPITAL CNA: JORDAN 07/13/19 1446 RPT#: [id number] DC DATE:07/10/19 STATUS: DIS IN [facility] [address] [place] [address] END OF REPORT
== END 2019-07-10 15:45 | DRG 492 ==
LOC: D.ER 13:08 → D.MS 13:59
PROVIDERS: Emergency Medicine; Family Medicine; Orthopaedic Surgery; ADMIT Internal Medicine Nephrology; ATTEND Internal Medicine Nephrology
PROC: 0QHH05Z Insertion of External Fixation Device into Left Tibia, Open Approach (ICD-10-PCS; 2019-06-27)
PROC: 0QSK04Z Reposition Left Fibula with Internal Fixation Device, Open Approach (ICD-10-PCS; principal; 2019-06-27 17:02)
PROC: 0QSH36Z Reposition Left Tibia with Intramedullary Internal Fixation Device, Percutaneous Approach (ICD-10-PCS; 2019-07-08)
PROC: 0QPHX5Z Removal of External Fixation Device from Left Tibia, External Approach (ICD-10-PCS; 2019-07-08)
DX: S82.392B Other fracture of lower end of left tibia, initial encounter for open fracture type I or II (principal); S82.832B Other fracture of upper and lower end of left fibula, initial encounter for open fracture type I or II; D62 Acute posthemorrhagic anemia; N17.9 Acute kidney failure, unspecified; I10 Essential (primary) hypertension; J44.9 Chronic obstructive pulmonary disease, unspecified; G62.9 Polyneuropathy, unspecified; R60.9 Edema, unspecified; K21.9 Gastro-esophageal reflux disease without esophagitis; M19.90 Unspecified osteoarthritis, unspecified site; L40.9 Psoriasis, unspecified; F41.8 Other specified anxiety disorders; F31.9 Bipolar disorder, unspecified

== ENCOUNTER 2019-07-30 05:41 | Inpatient (IN) | payer MEDICARE ==
[~2019-07-30] VITALS: Ht 170.2 cm; Wt 77.3 kg
[~2019-07-30 05:41] MED LIST changes: +ALBUTEROL SULF8.5 GM INH; +BACLOFEN10 MG PO; +BUMEX2 MG PO; +COLACE100 MG PO; +FLORAJEN3 CAPS460 MG PO; +HYDROCODON-ACE1 EA10 PO; +K-TAB10 MEQ PO; +PEPCID AC20 MG PO; +VITAMIN D31000 UNI2 PO; +[UNRECOGNIZED DRUG - OTHER] TOPICAL
[2019-07-30 06:52] LABS: BASOPHILS 0.2 % (0-2); EOSINOPHILS 1.5 % (0-7); HEMATOCRIT 35.7 % (36.0-48.0); HEMOGLOBIN 10.9 g/dL (12-16); IMMATURE GRANULOCYTES 0.4 % (0-5); LYMPHOCYTES 13.1 % (15-50); MCH 29.6 pg (26.0-34.0); MCHC 30.5 g/dL (31.0-37.0); MEAN PLATELET VOLUME 9.8 fL (7.4-10.4); MONOCYTES 8.4 % (2-11); NEUTROPHILS 76.4 % (40-80); PLATELET COUNT 280 10x3/uL (130-400); RBC 3.68 10x6/uL (4.00-5.40); WBC 9.8 10x3/uL (4.8-10.8)
[2019-07-30 07:02] LABS: CALC OSMOLALITY 284 mosm/kg (275-300); CARBON DIOXIDE 30.2 mmol/L (21.0-32.0); CHLORIDE - SERUM 102 mmol/L (98-107); CREATININE - SERUM 2.3 mg/dL (0.6-1.3); GLUCOSE 123 mg/dL (74-106); POTASSIUM - SERUM 4.3 mmol/L (3.5-5.1); SODIUM 142 mmol/L (136-145); UREA NITROGEN 15 mg/dL (7-18); eGFR NON AFRICAN AMERICAN 23 mL/min (90-120)
--- NOTE | 2019-07-30 07:09 | NUR ---
PATIENT RECEIVED FROM PM RN, PATIENT REFUSED IV AND IN/OUT CATH FOR URINE. IM INJECTION OF TORADOL GIVEN FOR PAIN.
[2019-07-30 07:17] LABS: ALBUMIN 3.8 g/dL (3.4-5.0); ALKALINE PHOSPHATASE 210 U/L (46-116); ALT (SGPT) 32 U/L (10-68); CREATINE KINASE 102 UL (21-215); PRO BNP 621 pg/mL (0-125); PROTEIN - SERUM 7.4 g/dL (6.4-8.2); THYROID STIMULATING HORMONE 3.04 uIU/mL (0.36-3.74)
[2019-07-30 07:18] LABS: TROPONIN-I < 0.017 ng/mL (0.000-0.060)
--- NOTE | 2019-07-30 08:53 | NUR ---
CHAPARRO BLANCA RN AND CHRISTINA BALDERAS RN AT BEDSIDE FOR IN/OUT CATH FOR URINE.
[2019-07-30] MEDS ORDERED: HYDROCODON-ACE1 EA10 PO (09:02)
[2019-07-30] MEDS ORDERED: CYCLOBENZAPRINE10 MG PO (09:02)
[2019-07-30 09:07] LABS: APPEARANCE CLEAR (CLEAR); COLOR YELLOW (YELLOW)
[2019-07-30 09:08] LABS: BILIRUBIN NEGATIVE (NEGATIVE); GLUCOSE NEGATIVE (NEGATIVE); KETONE NEGATIVE (NEGATIVE); NITRITE NEGATIVE (NEGATIVE); PROTEIN TRACE mg/dL (NEGATIVE); UROBILINOGEN NORMAL (NORMAL)
[2019-07-30 09:24] LABS: UDS - AMPHET NEGATIVE QUAL (NEGATIVE); UDS - BARB NEGATIVE QUAL (NEGATIVE); UDS - BENZO NEGATIVE QUAL (NEGATIVE); UDS - COCAINE NEGATIVE QUAL (NEGATIVE); UDS - OPIATE POSITIVE QUAL (NEGATIVE); UDS - PCP NEGATIVE QUAL (NEGATIVE); UDS - THC NEGATIVE QUAL (NEGATIVE)
--- NOTE | 2019-07-30 11:19 | NUR ---
PATIENT STATES SHE IS ALLERGIC TO A MUSCLE RELAXER, UNSURE IF IT IS FLEXERIL. WILL HOLD AND NOTIFY .
--- NOTE | 2019-07-30 13:15 | NUR ---
NEW PATIENT ADMIT FROM ER VIA STRETCHER AND HOSPITAL PERSONNEL. PATIENT TRANSFERRED TO HOSPITAL BED. PATIENT IS AWAKE, ALERT AND ORIENTED X 4. PATIENT DENIES ANY PAIN . ASSESMENT COMPLETED. PATIENT ORIENTED TO ROOM AND CALL LIGHT . PATIENT DENIES ANY PAIN OR NEEDS. WILL CONTINUE WITH PLAN OF CARE. SR UP X 2 BED IN LOW POSITION AND CALL LIGHT IN REACH.
--- NOTE | 2019-07-30 13:45 | NUR ---
PATIENT LAYING IN BED ON BACK WITH EYES CLOSED AND BREATGHING EVENLY. WILL CONTINUE TO MONITOR.
--- NOTE | 2019-07-30 14:00 | NUR ---
PATIENT STATES FEELS BETTER. NO NAUSEA. WILL CONTINUE TO MONITOR. SR UP X 2 BED IN LOW POSITION AND CALL LIGHT IN REACH.
--- NOTE | 2019-07-30 15:07 | NUR ---
PATIENT AWAKENED. COMPLAINS OF NAUSEA. MEDICATED PER MAR WITH ZOFRAN IV. REPOSITIONED PATIENT FOR COMFORT. WILL CONTINUE TO MONITOR. SR UP X 2 BED IN LOW POSITION AND CALL LIGHT IN REACH.
[2019-07-30 15:17] VITALS: BP 116/66; BMI 26.7
--- NOTE | 2019-07-30 17:01 | NUR ---
PATIENT COMPLAINS OF PAIN . ATTEMPTED TO MEDICATE WITH MORPHINE 4 MG IV . IOV IS [id number]. THIS NURSE MADE ATTEMPTS X 2 FOR NEW IV ACCESS. UNSUCESSFUL. CALLED VERONICA RAMHORTICULTURE TEACHER. SHE TOLD ME SHE WOULD WORK ON FINDING SOMEONE. EXPLAINED TO PATIENT. PATIENT STATES THAT NURIA HAS A HARD TIME GETTING A IV ON HER. N
--- NOTE | 2019-07-30 18:10 | NUR ---
CALLED VERONICA AGAIN TO INQUIRE ABOUT SOMEINE TO OBTAIN IV ACCESS. SHE STATES THAT SHE IS WORKING ON IT. INFORMED HER THAT PATIENT IN PAIN AND IN NEED OR MORPHINE. SHE STATED THAT SHE NEEDS A NEW PATIENT BED ASIGNMENT AND WILL FIND SOMEONE TO ACCESS IV.
--- NOTE | 2019-07-30 18:30 | NUR ---
IV ACCESS TO RT HAND 22 G 3 ATTEMPTS BY MARI ODEN LPN. MORPHINE 4MG GIVEN. PATIENT TOLERATED WELL. WILL CONTINUE TO MONITOR. SR UP X 2 BED IN LOW POSITION AND CALL LIGHT IN REACH.
[2019-07-30 21:21] VITALS: BP 126/76
--- NOTE | 2019-07-30 21:59 | NUR ---
NOTIFIED CONG SESAY ABOUT PT C/O HAVING A HAGER. HE STATES TO PUT ONE IN FOR PERINEAL/SACRAL INJURY. BUT NOW PT STATES SHE DOES NOT WANT THE HAGER ANYMORE, THAT SHE WILL "PEE" IN AN EMESIS BAG INSTEAD. WATER AND SPRITE PROVIDED PER PT'S REQUEST. PT C/O PIV HURTING AT THIS TIME, BUT DOES NOT WANT IT TO BE TAKEN OUT. PT DENIES ANY FURTHER NEEDS AT THIS TIME. WILL CPOC.
--- NOTE | 2019-07-30 23:14 | NUR ---
PT IV INFLITRATED. REMOVED IV IN RFA AND LEFT WRIST. RESITED A NEW PIV ON LFA 22G X1 STCICK. PT TOLERATE WELL. MORPHINE 4MG PRN GIVEN AT THIS TIME. PT DENIES ANY FURTHER NEEDS AT THIS TIME. WILL CPOC.
[2019-07-31 04:10] VITALS: BP 114/57
--- NOTE | 2019-07-31 07:10 | NUR ---
REPORT RECEIVED FROM DIRECTOR CPG AND PATIENT CARE ASSUMED. PATIENT LAYING IN BED ON BACK AWAKE, ALERT AND ORIENTED X 4. PATIENT IS VERY TALKATIVE AND SPEAKING RAPIDLY. PATIENT STATES THAT SHE IS NOT IN PAIN NOW AND REALLY HELPS IF SHE LAYS REALLY STILL . SHE DOES STATE THAT SHE WANTS TO MAKE SURE THAT SHE GETS HER NEXT DOSE OF MORPHINE AT 0830. REPOSITIONED FOR COMFORT. WILL CONTINUE WITH PLAN OF CARE. SR UP X 2 BE4D IN LOW POSITION AND CALL L;IGHT IN REACH.
[2019-07-31 07:30] VITALS: BP 123/85
--- NOTE | 2019-07-31 08:30 | NUR ---
PATIENT COMPLAINS OF BACK PAIN AT A 10. MEDICATED PER WITH MORPHINE IV. PATIENT HAS URINATED IN EMESIS BAG AND BED IS WET. ATTEMPTED TO CLEAN PATIENT AND CHANGE LINENS. PATIENT ADAMANTLY REFUSED. PATIENT STATED THAT SHE DOES NOT WANT TO ROLL OVER OR MOVE AT ALL. SPENT SEVERAL MINUTES ATTEMPTING TO EDUCATE PATIENT ABOUT WET LINENS, ETC. PATIENT STILL ADAMANTLY REFUSED. EXPLAINED TO PATIENT THAT SHE HAD ORDER FOR HAGER FOR IMMOBILITY. PATIENT STATED THAT SHE REFUSED IT LAST NIGHT AND STILL DOES NOT WANT IT. PATIENT ALSO REFUSES BEDPAN. WILL CONTINUE TO MONITOR. SR UP X 2 BED IN LOW POSITION AND CALL LIGHT IN REACH.
[2019-07-31 10:18] LABS: BASOPHILS 0.1 % (0-2); EOSINOPHILS 0 % (0-7); IMMATURE GRANULOCYTES 0.2 % (0-5); LYMPHOCYTES 13.6 % (15-50); MCH 29.6 pg (26.0-34.0); MCHC 30.3 g/dL (31.0-37.0); MCV 97.6 fL (80.0-100.0); MEAN PLATELET VOLUME 9.7 fL (7.4-10.4); MONOCYTES 6.6 % (2-11); NEUTROPHILS 79.5 % (40-80); PLATELET COUNT 270 10x3/uL (130-400); RBC 3.38 10x6/uL (4.00-5.40); RDW 15.2 % (11.5-14.5); WBC 11.3 10x3/uL (4.8-10.8)
[2019-07-31 10:23] LABS: ANION GAP 9.4 mmol/L (8-16); CALCIUM 8.7 mg/dL (8.5-10.1); CARBON DIOXIDE 32.6 mmol/L (21.0-32.0)
[2019-07-31 10:27] LABS: CREATININE - SERUM 1.1 mg/dL (0.6-1.3)
--- NOTE | 2019-07-31 12:08 | NUR ---
MEDICATED PATIENT WITH MORPHINE FOR PAIN. MADE MULTIPLE ATTEMPTS TO CHANGE LINEN AND CLEAN PATIENT. PATIENT STATES THAT SHE DOES NOT WANT TO BE MOVED AND SHE JUST WANTS BATH WIPES AND SHE WANTS TO CLEAN HERSELF. PATIENT DOES USE CALL LIGHT FREQUENTLY - 11 TIMES- SO FAR TODAY FOR MULTIPLE REQUESTS. PATIENT HAS NOT SLEPT SINCE YESTERDAY, CONTINUES TO BE TALKATIVE AND SPEAKING RAPIDLY. WILL CONTINUE TO MONITOR. SR UP X 2 BED IN LOW POSITION AND CALL LIGHT IN REACH.
--- NOTE | 2019-07-31 12:15 | NUR ---
MEDICATED PATIENT PER MAR WITH MORPHINE 4 MG. PATIENT TOLERATED WELL. PATIENT TO CT. PATEINT IS STABLE AND VSS. WILL CONTINUE TO MONITOR. SER UP X 2 BED IN LOW POSITION AND CALL LIGHT IN REACH.
[2019-07-31 12:36] LABS: ERYTHROCYTE SEDIMENTATION RATE 50 mm/hr (0-30)
[2019-07-31] MEDS ORDERED: AMBIEN10 MG PO (18:41)
[2019-07-31 20:28] VITALS: BP 147/69
--- NOTE | 2019-08-01 03:16 | NUR ---
ASSESSED AT THE BEGINNING OF THE SHIFT. SHE WAS COMPLAINING ABOUT NOT BEING ABLE TO SLEEP DURING THE LAST 2 DAYS. AT HER REQUEST SHE WAS ALLOWED TO SLEEP DURING THE MIDNIGHT VITAL SIGNS BUT CHECKED FOR RESPIRATIONS AND NEEDS WITHOUT WAKING HER.
[2019-08-01 04:51] VITALS: BP 110/67
[2019-08-01 06:58] LABS: BASOPHILS 0.2 % (0-2); EOSINOPHILS 0.3 % (0-7); HEMATOCRIT 32.3 % (36.0-48.0); HEMOGLOBIN 9.8 g/dL (12-16); IMMATURE GRANULOCYTES 0.2 % (0-5); LYMPHOCYTES 21.4 % (15-50); MCH 29.6 pg (26.0-34.0); MCHC 30.3 g/dL (31.0-37.0); MCV 97.6 fL (80.0-100.0); MEAN PLATELET VOLUME 9.7 fL (7.4-10.4); MONOCYTES 9.2 % (2-11); NEUTROPHILS 68.7 % (40-80); PLATELET COUNT 259 10x3/uL (130-400); RBC 3.31 10x6/uL (4.00-5.40); RDW 15.3 % (11.5-14.5); WBC 9.9 10x3/uL (4.8-10.8)
[2019-08-01 07:10] LABS: CALCIUM 8.7 mg/dL (8.5-10.1); CARBON DIOXIDE 28.9 mmol/L (21.0-32.0); CHLORIDE - SERUM 107 mmol/L (98-107); GLUCOSE 97 mg/dL (74-106); POTASSIUM - SERUM 3.6 mmol/L (3.5-5.1); SODIUM 144 mmol/L (136-145); eGFR NON AFRICAN AMERICAN 78 mL/min (90-120)
--- NOTE | 2019-08-01 07:10 | NUR ---
REPORT RECEIVED FROM WIRE CHARGER AND PATIENT CARE ASSUMED. PATIENT LAYING IN BED ON BACK. PATIENT AWAKE, ALERT OREINTED X 4. PATIENT IS VERY TALKATIVE, SPEAKING RAPIDLY. PATIENT IS STABLE AND VSS. WILL CONTINUE WITH PLAN OF CARE. SR UP X 2 BED IN LOW POSITION AND CALL LIGHT IN REACH.
[2019-08-01 07:14] LABS: CALC OSMOLALITY 289 mosm/kg (275-300); CREATININE - SERUM 0.8 mg/dL (0.6-1.3); UREA NITROGEN 20 mg/dL (7-18)
[2019-08-01 08:11] VITALS: BP 123/69
--- NOTE | 2019-08-01 09:00 | NUR ---
DR MITA HOWARD. NEW ORDERS RECEVIED.
--- NOTE | 2019-08-01 11:28 | NUR ---
MEDICATED PATIENT FOR PAIN WITH NORCO 10 MG PER NOV. PATIENT HAD BED BATH WITH COMPLETE LINEN CHANGE. WILL CONTINUE TO MONITOR. SR UP X 2 BED IN LOW POSITION AND CALL LIGHT IN REACH.
[2019-08-01 12:47] VITALS: BP 106/67
--- NOTE | 2019-08-01 13:03 | NUR ---
DR FRANKI HOWARD.
--- NOTE | 2019-08-01 14:15 | NUR ---
RECIEVED PHONE CALL FROM DR NICHOLSON. HE STATED TO HAVE EVERYTHING READY FOR CVL PLACEMENT AND HE WOULD BE ON UNIT SHORTLY TO PLACE CVL LINE.
--- NOTE | 2019-08-01 14:56 | NUR ---
PATIENT UP TO BS COMMODE WITH AASISTANCE. PATIENT HAD LG BM. PATIENT BACK TO BED AND REPOSITONED FOR COMFOT. PATIENT THANKS THIS NURSE FOR GOOD CARE. FRIEND AT . WILL CONTINUE TO [facility]. SR UP X 2 BED IN LOW POSITION AND CALL LIGHT IN REACH.
--- NOTE | 2019-08-01 15:03 | NUR ---
DR LARIOS ROUNDBAMBI.NO NEW ORDERS RECEIVED.
[2019-08-01 16:03] VITALS: BP 88/44
[2019-08-01 19:11] VITALS: Ht 170.2 cm; Wt 77.3 kg
[2019-08-01 21:06] VITALS: BP 107/68
--- NOTE | 2019-08-01 21:55 | NUR ---
1919- REPORT RECIEVED FROM LEANNA STARR. PT IS A/O X4. TRIAYLIS HAS BEEN PLACED. GLASS DRILLER SET UP AND INFUSING. SEE ORDERS. PT'S VITALS ARE STABLE AT THIS TIME. RR EVEN AND UNLABORED. FAMILY AT BEDSIDE. BED LOW CALL LIGHT WITHIN REACH. WILL CONTINUE TO MONITOR. 2157- PT RESTING IN BED WITH EYES CLOSED. RR EVEN AND UNLABORED AT THIS TIME. BED LOW CALL LIGHT WITHIN REACH. WILL CONTINUE TO MONITOR.
[2019-08-01 23:04] VITALS: BP 107/68
--- NOTE | 2019-08-01 23:09 | NUR ---
PT RESTING IN BED WITH EYES CLOSED RR EVEN AND UNLABORED. VITALS STABLE. BED LOW CALL LIGHT WITHIN REACH. WILL CONTINUE TO MONITOR.
--- NOTE | 2019-08-02 00:47 | NUR ---
PT RESTING IN BED WITH EYES CLOSED RR EVEN AND UNLABORED. NO S/S OF DISTRESS AT THIS TIME. BED LOW CALL LIGHT WITHIN REACH. WILL CONTINUE TO MONITOR.
--- NOTE | 2019-08-02 02:57 | NUR ---
I have reviewed this patient and I concur with the Shift Assessment completed by the Licensed Practical Nurse today this shift.
--- NOTE | 2019-08-02 03:04 | NUR ---
PT RESTING COMFORTABLY IN BED. RR EVEN AND UNLABORED. NO S/S OF DISTRESS AT THIS TIME. BED LOW CALL LIGHT WITHIN REACH. WILL CONTINUE TO MONITOR.
[2019-08-02 05:38] LABS: BASOPHILS 0.1 % (0-2); EOSINOPHILS 0.1 % (0-7); HEMATOCRIT 36.8 % (36.0-48.0); HEMOGLOBIN 11.3 g/dL (12-16); IMMATURE GRANULOCYTES 0.1 % (0-5); LYMPHOCYTES 15.9 % (15-50); MCH 29.9 pg (26.0-34.0); MCHC 30.7 g/dL (31.0-37.0); MCV 97.4 fL (80.0-100.0); MEAN PLATELET VOLUME 9.7 fL (7.4-10.4); MONOCYTES 3.4 % (2-11); NEUTROPHILS 80.4 % (40-80); PLATELET COUNT 259 10x3/uL (130-400); RBC 3.78 10x6/uL (4.00-5.40)
[2019-08-02 05:45] LABS: CALCIUM 9.2 mg/dL (8.5-10.1); CHLORIDE - SERUM 108 mmol/L (98-107); CREATININE - SERUM 0.8 mg/dL (0.6-1.3); SODIUM 143 mmol/L (136-145); UREA NITROGEN 16 mg/dL (7-18); eGFR NON AFRICAN AMERICAN 78 mL/min (90-120)
[2019-08-02 05:53] LABS: CALC OSMOLALITY 288 mosm/kg (275-300); GLUCOSE 151 mg/dL (74-106)
--- NOTE | 2019-08-02 08:19 | NUR ---
PT RECEIVED IN BED WITH BREAKFAST ON TRAY. SHE IS FEELING BETTER SINCE GUIDE INITIATED. ABLE TO SIT UP AND MOVE MORE. HOPING TO GO HOME SOON BUT NOT WANTING TO GO BACK TO REHAB.
[2019-08-02 08:31] VITALS: BP 117/70
--- NOTE | 2019-08-02 11:12 | OP ---
PATIENT NAME: GUNJAN BROWN MEDICAL RECORD: [id number] :58 LOCATION:D.M3 D.1211 ADMISSION DATE:08/01/19 SURGEON: ANANTH NICHOLSON MD DATE OF OPERATION: 08/01/2019 PREOPERATIVE DIAGNOSES: 1. 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 2. Recent pelvic fracture. 3. No adequate peripheral IV access unobtainable. POSTOPERATIVE DIAGNOSES: 1. 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 2. Recent pelvic fracture. 3. No adequate peripheral IV access unobtainable. PROCEDURE: Insertion of right internal jugular triple-lumen central venous catheter. SURGEON: Ananth Nicholson MD REVENUE CYCLE ANALYST: None. BLOOD LOSS: Minimal. ANESTHESIA: Local. COMPLICATIONS: None. The entire procedure was performed in the presence of a female nurse. I specifically discussed with her the risk of pneumothorax. OPERATIVE COURSE: The patient was seen at her bedside. The entire procedure was performed in the presence of a female nurse. She was positioned supine. I interrogated the right neck with the hand-held ultrasound and I identified a compressible right internal jugular vein. A local anesthetic was used to infiltrate the skin and subcutaneous tissues after sterile prep. I then percutaneously accessed the right internal jugular vein in an antegrade fashion. Guidewire was passed easily. A small skin mireya was accomplished. A vessel dilator was used to dilate the subcutaneous tract. A 16 cm triple lumen central venous catheter was inserted to the hub. It was sutured in place times 1. All lumens flushed easily and aspirated dark, nonpulsatile blood. A stat portable chest x-ray is pending. TRANSINT:[id number] Voice Confirmation ID: [id number] DOCUMENT ID: [id number] ANANTH NICHOLSON MD at 1112 CC: [id number] DICTATION DATE: 08/01/191913 CHEMICAL OPERATIONS AND TRAINING: 08/02/19 0013 ADM IN [facility] [address] [place] [address]
--- NOTE | 2019-08-02 19:25 | NUR ---
PT SITTING UP IN BED. CL IN BED. DENIES NEEDS AT THIS TIME.BED IN LOW SIDE RAILS X2. RESP EVEN AND UNLABORED. A/O X4. LUNGS CLEAR. BOWEL ACTIVE X4. PUREWICK IN PLACE. IV INTACT. DIRECTOR AMBULATORY IN USE. BUTTON IN REACH FOR DIRECTOR AMBULATORY. WILL CONTINUE TO MONITOR.
[2019-08-02 21:44] VITALS: BP 132/70
[2019-08-02 23:52] VITALS: BP 108/58
[2019-08-03 05:13] VITALS: BP 135/59
[2019-08-03 06:46] LABS: CALC OSMOLALITY 288 mosm/kg (275-300); CALCIUM 9.3 mg/dL (8.5-10.1); CARBON DIOXIDE 28.9 mmol/L (21.0-32.0); CHLORIDE - SERUM 105 mmol/L (98-107); CREATININE - SERUM 0.8 mg/dL (0.6-1.3); GLUCOSE 153 mg/dL (74-106); SODIUM 142 mmol/L (136-145); UREA NITROGEN 20 mg/dL (7-18); eGFR NON AFRICAN AMERICAN 78 mL/min (90-120)
[2019-08-03 06:47] LABS: BASOPHILS 0 % (0-2); EOSINOPHILS 0 % (0-7); HEMATOCRIT 33.8 % (36.0-48.0); HEMOGLOBIN 10.3 g/dL (12-16); IMMATURE GRANULOCYTES 0.3 % (0-5); LYMPHOCYTES 14.1 % (15-50); MCH 29.9 pg (26.0-34.0); MCHC 30.5 g/dL (31.0-37.0); MCV 98.3 fL (80.0-100.0); MEAN PLATELET VOLUME 10.2 fL (7.4-10.4); NEUTROPHILS 81.6 % (40-80); PLATELET COUNT 274 10x3/uL (130-400); RBC 3.44 10x6/uL (4.00-5.40); RDW 14.9 % (11.5-14.5)
--- NOTE | 2019-08-03 09:40 | NUR ---
Rehab Note- Acute Inpatient Rehab prescreen order received. The patient has [employer] and will require a PreAuth prior to an acute inpatient rehab stay. She needs an OT Eval for PreAuth process, currently the patient is not participating much with PT. Will continue to follow at this time. Thank you for this referral! Ambreen Valladares RN Clinical Liaison, [facility] Rehab
[2019-08-03 10:11] VITALS: BP 136/27
[2019-08-03 12:54] VITALS: BP 116/50
[2019-08-03 15:54] VITALS: BP 139/45
--- NOTE | 2019-08-03 17:16 | NUR ---
PT IN BED CRYING, UPSET. ELECTRON BEAM WELDING MACHINE OPERATOR DC'D TODAY BUT NO ORAL MEDS ON PROFILE. TALKED WITH SHAMA GAR AND ORDERS RECEIVED. PT UPDATED ON PLAN.
[2019-08-03 21:10] VITALS: BP 166/83
--- NOTE | 2019-08-03 21:30 | NUR ---
A/O WITH NO SIGNS OF ACUTE DISTRESS. RT IJ NOTED WITH DRESSING CDI. REMOVED ALL BELT WORKER EQUIPMENT OUT OF ROOM. CLEANED BED DUE TO BM AND APPLIED NEW PURWICK. DENIES NO OTHER NEEDS AT THIS TIME. CONTINUE PLAN OF CARE.
[2019-08-04 00:09] VITALS: BP 103/57
[2019-08-04 04:00] VITALS: BP 141/51
[2019-08-04 06:02] LABS: BASOPHILS 0 % (0-2); EOSINOPHILS 0 % (0-7); HEMATOCRIT 33.3 % (36.0-48.0); HEMOGLOBIN 10.1 g/dL (12-16); IMMATURE GRANULOCYTES 0.4 % (0-5); LYMPHOCYTES 13.5 % (15-50); MCH 29.5 pg (26.0-34.0); MCHC 30.3 g/dL (31.0-37.0); MCV 97.4 fL (80.0-100.0); MEAN PLATELET VOLUME 9.8 fL (7.4-10.4); MONOCYTES 3.3 % (2-11); NEUTROPHILS 82.8 % (40-80); PLATELET COUNT 247 10x3/uL (130-400); RBC 3.42 10x6/uL (4.00-5.40); RDW 14.7 % (11.5-14.5); WBC 7.3 10x3/uL (4.8-10.8)
[2019-08-04 06:20] LABS: ANION GAP 13.1 mmol/L (8-16); CARBON DIOXIDE 27.7 mmol/L (21.0-32.0); POTASSIUM - SERUM 3.8 mmol/L (3.5-5.1)
--- NOTE | 2019-08-04 06:40 | NUR ---
CALLED VIRTUAL OFFICE ASSISTANT, DALTON TO CHANGE FREQUENCY OF PAIN MED PER PT REQUEST. THE DECISION WAS MADE NOT TO CHANGE CURRENT PAIN MED. WILL NOTIFY PT. CONTINUE PLAN OF CARE.
--- NOTE | 2019-08-04 19:40 | NUR ---
PATIENT ASSISTED TO BEDSIDE COMMODE. PT HAS DIFFICULTY WITH STANDING AND TRANSFERRING. NEEDS ASSISTANCE. PT STATED SHE DIDNT KNOW HOW SHE WAS GOING TO DO IT BY HERSELF AT HOME. TALKED TO PATIENT ABOUT GOING TO REHAB INSTEAD OF HOME. PATIENT STATED SHE IS NOT GOING TO A REHAB AND IS ONLY GOING HOME. PATIENT ASSISTED BACK TO BED AND WAITING ON HER RIDE HOME.
--- NOTE | 2019-08-04 20:32 | MORECARE ---
CASE MANAGEMENT DISCHARGE SUMMARY PATIENT: GUNJAN BROWN UNIT: [id number] ADM DATE: 08/01/19 AGE: 58 : 58 SEX: F ROOM/BED: D.1211 AUTHOR: JOAN LOCKWOOD PHYSICIAN: REFERRING PHYSICIAN: KARAN DAON MD DATE OF SERVICE: 08/04/19 Discharge Plan Patient Name: GUNJAN BROWN [facility] [facility] 1960 Planned Disposition: Home with Home Health Anticipated Discharge Date: Discharge Date: Expected LOS: Initial Reviewer: [email or web address] Initial Review Date: 07/31/2019 Generated: 08/04/19 9:31 pm External Providers External Provider: OTHER-OTHER Next Contact Date: Service Request Date: Service Type: Resolution: Reviewer: Comments: Coverage Notice Reviewer: [id number] - Jennifer Manceraoy Notice Issued Date-Time: 07/30/2019 11:50 Notice Type: Medicare Outpatient Observation Notice Notice Delivered To: Patient Relationship to Patient: Self Telephone Lines Repairer Name: Delivery Method: HAND - Hand Delivered Mayte Days: Prior Verbal Notification: Recipient Understood Notice: Yes Recipient Signature: Yes Med Rec Note Co-signed by Attending: Coverage Notice Comment: Patient Name: GUNJAN BROWN Page [phone] at 2031 All edits/amendments must be made on the electronic document DICTATION DATE: 08/04/192030 MENTAL HYGIENIST: JORDAN 08/04/192030 RPT#: [id number] RI DATE: STATUS: ADM IN [facility] [address] [place] [address] END OF REPORT
--- NOTE | 2019-08-04 20:38 | MORECARE ---
CASE MANAGEMENT DISCHARGE SUMMARY PATIENT: GUNJAN BROWN UNIT: [id number] ADM DATE: 08/01/19 AGE: 58 : 58 SEX: F ROOM/BED: D.1211 AUTHOR: FABIÁN,DOC PHYSICIAN: REFERRING PHYSICIAN: KARAN DOAN MD DATE OF SERVICE: 08/04/19 Discharge Plan Patient Name: GUNJAN BROWN Facility: [facility]:[place] : 1960 Planned Disposition: Home with Home Health Anticipated Discharge Date: Discharge Date: Expected LOS: Initial Reviewer: [email or web address] Initial Review Date: 07/31/2019 Generated: 08/04/19 9:38 pm DCPIA - Discharge Planning Initial Assessment Updated by [email or web address]: Marely Ornelas on 08/04/19 8:35 pm * Is the patient Alert and Oriented? Yes * How many steps to enter\exit or inside your home? * PCP [facility] * Pharmacy [facility] OR [facility] * Preadmission Environment Home with Family * ADLs Partial Dependent * Partial ADLs (Assistance needed) Ambulation * Equipment Elevated Tol[place] Seat * Other Equipment WALKER, W/C, S/C, BSC * List name and contact numbers for known caregivers / representatives who currently or will assist patient after discharge: STEPHANIE JOYCEON [facility] - [phone] FERNANDO ALANIS - [facility] - [phone] * Verbal permission to speak to the caregivers and representatives has been obtained from the patient. Yes * Community resources currently utilized Home Health * Please name any agencies selected above. [facility] * Additional services required to return to the preadmission environment? No * Can the patient safely return to the preadmission environment? Yes * Has this patient been hospitalized within the prior 30 days at any hospital? No Coverage Notice Reviewer: [id number] Gary Rome Notice Issued Date-Time: 07/30/2019 11:50 Notice Type: Medicare Outpatient Observation Notice Notice Delivered To: Patient Relationship to Patient: Self Email Producer Name: Delivery Method: HAND - Hand Delivered Mayte Days: Prior Verbal Notification: Recipient Understood Notice: Yes Recipient Signature: Yes Med Rec Note Co-signed by Attending: Coverage Notice Comment: Last DP export: 08/04/19 7:32 Patient Name: GUNJAN BROWN Page [phone] at 2037 All edits/amendments must be made on the electronic document DICTATION DATE: 08/04/192037 COIN TELLER: JORADN 08/04/192037 RPT#: [id number] DC DATE: STATUS: ADM IN [facility] [address] [place] [address] END OF REPORT
--- NOTE | 2019-08-04 20:51 | MORECARE ---
CASE MANAGEMENT DISCHARGE SUMMARY PATIENT: GUNJAN BROWN UNIT: [id number] ADM DATE: 08/01/19 AGE: 58 : 58 SEX: F ROOM/BED: D.1211 AUTHOR: FABIÁN,DOC PHYSICIAN: REFERRING PHYSICIAN: KARAN DOAN MD DATE OF SERVICE: 08/04/19 Discharge Plan Patient Name: GUNJAN BROWN Facility: [facility]:[place] : 1960 Planned Disposition: Home with Home Health Anticipated Discharge Date: Discharge Date: Expected LOS: Initial Reviewer: [id number] Initial Review Date: 07/31/2019 Generated: 08/04/19 9:50 pm Comments DCP- Discharge Planning Updated by [email or web address]: Marely Ornelas on 08/04/19 7:[address] LATE ENTRY 07/31/19 Patient Name: GUNJAN BROWN Admission Status: ER Accout number: [id number] Admission Date: 08-01-2019 : 1960 Admission Diagnosis: Attending: KARAN DOAN Current LOS: 3 Anticipated DC Date: Planned Disposition: Home with Home Health Primary Insurance: [employer] [facility] CM met with patient to complete initial dc planning assessment. CM educated patient on the CM role and verbal consent given by patient to complete assessment. Patient lives at home with her significant other where she is independent with her care. At discharge patient plans to return home and feels this is a safe discharge. CM discussed availability of home health, rehab services, and medical equipment. Patient stated that she has [facility] and plans to resume care with them upon discharge. AIDA signed. Patient denied known discharge needs at this time. CM will continue to follow and will assist as needed with dc plans/needs. Discharge Planning Comments: Auditor/Quality: Marely Ornelas DCPIA - Discharge Planning Initial Assessment Updated by [email or web address]: Marely Ornelas on 08/04/19 8:35 pm * Is the patient Alert and Oriented? Yes * How many steps to enter\exit or inside your home? * PCP CAMPA * Pharmacy [facility] * Preadmission Environment Home with Family * ADLs Partial Dependent * Partial ADLs (Assistance needed) Ambulation * Equipment Elevated Toliet Seat * Other Equipment WALKER, W/C, S/C, BSC * List name and contact numbers for known caregivers / representatives who currently or will assist patient after discharge: STEPHANIE BILLINGSLEY - [facility] - [phone] FERNANDO ANNABELLE - [facility] - [phone] * Verbal permission to speak to the caregivers and representatives has been obtained from the patient. Yes * Community resources currently utilized Home Health * Please name any agencies selected above. [facility] * Additional services required to return to the preadmission environment? No * Can the patient safely return to the preadmission environment? Yes * Has this patient been hospitalized within the prior 30 days at any hospital? No Coverage Notice Reviewer: [id number] Gary Rome Notice Issued Date-Time: 07/30/2019 11:50 Notice Type: Medicare Outpatient Observation Notice Notice Delivered To: Patient Relationship to Patient: Self Car Lot Attendant Name: Delivery Method: HAND - Hand Delivered Mayte Days: Prior Verbal Notification: Recipient Understood Notice: Yes Recipient Signature: Yes Med Rec Note Co-signed by Attending: Coverage Notice Comment: Reviewer: [id number] Gary Ornelas Notice Issued Date-Time: 07/31/2019 16:00 Notice Type: Patient Choice Letter Notice Delivered To: Patient Relationship to Patient: Car Lot Attendant Name: Delivery Method: HAND - Hand Delivered Mayte Days: Prior Verbal Notification: Recipient Understood Notice: Yes Recipient Signature: Yes Med Rec Note Co-signed by Attending: Coverage Notice Comment: [facility] Reviewer: [id number] - Marely Ornelas Notice Issued Date-Time: 08/04/2019 15:40 Notice Type: Patient Choice Letter Notice Delivered To: Patient Relationship to Patient: Self Car Lot Attendant Name: Delivery Method: HAND - Hand Delivered Mayte Days: Prior Verbal Notification: Recipient Understood Notice: Yes Recipient Signature: Yes Med Rec Note Co-signed by Attending: Coverage Notice Comment: PATIENT TO DECLINE SERVICE - REHAB Last DP export: 08/04/19 7:38 Patient Name: GUNJAN BROWN Page 33401 at 2050 All edits/amendments must be made on the electronic document DICTATION DATE: 08/04/192049 SCIENTIFIC EDITOR: JORDAN 08/04/192049 RPT#: [id number] DC DATE: STATUS: ADM IN [facility] [address] [place] [address] END OF REPORT
--- NOTE | 2019-08-04 20:57 | MORECARE ---
CASE MANAGEMENT DISCHARGE SUMMARY PATIENT: GUNJAN BROWN UNIT: [id number] ADM DATE: 08/01/19 AGE: 58 : 58 SEX: F ROOM/BED: D.1211 AUTHOR: FABIÁN,DOC PHYSICIAN: REFERRING PHYSICIAN: KARAN DOAN MD DATE OF SERVICE: 08/04/19 Discharge Plan Patient Name: GUNJAN BROWN Facility: [facility]:[place] : 1960 Planned Disposition: Home with Home Health Anticipated Discharge Date: Discharge Date: Expected LOS: Initial Reviewer: [email or web address] Initial Review Date: 07/31/2019 Generated: 08/04/19 9:57 pm Comments DCP- Discharge Planning Updated by [email or web address]: Marely Ornelas on 08/04/19 7:[address] CM spoke with patient she doesn't want Rehab. Patient wants to go home and resume [facility], RAYMUNDO signed D/C IMM signed @ 08/04/19 @ 1540. Patient denies any needs. CM called [facility] and spoke with Cristhian explained that patient being discharge today and would like them to resume care. CM will continue to follow and assist as needed with discharge planning / needs DCP- Discharge Planning Updated by [id number]: Marely Ornelas on 08/04/19 7:[address] LATE ENTRY 07/31/19 Patient Name: GUNJAN BROWN Admission Status: ER Accout number: [id number] Admission Date: 08-01-2019 : 1960 Admission Diagnosis: Attending: KARAN DOAN Current LOS: 3 Anticipated DC Date: Planned Disposition: Home with Home Health Primary Insurance: [employer] CHOICE [facility] CM met with patient to complete initial dc planning assessment. CM educated patient on the CM role and verbal consent given by patient to complete assessment. Patient lives at home with her significant other where she is independent with her care. At discharge patient plans to return home and feels this is a safe discharge. CM discussed availability of home health, rehab services, and medical equipment. Patient stated that she has [facility] and plans to resume care with them upon discharge. RAYMUNDO signed. Patient denied known discharge needs at this time. CM will continue to follow and will assist as needed with dc plans/needs. Discharge Planning Comments: International Exchange Coordinator: Marely Ornelas DCPIA - Discharge Planning Initial Assessment Updated by [email or web address]: Marely Ornelas on 08/04/19 8:35 pm * Is the patient Alert and Oriented? Yes * How many steps to enter\exit or inside your home? * PCP CAMPA * Pharmacy [facility] * Preadmission Environment Home with Family * ADLs Partial Dependent * Partial ADLs (Assistance needed) Ambulation * Equipment Elevated Toliet Seat * Other Equipment WALKER, W/C, S/C, BSC * List name and contact numbers for known caregivers / representatives who currently or will assist patient after discharge: STEPHANIE BILLINGSLEY [facility] - [phone] FERNANDO Vega [facility] - [phone] * Verbal permission to speak to the caregivers and representatives has been obtained from the patient. Yes * Community resources currently utilized Home Health * Please name any agencies selected above. [facility] * Additional services required to return to the preadmission environment? No * Can the patient safely return to the preadmission environment? Yes * Has this patient been hospitalized within the prior 30 days at any hospital? No Coverage Notice Reviewer: [id number] Gary Rome Notice Issued Date-Time: 07/30/2019 11:50 Notice Type: Medicare Outpatient Observation Notice Notice Delivered To: Patient Relationship to Patient: Self Plumbing Instructor Name: Delivery Method: HAND - Hand Delivered Mayte Days: Prior Verbal Notification: Recipient Understood Notice: Yes Recipient Signature: Yes Med Rec Note Co-signed by Attending: Coverage Notice Comment: Reviewer: [id number] Gary Ornelas Notice Issued Date-Time: 07/31/2019 16:00 Notice Type: Patient Choice Letter Notice Delivered To: Patient Relationship to Patient: Plumbing Instructor Name: Delivery Method: HAND - Hand Delivered Mayte Days: Prior Verbal Notification: Recipient Understood Notice: Yes Recipient Signature: Yes Med Rec Note Co-signed by Attending: Coverage Notice Comment: raymundo for jameel Reviewer: [id number] Gary Ornelas Notice Issued Date-Time: 08/04/2019 15:40 Notice Type: Patient Choice Letter Notice Delivered To: Patient Relationship to Patient: Self Plumbing Instructor Name: Delivery Method: HAND - Hand Delivered Mayte Days: Prior Verbal Notification: Recipient Understood Notice: Yes Recipient Signature: Yes Med Rec Note Co-signed by Attending: Coverage Notice Comment: PATIENT TO DECLINE SERVICE - REHAB Last DP export: 08/04/19 7:51 Patient Name: GUNJAN BROWN Page [id number] at 2056 All edits/amendments must be made on the electronic document DICTATION DATE: 08/04/192056 NAIL SPECIALIST: JORDAN 08/04/192056 RPT#: [id number] DC DATE: STATUS: ADM IN [facility] [address] [place] [address] END OF REPORT
--- NOTE | 2019-08-04 21:00 | NUR ---
PATIENT'S IJ CENTRAL LINE D/C'D WITH CATHETER TIP INTACT. PRESSURE HELD AND DRESSING APPLIED. PATIENT COMPLAINED OF DISCOMFORT BUT TOLERATED WELL.
--- NOTE | 2019-08-04 21:30 | NUR ---
PATIENTS RIDE HERE TO TAKE HER HOME. PATIENT ASSISTED TO WHEELCHAIR AND WHEELED TO RIDE OUTSIDE ER. WHILE HELPING TRANSFER INTO VEHICLE, PATIENT WAS SCREAMING AT NURSES, STATING SHE IS NOT GOING HOME AND IS STAYING HERE IN THE HOSPITAL. PATIENT REFUSING TO LEAVE. PASTORAL MINISTRIES PROFESSOR NOTIFIED AND INSTRUCTED TO HAVE HER SIGN IN TO GO BACK THROUGH THE ER. PATIENT SITTING IN WHEELCHAIR IN ER WAITING ROOM AND CRYING WHILE WAITING TO GET CALLED BACK.
--- NOTE | 2019-08-05 13:24 | NUR ---
ROBY (PATIENT [phone]) TO CALL PATIENT WAS DISCHARGED FROM [facility] [address] THAT [address] ODAN WAS SUPPOSE TO LEAVE SCRIPT OR CALL IN FOR L[facility]ESTA INSTEAD OF PATIENT BEING ON AMBIEN. THERE IS NO NOTES TO THIS IN THE DISCHARGE SUMMARY. I LEFT A VOICE MAIL TO ROBY TO HAVE THE PATIENT PLEASE CALL HER PRIMARY LISTED (DR CAMPA) TO ADDRESS THIS.
--- NOTE | 2019-08-10 14:10 | MORECARE ---
CASE MANAGEMENT DISCHARGE SUMMARY PATIENT: GUNJAN BROWN UNIT: [id number] ADM DATE: 08/01/19 AGE: 58 : 58 SEX: F ROOM/BED: D.1211 AUTHOR: FABIÁN,DOC PHYSICIAN: REFERRING PHYSICIAN: KARAN DOAN MD DATE OF SERVICE: 08/10/19 Discharge Plan Patient Name: GUNJAN BROWN Facility: [facility]:[place] : 1960 Planned Disposition: Home with Home Health Anticipated Discharge Date: Discharge Date: 08/04/2019 Expected LOS: Initial Reviewer: [email or web address] Initial Review Date: 07/31/2019 Generated: 08/10/19 3:09 pm DCP- Discharge Planning Updated by [id number]: Marely Ornelas on 08/04/19 7:[address] CM spoke with patient she doesn't want Rehab. Patient wants to go home and resume [facility], RAYMUNDO signed D/C IMM signed @ 08/04/19 @ 1540. Patient denies any needs. CM called [facility] and spoke with Cristhian explained that patient being discharge today and would like them to resume care. CM will continue to follow and assist as needed with discharge planning / needs DCP- Discharge Planning Updated by [email or web address]: Marely Ornelas on 08/04/19 7:[address] LATE ENTRY 07/31/19 Patient Name: GUNJAN BROWN Admission Status: ER Accout number: [id number] Admission Date: 08-01-2019 : 1960 Admission Diagnosis: Attending: KARAN DOAN Current LOS: 3 Anticipated DC Date: Planned Disposition: Home with Home Health Primary Insurance: [employer] CHOICE [facility] CM met with patient to complete initial dc planning assessment. CM educated patient on the CM role and verbal consent given by patient to complete assessment. Patient lives at home with her significant other where she is independent with her care. At discharge patient plans to return home and feels this is a safe discharge. CM discussed availability of home health, rehab services, and medical equipment. Patient stated that she has [facility] and plans to resume care with them upon discharge. RAYMUNDO signed. Patient denied known discharge needs at this time. CM will continue to follow and will assist as needed with dc plans/needs. Discharge Planning Comments: Patcher Bowling Ball: Marely Ornelas DCPIA - Discharge Planning Initial Assessment Updated by [email or web address]: Marely Ornelas on 08/04/19 8:35 pm * Is the patient Alert and Oriented? Yes * How many steps to enter\exit or inside your home? * PCP CAMPA * Pharmacy [facility] * Preadmission Environment Home with Family * ADLs Partial Dependent * Partial ADLs (Assistance needed) Ambulation * Equipment Elevated Toliet Seat * Other Equipment WALKER, W/C, S/C, BSC * List name and contact numbers for known caregivers / representatives who currently or will assist patient after discharge: STEPHANIE ANALILIA [facility] - [phone] FERNANDO Vega [facility] - [phone] * Verbal permission to speak to the caregivers and representatives has been obtained from the patient. Yes * Community resources currently utilized Home Health * Please name any agencies selected above. [facility] * Additional services required to return to the preadmission environment? No * Can the patient safely return to the preadmission environment? Yes * Has this patient been hospitalized within the prior 30 days at any hospital? No Coverage Notice Reviewer: [id number] Gary Rome Notice Issued Date-Time: 07/30/2019 11:50 Notice Type: Medicare Outpatient Observation Notice Notice Delivered To: Patient Relationship to Patient: Self Fuel Oil Clerk Name: Delivery Method: HAND - Hand Delivered Mayte Days: Prior Verbal Notification: Recipient Understood Notice: Yes Recipient Signature: Yes Med Rec Note Co-signed by Attending: Coverage Notice Comment: Reviewer: [id number] Gary Ornelas Notice Issued Date-Time: 07/31/2019 16:00 Notice Type: Patient Choice Letter Notice Delivered To: Patient Relationship to Patient: Fuel Oil Clerk Name: Delivery Method: HAND - Hand Delivered Mayte Days: Prior Verbal Notification: Recipient Understood Notice: Yes Recipient Signature: Yes Med Rec Note Co-signed by Attending: Coverage Notice Comment: raymundo for [facility] Reviewer: [id number] Gary Ornelas Notice Issued Date-Time: 08/04/2019 15:40 Notice Type: Patient Choice Letter Notice Delivered To: Patient Relationship to Patient: Self Fuel Oil Clerk Name: Delivery Method: HAND - Hand Delivered Mayte Days: Prior Verbal Notification: Recipient Understood Notice: Yes Recipient Signature: Yes Med Rec Note Co-signed by Attending: Coverage Notice Comment: PATIENT TO DECLINE SERVICE - REHAB Last DP export: 08/04/19 7:57 Patient Name: GUNJAN BROWN Page 42496 at 1410 All edits/amendments must be made on the electronic document DICTATION DATE: 08/10/191408 RESEARCH METHODOLOGIST: JORDAN 08/10/191408 RPT#: [id number] DC DATE:08/04/19 STATUS: DIS IN [address] [place] [address] END OF REPORT
== END 2019-08-04 21:12 | disposition home health service (06) | DRG 552 ==
LOC: D.ER 05:41 → D.M3 10:42 → OBSVTIME 10:42 → D.M3 08-01 15:57
PROVIDERS: Emergency Medicine; Family Medicine; Orthopaedic Surgery; ADMIT Internal Medicine Nephrology; ATTEND Internal Medicine Nephrology
PROC: 05HM33Z Insertion of Infusion Device into Right Internal Jugular Vein, Percutaneous Approach (ICD-10-PCS; principal; 2019-08-01)
PROC: B543ZZA Ultrasonography of Right Jugular Veins, Guidance (ICD-10-PCS; 2019-08-01)
DX: M51.36 Other intervertebral disc degeneration, lumbar region (principal); N17.9 Acute kidney failure, unspecified; M54.5 Low back pain; I10 Essential (primary) hypertension; M47.816 Spondylosis without myelopathy or radiculopathy, lumbar region; M16.11 Unilateral primary osteoarthritis, right hip; D64.9 Anemia, unspecified; W19.XXXA Unspecified fall, initial encounter; J44.9 Chronic obstructive pulmonary disease, unspecified; F32.9 Major depressive disorder, single episode, unspecified; K21.9 Gastro-esophageal reflux disease without esophagitis; F44.4 Conversion disorder with motor symptom or deficit; L40.9 Psoriasis, unspecified

== ENCOUNTER 2019-08-04 22:07 | Emergency (ER) | payer MEDICARE ==
[~2019-08-04] VITALS: Ht 170.2 cm; Wt 86.4 kg
[~2019-08-04 22:07] MED LIST changes: +AMBIEN10 MG PO; +CYCLOBENZAPRINE10 MG PO
[2019-08-04 22:12] VITALS: Ht 170.2 cm; Wt 86.4 kg
[2019-08-04 23:15] VITALS: BP 86/52
== END 2019-08-04 23:05 | disposition left against medical advice (07) ==
LOC: D.ER 22:07
DX: I95.9 Hypotension, unspecified (principal); M19.90 Unspecified osteoarthritis, unspecified site

== ENCOUNTER 2019-08-09 20:52 | Inpatient (IN) | payer MEDICARE ==
[~2019-08-09] VITALS: Ht 170.2 cm; Wt 81.6 kg
[2019-08-09 21:14] LABS: BASOPHILS 0.2 % (0-2); HEMATOCRIT 36.5 % (36.0-48.0); HEMOGLOBIN 11.1 g/dL (12-16); IMMATURE GRANULOCYTES 0.2 % (0-5); MCH 29.6 pg (26.0-34.0); MCHC 30.4 g/dL (31.0-37.0); MCV 97.3 fL (80.0-100.0); MEAN PLATELET VOLUME 9.4 fL (7.4-10.4); MONOCYTES 8.7 % (2-11); NEUTROPHILS 73.9 % (40-80); RBC 3.75 10x6/uL (4.00-5.40); RDW 14.8 % (11.5-14.5); WBC 12.2 10x3/uL (4.8-10.8)
[2019-08-09 21:15] LABS: APPEARANCE CLEAR (CLEAR); COLOR STRAW (YELLOW); PLATELET COUNT 331 10x3/uL (130-400)
[2019-08-09 21:16] LABS: BILIRUBIN NEGATIVE (NEGATIVE); GLUCOSE NEGATIVE (NEGATIVE); KETONE NEGATIVE (NEGATIVE); NITRITE NEGATIVE (NEGATIVE); PROTEIN NEGATIVE (NEGATIVE); UROBILINOGEN NORMAL (NORMAL)
[2019-08-09 21:23] LABS: APTT 32.7 SECONDS (22.8-39.4); INR 0.96 (0.85-1.17); PROTIME 12.3 SECONDS (11.6-15.0)
[2019-08-09 21:24] LABS: CALC OSMOLALITY 296 mosm/kg (275-300); CALCIUM 9.5 mg/dL (8.5-10.1); CARBON DIOXIDE 29.1 mmol/L (21.0-32.0); CHLORIDE - SERUM 110 mmol/L (98-107); CREATININE - SERUM 0.7 mg/dL (0.6-1.3); POTASSIUM - SERUM 3.6 mmol/L (3.5-5.1); SODIUM 148 mmol/L (136-145); UREA NITROGEN 18 mg/dL (7-18); eGFR NON AFRICAN AMERICAN > 90 mL/min (90-120)
[2019-08-09 21:26] LABS: GLUCOSE 121 mg/dL (74-106)
[2019-08-09 21:30] LABS: UDS - AMPHET NEGATIVE QUAL (NEGATIVE); UDS - BARB NEGATIVE QUAL (NEGATIVE); UDS - BENZO NEGATIVE QUAL (NEGATIVE); UDS - COCAINE NEGATIVE QUAL (NEGATIVE); UDS - OPIATE POSITIVE QUAL (NEGATIVE); UDS - PCP NEGATIVE QUAL (NEGATIVE); UDS - THC NEGATIVE QUAL (NEGATIVE)
[2019-08-09 21:40] LABS: ALBUMIN 3.5 g/dL (3.4-5.0); ALKALINE PHOSPHATASE 335 U/L (46-116); ALT (SGPT) 26 U/L (10-68); BILIRUBIN - TOTAL 0.35 mg/dL (0.2-1.3); CKMB 5.3 U/L (0.0-3.6); CREATINE KINASE 151 UL (21-215); MAGNESIUM - SERUM 1.7 mg/dL (1.8-2.4); PROTEIN - SERUM 8.3 g/dL (6.4-8.2); THYROID STIMULATING HORMONE 0.33 uIU/mL (0.36-3.74)
[2019-08-09 21:41] LABS: TROPONIN-I < 0.017 ng/mL (0.000-0.060)
[2019-08-09 21:44] VITALS: BP 103/74
--- NOTE | 2019-08-09 21:45 | NUR ---
RT AT PT BEDSIDE.
--- NOTE | 2019-08-09 22:00 | NUR ---
PT LEFT ED VIA STRETCHER FOR CT.
--- NOTE | 2019-08-09 22:15 | NUR ---
PT RETURNED TO ED VIA STRETCHER FROM CT.
--- NOTE | 2019-08-09 22:19 | NUR ---
PT BELONGINGS PLACED IN BAG. SILVER HOOP EARRINGS AND MEDICINES PLACED IN BAG.
--- NOTE | 2019-08-09 22:36 | NUR ---
RN ADMINISTERED NARCAN PER EDP ORDER. NO CHANGE IN MENTAL STATUS. EDP NEEDELIA NOTIFIED.
--- NOTE | 2019-08-09 22:40 | NUR ---
1000ML CLEAR, YELLOW URINE EMPTIED FROM HAGER.
--- NOTE | 2019-08-09 22:45 | NUR ---
PT WAKES TO VERBAL STIMULI. PT ABLE TO ANSWER YES/NO QUESTIONS. PT ORIENTED TO PERSON AND PLACE.PT UPDATED ON PLAN OF CARE AT THIS TIME.
[2019-08-09 23:00] VITALS: BP 109/57
--- NOTE | 2019-08-09 23:25 | NUR ---
RECIEVED PT FROM ED VIA BED WITH HOSPITAL STAFF AT BEDSIDE. VITAL SIGNS STABLE. NO VISUAL CUES OF DISTRESS NOTED. DENIES ANY OTHER NEEDS AT THIS TIME. WILL CONTINUE TO MONITOR.
[2019-08-10] VITALS (22 sets, daily range): BP systolic 93–130; BP diastolic 51–89; Ht 170.2 cm; Wt 81.6 kg
--- NOTE | 2019-08-10 01:00 | NUR ---
PT MEDICATIONS COUNTED, WITNESSED, AND PLACED IN ED PYXIS. MED REC LOG PLACED IN PT CHART. SILVER EARRINGS, PT CLOTHES, AND CHAPSTICK IN PT ROOM.
--- NOTE | 2019-08-10 01:00 | NUR ---
VS STABLE. WILL CONTINUE TO MONITOR.
--- NOTE | 2019-08-10 05:00 | NUR ---
VS STABLE. WILL CONTINUE TO MONITOR.
[2019-08-10 06:43] LABS: UDS - AMPHET NEGATIVE QUAL (NEGATIVE); UDS - BARB NEGATIVE QUAL (NEGATIVE); UDS - BENZO NEGATIVE QUAL (NEGATIVE); UDS - COCAINE NEGATIVE QUAL (NEGATIVE); UDS - OPIATE POSITIVE QUAL (NEGATIVE); UDS - PCP NEGATIVE QUAL (NEGATIVE); UDS - THC NEGATIVE QUAL (NEGATIVE)
--- NOTE | 2019-08-10 07:20 | NUR ---
REPORT RECIEVED, SHIFT ASSESSMENT COMPLETE, PT IS ALERT AND ORIENTED, ON RA WITH 97% O2 SAT. ALL PPP, VSS, CALL LIGHT IN REACH
[2019-08-10 08:00] LABS: APPEARANCE CLEAR (CLEAR); BACTERIA FEW /hpf (NEGATIVE); BILIRUBIN NEGATIVE (NEGATIVE); COLOR YELLOW (YELLOW); EPITHELIAL CELLS OCC /hpf (0-5); GLUCOSE NEGATIVE (NEGATIVE); HYALINE CAST OCC /lpf (NONE SEEN); KETONE NEGATIVE (NEGATIVE); MUCUS <1+ /lpf (NONE SEEN); NITRITE NEGATIVE (NEGATIVE); PROTEIN NEGATIVE (NEGATIVE); RED CELLS - URINE 0-5 /hpf (0-5); SPECIFIC GRAVITY 1.015 (1.005-1.020); UROBILINOGEN NORMAL (NORMAL); WHITE CELLS - URINE OCC /hpf (NEGATIVE)
--- NOTE | 2019-08-10 08:05 | NUR ---
VS STABLE. WILL CONTINUE TO MONITOR.
--- NOTE | 2019-08-10 09:02 | NUR ---
UPDATE CALLED TO DR. DOAN, NEW ORDERS RECIEVED,
--- NOTE | 2019-08-10 12:44 | NUR ---
DR. LARIOS NOTIFIED OF CONSULT
--- NOTE | 2019-08-10 13:22 | NUR ---
DR. FAN NOTIFIED OF CONSULT, FOLLOW UP WITH HIM ONE WEEK AFTER HOSPITAL STAY, NO NEW ORDERS
--- NOTE | 2019-08-10 15:30 | NUR ---
DR. MALONE AT BEDSIDE, UPDATE GIVEN,
--- NOTE | 2019-08-10 18:30 | MORECARE ---
CASE MANAGEMENT DISCHARGE SUMMARY PATIENT: GUNJAN BROWN UNIT: [id number] ADM DATE: 08/09/19 AGE: 58 : 58 SEX: F ROOM/BED: D.2308 AUTHOR: JOAN LOCKWOOD PHYSICIAN: REFERRING PHYSICIAN: KARAN DOAN MD DATE OF SERVICE: 08/10/19 Discharge Plan Patient Name: GUNJAN BROWN [facility] [facility] 1960 Planned Disposition: Home Anticipated Discharge Date: Discharge Date: Expected LOS: Initial Reviewer: [email or web address] Initial Review Date: 08/10/2019 Generated: 08/10/19 7:30 pm Patient Name: GUNJAN BROWN Page 20074 at 1830 All edits/amendments must be made on the electronic document DICTATION DATE: 08/10/191829 PUMP SERVICER SUPERVISOR: JORDAN 08/10/191829 RPT#: [id number] [place] DATE: STATUS: ADM IN [facility] [address] [place] [address] END OF REPORT
--- NOTE | 2019-08-10 18:38 | MORECARE ---
CASE MANAGEMENT DISCHARGE SUMMARY PATIENT: GUNJAN BROWN UNIT: [id number] ADM DATE: 08/09/19 AGE: 58 : 58 SEX: F ROOM/BED: D.2308 AUTHOR: JOAN LOCKWOOD PHYSICIAN: REFERRING PHYSICIAN: KARAN DOAN MD DATE OF SERVICE: 08/10/19 Discharge Plan Patient Name: GUNJAN BROWN [facility] [facility] 1960 Planned Disposition: Home Anticipated Discharge Date: Discharge Date: Expected LOS: Initial Reviewer: [email or web address] Initial Review Date: 08/10/2019 Generated: 08/10/19 7:38 pm DCPIA - Discharge Planning Initial Assessment Updated by [email or web address]: Marely Ornelas on 08/10/19 6:35 pm * Is the patient Alert and Oriented? Yes * How many steps to enter\exit or inside your home? * PCP Merlos * Pharmacy [facility] or [facility] * Preadmission Environment Home with Family * ADLs Independent * Other Equipment elevated toilet seat, walker, w/c, sc, BSC * List name and contact numbers for known caregivers / representatives who currently or will assist patient after discharge: STEPHANIE BILLINGSLEY [facility] - [phone] FERNANDO ALANIS [facility] - [phone] * Community resources currently utilized Home Health * Please name any agencies selected above. [facility] * Additional services required to return to the preadmission environment? No * Can the patient safely return to the preadmission environment? Yes * Has this patient been hospitalized within the prior 30 days at any hospital? Yes Last DP export: 08/10/19 5:30 Patient Name: GUNJAN BROWN Page [id number] at 1838 All edits/amendments must be made on the electronic document DICTATION DATE: 08/10/191837 CIGAR ROLLER: JORDAN 08/10/191837 RPT#: [id number] DC DATE: STATUS: ADM IN [facility] [address] [place] [address] END OF REPORT
--- NOTE | 2019-08-10 18:47 | MORECARE ---
CASE MANAGEMENT DISCHARGE SUMMARY PATIENT: GUNJAN BROWN UNIT: [id number] ADM DATE: 08/09/19 AGE: 58 : 58 SEX: F ROOM/BED: D.2308 AUTHOR: FABIÁN,DOC PHYSICIAN: REFERRING PHYSICIAN: KARAN DOAN MD DATE OF SERVICE: 08/10/19 Discharge Plan Patient Name: GUNJAN BROWN Facility: [facility]:[place] : 1960 Planned Disposition: Home Anticipated Discharge Date: Discharge Date: Expected LOS: Initial Reviewer: [email or web address] Initial Review Date: 08/10/2019 Generated: 08/10/19 7:46 pm Comments DCP- Discharge Planning Updated by [email or web address]: Marely Ornelas on 08/10/19 5:[address] Patient Name: GUNJAN BRWON Admission Status: ER Accout number: [id number] Admission Date: 08-09-2019 : 1960 Admission Diagnosis: Attending: KARAN DOAN Current LOS: 1 Anticipated DC Date: Planned Disposition: Home Primary Insurance: [employer] CHOICE PPO [employer] Discharge Planning Comments: CM met with patient to complete initial dc planning assessment. CM educated patient on the CM role and verbal consent given by patient to complete assessment. Patient lives at home with her significant other where she is independent with her care. At discharge patient plans to return home and feels this is a safe discharge. CM discussed availability of home health, rehab services, and medical equipment. Patient stated that she has [facility] and plans to resume care with them upon discharge. AIDA needs to be signed. Patient denied known discharge needs at this time. CM will continue to follow and will assist as needed with dc plans/needs. Flattening Machine Operator: Marely Ornelas DCPIA - Discharge Planning Initial Assessment Updated by [email or web address]: Marely Ornelas on 08/10/19 6:35 pm * Is the patient Alert and Oriented? Yes * How many steps to enter\exit or inside your home? * PCP Merlos * Pharmacy [facility] or [facility] * Preadmission Environment Home with Family * ADLs Independent * Other Equipment elevated toilet seat, walker, w/c, sc, BSC * List name and contact numbers for known caregivers / representatives who currently or will assist patient after discharge: STEPHANIE BILLINGSLEY Gary [facility] - [phone] FERNANDO Vega [facility] - [phone] * Community resources currently utilized Home Health * Please name any agencies selected above. [facility] * Additional services required to return to the preadmission environment? No * Can the patient safely return to the preadmission environment? Yes * Has this patient been hospitalized within the prior 30 days at any hospital? Yes Last DP export: 08/10/19 5:38 Patient Name: GUNJAN BROWN Page [phone] at 1847 All edits/amendments must be made on the electronic document DICTATION DATE: 08/10/191845 SPIRITUAL ADVISOR: JORDAN 08/10/191845 RPT#: [id number] DC DATE: STATUS: ADM IN [facility] [address] [place] [address] END OF REPORT
--- NOTE | 2019-08-10 19:00 | NUR ---
BEDSIDE REPORT AND SHIFT ASSESSMENT COMPLETE. VSS, NO SIGNS OF ACUTE DISTRESS NOTED. WHEN HELPING PT OFF BED WOODWARD SHE YELLED IN PAIN, WOULD NOT LET ME HELP TURN HER OR HOLD HER ON HER SIDE. C/O PAIN IN R HIP, SIDE, BACK, AND BILAT LOWER EXTREMITIES. DENIES ANY OTHER NEEDS AT THIS TIME. CALL LIGHT IN REACH, WILL CONTINUE TO MONITOR.
--- NOTE | 2019-08-10 21:00 | NUR ---
PT RESTING IN BED, FAMILY AT BEDSIDE. PT REQUESTING ME TO CHECK EXTERNAL FEMALE CATHETER TO MAKE SURE IT IS WORKING, SUCTION IS ON AND IT IS HOOKED UP. DENIES ANY NEEDS AT THIS TIME, WILL MONITOR.
--- NOTE | 2019-08-10 23:00 | NUR ---
PT RESTING IN BED, DENIES NEEDS. CALL LIGHT IN REACH. WILL MONITOR.
[2019-08-11 03:00] VITALS: BP 124/74
--- NOTE | 2019-08-11 03:00 | NUR ---
PT STATES SHE HAS CHILLS, BLANKET PROVIDED.
[2019-08-11 04:24] LABS: BASOPHILS 0.3 % (0-2); HEMATOCRIT 33.2 % (36.0-48.0); HEMOGLOBIN 10.3 g/dL (12-16); IMMATURE GRANULOCYTES 0.3 % (0-5); LYMPHOCYTES 29.7 % (15-50); MCH 29.3 pg (26.0-34.0); MEAN PLATELET VOLUME 9.8 fL (7.4-10.4); MONOCYTES 12.6 % (2-11); NEUTROPHILS 55.1 % (40-80); PLATELET COUNT 361 10x3/uL (130-400); RBC 3.51 10x6/uL (4.00-5.40); RDW 14.8 % (11.5-14.5)
[2019-08-11 04:32] LABS: MCV 94.6 fL (80.0-100.0); WBC 6.8 10x3/uL (4.8-10.8)
[2019-08-11 04:47] LABS: CALCIUM 8.4 mg/dL (8.5-10.1); CARBON DIOXIDE 27.6 mmol/L (21.0-32.0); CHLORIDE - SERUM 110 mmol/L (98-107); CREATININE - SERUM 0.7 mg/dL (0.6-1.3); GLUCOSE 84 mg/dL (74-106); MAGNESIUM - SERUM 1.8 mg/dL (1.8-2.4); SODIUM 145 mmol/L (136-145); eGFR NON AFRICAN AMERICAN > 90 mL/min (90-120)
[2019-08-11 04:56] LABS: CALC OSMOLALITY 286 mosm/kg (275-300); UREA NITROGEN 11 mg/dL (7-18)
[2019-08-11 04:57] LABS: POTASSIUM - SERUM 2.8 mmol/L (3.5-5.1)
[2019-08-11 07:00] VITALS: BP 135/85
--- NOTE | 2019-08-11 07:00 | NUR ---
BEDSIDE REPORT RECEIVED. ASSESSMENT COMPLETED PER FLOWSHEET, SEE FLOWSHEET FOR INFORMATION. PT C/O OF BEING UNCOMFORTABLE IN BED, PT REPOSITIONED HERSELF IN BED AND STATED "I FEEL BETTER". PT DENIES ANY NEEDS OR ACUTE DISTRESS AT THIS TIME. VSS. WILL CONT TO EMMANUEL.
--- NOTE | 2019-08-11 07:00 | NUR ---
BEDSDIE REPORT RECEIVED. SHIFT ASSESSMENT COMPLETED PER FLOWSHEET, SEE FLOWSHEET FOR INFORMATION. PT DENIES ANY NEEDS OR DISTRESS AT THIS TIME. VSS. WILL CONT TO MONITOR.
--- NOTE | 2019-08-11 09:00 | NUR ---
PT C/O OF PAIN IN NECK, TYLENOL GIVEN. PT STATED "I ONLY WANT PT OR OT WAKING ME UP, I DON'T WANT LUNCH, I DON'T WANT ANYBODY COMING IN HERE AND WAKING ME UP." WILL CONT TO EMMANUEL.
--- NOTE | 2019-08-11 15:36 | CN ---
PATIENT NAME:GUNJAN BROWN MEDICAL RECORD: [id number] : 58 LOCATION:[id number] ADMIT DATE: 08/09/19 ACCOUNT: [id number] CONSULTING PHYSICIAN: RIMA MALONE MD REFERRING PHYSICIAN: KARAN DOAN MD DATE OF CONSULTATION: 08/10/2019 IDENTIFYING DATA: The patient is 58 years old and she is admitted to the hospital secondary to an overdose. CHIEF COMPLAINT: None. HISTORY OF PRESENT ILLNESS: The patient was found by her on the floor. She was brought to the Emergency Room and was clearly confused. It was suspected that she may have taken too much of her medication. She was admitted to the hospital for observation and evaluation. Upon interview, she is fully awake and alert and interestingly has dilated pupils, but denies any other symptoms of opiate withdrawal. She is somewhat hostile to my questioning, especially questioning her about the use of narcotics and alcohol. She denies that she would want to harm herself or others. She denies overt psychotic symptoms. MENTAL STATUS EXAMINATION: The patient is awake, alert, and oriented to person, place, as well as time and situation. Her mood is angry. Her affect is constricted. Thought processes are circumstantial, particularly when being questioned about something that makes her uncomfortable. She denies that she would seek to harm herself or others. ASSESSMENT: 1. Bipolar disorder by history. 2. Rule out polysubstance abuse. PLAN: At this time, I see no evidence of acute or direct dangerousness. I see no evidence of a thinking disorder consistent with schizophrenia. There may be some evidence of a mood disorder, but she certainly has not clearly depressed in some way that makes her potential danger. More than likely, there is an underlying cluster B personality disorder or certainly traits of cluster B personality types. My biggest concern is one of substance abuse. Apparently, she has been found on the floor before and she is attributing it to a lack of proper physical therapy that we provided when she was here hospitalized in June. She takes a number of medications with serious abuse potential including smooth muscle relaxants, Ambien, Neurontin, Seroquel, and of biggest concern hydrocodone. She insists she needs the hydrocodone and that it is required for her ability to move. Suggesting that is not in her best interest is met with hostility. My opinion is she is in contact with reality, can make reasonable decisions is not acutely dangerous and almost certainly has some sort of a substance use disorder. I do not think it is in her best interest to take narcotics on a daily basis to manage her pain; however, I will leave that to her and the prescribing physician. I agree with the use of the Prozac. I am not sure why she is taking Neurontin unless it is for neuropathy. I do not agree with the use of Seroquel or Ambien and would recommend that be discontinued. I think she does need follow up with mental health, especially since she has been seen by a psychiatrist before and claims she has been diagnosed with bipolar disorder, which may or may not be correct. CONSULT REPORT [id number] GUNJAN BROWN TRANSINT:[id number] Voice Confirmation ID: [id number] DOCUMENT ID: [id number] RIMA MALONE MD at 1536 CC: [id number] DICTATION DATE: 08/10/19 1611 STNA: 08/10/19 1626 ADM IN [facility] [address] [place] [address]
--- NOTE | 2019-08-11 18:01 | NUR ---
OT NOTE: PT ABLE TO PERFORM BED MOB INDEP WITH EXT TIME. SITTING ON EOB WITH GOOD BALANCE; DEMONSTRATED UE/LE STRENGTHENING EXS WHILE ON EOB. PT STATES THAT SHE IS ABOUT TO GO HOME BUT IS FEARFUL OF GETTING IN A TAXI TO RETURN HOME. INSTRUCTION PROVIDED ON HOW TO TRANSFER TO CAR. ROSALINDA BLEVINS, OTR/L
--- NOTE | 2019-08-11 19:03 | MORECARE ---
CASE MANAGEMENT DISCHARGE SUMMARY PATIENT: GUNJAN BROWN UNIT: [id number] ADM DATE: 08/09/19 AGE: 58 : 58 SEX: F ROOM/BED: D.2308 AUTHOR: FABIÁN,DOC PHYSICIAN: REFERRING PHYSICIAN: KARAN DOAN MD DATE OF SERVICE: 08/11/19 Discharge Plan Patient Name: GUNJAN BROWN Facility: [facility]:[place] : 1960 Planned Disposition: Home Anticipated Discharge Date: Discharge Date: 08/11/2019 Expected LOS: Initial Reviewer: [email or web address] Initial Review Date: 08/10/2019 Generated: 08/11/19 8:02 pm DCP- Discharge Planning Updated by [email or web address]: Marely Ornelas on 08/11/19 5:[address] Late Entry 08/11/19 CM received notice from Nursing that [facility] had called requesting records. CM called [facility] and [facility] to find out which HH agency the patient is currently with. [facility] last seen patient 07/29/19 and [facility] last visit was 08/07/19. [facility] stated that patient called and told them she was going to find another HH on 08/05/19. When CM came and spoke with patient to get AIDA signed for HH. Patient couldn't remember which HH she had. CM explained scenario and patient then stated she had [facility] and signed AIDA for [facility]. CM spoke with patient regarding discharge and transportation. Patient had been telling nursing staff that she would have to home via ambulance. CM spoke with patient and explained that it wasn't a medical necessity because she isn't bed bound. Insurance will not cover it. Patient stated that she could step up in her husbands van. CM asked patient if she could get into taxi she stated she thought she could but needed to make sure she could balance herself. CM requested nursing to assist patient up. Nursing seen patient and she was moving around freely in room without assistance. Patient then stated she could get into van and would not need taxi. CM will continue to follow and assist as needed with discharge planning / needs DCP- Discharge Planning Updated by [id number]: Marely Ornelas on 08/10/19 5:[address] Patient Name: GUNJAN BROWN Admission Status: ER Accout number: [id number] Admission Date: 08-09-2019 : 1960 Admission Diagnosis: Attending: KARAN DOAN Current LOS: 1 Anticipated DC Date: Planned Disposition: Home Primary Insurance: [employer] CHOICE PPO MCR ADVANT Discharge Planning Comments: CM met with patient to complete initial dc planning assessment. CM educated patient on the CM role and verbal consent given by patient to complete assessment. Patient lives at home with her significant other where she is independent with her care. At discharge patient plans to return home and feels this is a safe discharge. CM discussed availability of home health, rehab services, and medical equipment. Patient stated that she has [facility] and plans to resume care with them upon discharge. AIDA needs to be signed. Patient denied known discharge needs at this time. CM will continue to follow and will assist as needed with dc plans/needs. Senior Field Engineer: Marely Ornelas DCPIA - Discharge Planning Initial Assessment Updated by [id number]: Marely Ornelas on 08/10/19 6:35 pm * Is the patient Alert and Oriented? Yes * How many steps to enter\exit or inside your home? * PCP Merlos * Pharmacy [facility] or [facility] * Preadmission Environment Home with Family * ADLs Independent * Other Equipment elevated toilet seat, walker, w/c, sc, BSC * List name and contact numbers for known caregivers / representatives who currently or will assist patient after discharge: STEPHANIE Vega [facility] - [phone] FERNANDO Vega [facility] - [phone] * Community resources currently utilized Home Health * Please name any agencies selected above. [facility] * Additional services required to return to the preadmission environment? No * Can the patient safely return to the preadmission environment? Yes * Has this patient been hospitalized within the prior 30 days at any hospital? Yes Coverage Notice Reviewer: [id number] - Marely Ornelas Notice Issued Date-Time: 08/11/2019 15:15 Notice Type: Patient Choice Letter Notice Delivered To: Patient Relationship to Patient: Self Meter Attendant Name: Delivery Method: HAND - Hand Delivered Mayte Days: Prior Verbal Notification: Recipient Understood Notice: Yes Recipient Signature: Yes Med Rec Note Co-signed by Attending: Coverage Notice Comment: Last DP export: 08/10/19 5:47 Patient Name: GUNJAN BROWN Page [id number] at 1903 All edits/amendments must be made on the electronic document DICTATION DATE: 08/11/191901 PARIMUTUEL TICKET CHECKER: JORDAN 08/11/191901 RPT#: [id number] DC DATE:08/11/19 STATUS: DIS IN [facility] [address] [place] [address] END OF REPORT
--- NOTE | 2019-08-11 19:11 | MORECARE ---
CASE MANAGEMENT DISCHARGE SUMMARY PATIENT: GUNJAN BROWN UNIT: [id number] ADM DATE: 08/09/19 AGE: 58 : 58 SEX: F ROOM/BED: D.2308 AUTHOR: FABIÁN,DOC PHYSICIAN: REFERRING PHYSICIAN: KARAN DOAN MD DATE OF SERVICE: 08/11/19 Discharge Plan Patient Name: GUNJAN BROWN Facility: [facility]:[place] : 1960 Planned Disposition: Home Anticipated Discharge Date: Discharge Date: 08/11/2019 Expected LOS: Initial Reviewer: [email or web address] Initial Review Date: 08/10/2019 Generated: 08/11/19 8:11 pm Comments DCP- Discharge Planning Updated by [email or web address]: Marely Ornelas on 08/11/19 6:[address] Late Entry 08/11/19 CM received notice from Nursing that [facility] had called requesting records. CM called [facility] and [facility] to find out which HH agency the patient is currently with. [facility] last seen patient 07/29/19 and [facility] last visit was 08/07/19. [facility] stated that patient called and told them she was going to find another HH on 08/05/19. When CM came and spoke with patient to get AIDA signed for HH. Patient couldn't remember which HH she had. CM explained scenario and patient then stated she had [facility] HH and signed AIDA for [facility]. CM spoke with patient regarding discharge and transportation. Patient had been telling nursing staff that she would have to home via ambulance. CM spoke with patient and explained that it wasn't a medical necessity because she isn't bed bound. Insurance will not cover it. Patient stated that she could step up in her husbands van. CM asked patient if she could get into taxi she stated she thought she could but needed to make sure she could balance herself. CM requested nursing to assist patient up. Nursing seen patient and she was moving around freely in room without assistance. Patient then stated she could get into van and would not need taxi. CM will continue to follow and assist as needed with discharge planning / needs Appended by Marely Ornelas on 08/11/2019 19:04 WIRELESS DEVELOPMENT MANAGER: CM gave patient information on [facility] Behavioral Wellness and walk-in clinics pamphlet given with hours and phone numbers. CM explained that Dr. Farris recommends her to follow up on outpatient basis. DCP- Discharge Planning Updated by [email or web address]: Marely Ornelas on 08/10/19 5:[address] Patient Name: GUNJAN BROWN Admission Status: ER Accout number: [id number] Admission Date: 08-09-2019 : 1960 Admission Diagnosis: Attending: KARAN DOAN Current LOS: 1 Anticipated DC Date: Planned Disposition: Home Primary Insurance: [employer] CHOICE PPO MCR ADVANT Discharge Planning Comments: CM met with patient to complete initial dc planning assessment. CM educated patient on the CM role and verbal consent given by patient to complete assessment. Patient lives at home with her significant other where she is independent with her care. At discharge patient plans to return home and feels this is a safe discharge. CM discussed availability of home health, rehab services, and medical equipment. Patient stated that she has [facility] and plans to resume care with them upon discharge. AIDA needs to be signed. Patient denied known discharge needs at this time. CM will continue to follow and will assist as needed with dc plans/needs. Step Down Specialist: Marely Ornelas DCPIA - Discharge Planning Initial Assessment Updated by [email or web address]: Marely Ornelas on 08/10/19 6:35 pm * Is the patient Alert and Oriented? Yes * How many steps to enter\exit or inside your home? * PCP Merlos * Pharmacy [facility] or [facility] * Preadmission Environment Home with Family * ADLs Independent * Other Equipment elevated toilet seat, walker, w/c, sc, BSC * List name and contact numbers for known caregivers / representatives who currently or will assist patient after discharge: LAMELINDA BILLINGSLEY - [facility] - [phone] FERNANDO GRIMALDO OTHER - [phone] * Community resources currently utilized Home Health * Please name any agencies selected above. [facility] * Additional services required to return to the preadmission environment? No * Can the patient safely return to the preadmission environment? Yes * Has this patient been hospitalized within the prior 30 days at any hospital? Yes Coverage Notice Reviewer: [id number] - Marely Ornelas Notice Issued Date-Time: 08/11/2019 15:15 Notice Type: Patient Choice Letter Notice Delivered To: Patient Relationship to Patient: Self Tenon Machine Operator Name: Delivery Method: HAND - Hand Delivered Mayte Days: Prior Verbal Notification: Recipient Understood Notice: Yes Recipient Signature: Yes Med Rec Note Co-signed by Attending: Coverage Notice Comment: Last DP export: 08/11/19 6:03 Patient Name: GUNJAN BROWN Page [id number] at 1911 All edits/amendments must be made on the electronic document DICTATION DATE: 08/11/191910 TUNNELING MACHINE OPERATOR: JORDAN 08/11/191910 RPT#: [id number] DC DATE:08/11/19 STATUS: DIS IN [facility] [address] [place] [address] END OF REPORT
--- NOTE | 2019-08-11 19:40 | NUR ---
OT NOTE: PT COMPLETED BED MOB TASK WITH [facility]. THANK YOU, CORINA MCNULTY
--- NOTE | 2019-08-11 19:47 | MORECARE ---
CASE MANAGEMENT DISCHARGE SUMMARY PATIENT: GUNJAN BROWN UNIT: [id number] ADM DATE: 08/09/19 AGE: 58 : 58 SEX: F ROOM/BED: D.2308 AUTHOR: FABIÁN,DOC PHYSICIAN: REFERRING PHYSICIAN: KARAN DOAN MD DATE OF SERVICE: 08/11/19 Discharge Plan Patient Name: GUNJAN BROWN Facility: [facility]:[place] : 1960 Planned Disposition: Home Anticipated Discharge Date: Discharge Date: 08/11/2019 Expected LOS: Initial Reviewer: [email or web address] Initial Review Date: 08/10/2019 Generated: 08/11/19 8:47 pm Comments DCP- Discharge Planning Updated by [email or web address]: Marely Ornelas on 08/11/19 6:[address] Late Entry 08/11/19 CM received notice from Nursing that [facility] had called requesting records. CM called [facility] and [facility] to find out which HH agency the patient is currently with. [facility] last seen patient 07/29/19 and [facility] last visit was 08/07/19. [facility] stated that patient called and told them she was going to find another HH on 08/05/19. When CM came and spoke with patient to get AIDA signed for HH. Patient couldn't remember which HH she had. CM explained scenario and patient then stated she had [facility] HH and signed AIDA for [facility]. CM spoke with patient regarding discharge and transportation. Patient had been telling nursing staff that she would have to home via ambulance. CM spoke with patient and explained that it wasn't a medical necessity because she isn't bed bound. Insurance will not cover it. Patient stated that she could step up in her husbands van. CM asked patient if she could get into taxi she stated she thought she could but needed to make sure she could balance herself. CM requested nursing to assist patient up. Nursing seen patient and she was moving around freely in room without assistance. Patient then stated she could get into van and would not need taxi. CM will continue to follow and assist as needed with discharge planning / needs Appended by Marely Ornelas on 08/11/2019 19:04 STUNT WOMAN: CM gave patient information on [facility] Behavioral Wellness and walk-in clinics pamphlet given with hours and phone numbers. CM explained that Dr. Farris recommends her to follow up on outpatient basis. DCP- Discharge Planning Updated by [id number]: Marely Ornelas on 08/10/19 5:[address] Patient Name: GUNJAN BROWN Admission Status: ER Accout number: [id number] Admission Date: 08-09-2019 : 1960 Admission Diagnosis: Attending: KARAN DOAN Current LOS: 1 Anticipated DC Date: Planned Disposition: Home Primary Insurance: [employer] CHOICE PPO MCR ADVANT Discharge Planning Comments: CM met with patient to complete initial dc planning assessment. CM educated patient on the CM role and verbal consent given by patient to complete assessment. Patient lives at home with her significant other where she is independent with her care. At discharge patient plans to return home and feels this is a safe discharge. CM discussed availability of home health, rehab services, and medical equipment. Patient stated that she has [facility] and plans to resume care with them upon discharge. AIDA needs to be signed. Patient denied known discharge needs at this time. CM will continue to follow and will assist as needed with dc plans/needs. Engraver Set Up Operator: Marely Ornelas DCPIA - Discharge Planning Initial Assessment Updated by [id number]: Marely Ornelas on 08/10/19 6:35 pm * Is the patient Alert and Oriented? Yes * How many steps to enter\exit or inside your home? * PCP Merlos * Pharmacy [facility] or [facility] * Preadmission Environment Home with Family * ADLs Independent * Other Equipment elevated toilet seat, walker, w/c, sc, BSC * List name and contact numbers for known caregivers / representatives who currently or will assist patient after discharge: LAMELINDA BILLINGSLEY - [facility] - [phone] FERNANDO GRIMALDO OTHER - [phone] * Community resources currently utilized Home Health * Please name any agencies selected above. [facility] * Additional services required to return to the preadmission environment? No * Can the patient safely return to the preadmission environment? Yes * Has this patient been hospitalized within the prior 30 days at any hospital? Yes Coverage Notice Reviewer: [id number] - Marely Ornelas Notice Issued Date-Time: 08/11/2019 15:15 Notice Type: Patient Choice Letter Notice Delivered To: Patient Relationship to Patient: Self Licensed Professional Counselor Name: Delivery Method: HAND - Hand Delivered Mayte Days: Prior Verbal Notification: Recipient Understood Notice: Yes Recipient Signature: Yes Med Rec Note Co-signed by Attending: Coverage Notice Comment: Last DP export: 08/11/19 6:11 Patient Name: GUNJAN BROWN Page [id number] at 1947 All edits/amendments must be made on the electronic document DICTATION DATE: 08/11/191946 POULTRY PROCESSING SUPERVISOR: JORDAN 08/11/191946 RPT#: [id number] DC DATE:08/11/19 STATUS: DIS IN [facility] [address] [place] [address] END OF REPORT
== END 2019-08-11 16:01 | disposition home health service (06) | DRG 917 ==
LOC: D.ER 20:52 → D.ICU 22:40
PROVIDERS: Emergency Medicine; Family Medicine; ADMIT Internal Medicine Nephrology; ATTEND Internal Medicine Nephrology
DX: T50.911A Poisoning by multiple unspecified drugs, medicaments and biological substances, accidental (unintentional), initial encounter (principal); G92 Toxic encephalopathy; E87.0 Hyperosmolality and hypernatremia; D64.9 Anemia, unspecified; I10 Essential (primary) hypertension; J44.9 Chronic obstructive pulmonary disease, unspecified; K21.9 Gastro-esophageal reflux disease without esophagitis; M19.90 Unspecified osteoarthritis, unspecified site; L40.9 Psoriasis, unspecified; F41.8 Other specified anxiety disorders; F31.9 Bipolar disorder, unspecified; S82.202E Unspecified fracture of shaft of left tibia, subsequent encounter for open fracture type I or II with routine healing; E83.42 Hypomagnesemia

== ENCOUNTER 2019-09-29 21:12 | Inpatient (IN) | payer OTHER ==
[~2019-09-29] VITALS: Ht 170.2 cm; Wt 78.9 kg
[2019-09-29 22:05] LABS: BASOPHILS 0.2 % (0-2); EOSINOPHILS 1.3 % (0-7); HEMATOCRIT 36.7 % (36.0-48.0); HEMOGLOBIN 11.3 g/dL (12-16); IMMATURE GRANULOCYTES 0.3 % (0-5); LYMPHOCYTES 14.5 % (15-50); MCH 27.3 pg (26.0-34.0); MCHC 30.8 g/dL (31.0-37.0); MCV 88.6 fL (80.0-100.0); MEAN PLATELET VOLUME 9.8 fL (7.4-10.4); MONOCYTES 9.9 % (2-11); NEUTROPHILS 73.8 % (40-80); PLATELET COUNT 307 10x3/uL (130-400); RBC 4.14 10x6/uL (4.00-5.40); RDW 15.4 % (11.5-14.5); WBC 11.7 10x3/uL (4.8-10.8)
[2019-09-29 22:11] LABS: CALC OSMOLALITY 290 mosm/kg (275-300); CALCIUM 9.2 mg/dL (8.5-10.1); CHLORIDE - SERUM 106 mmol/L (98-107); CREATININE - SERUM 1.3 mg/dL (0.6-1.3); GLUCOSE 117 mg/dL (74-106); POTASSIUM - SERUM 3.9 mmol/L (3.5-5.1); SODIUM 143 mmol/L (136-145); UREA NITROGEN 26 mg/dL (7-18); eGFR NON AFRICAN AMERICAN 44 mL/min (90-120)
--- NOTE | 2019-09-29 22:20 | NUR ---
2L/NC APPLIED TO PT AT THIS TIME. SPO2 99% WHEEZING NOTED.
[2019-09-29 22:26] LABS: ALBUMIN 3.8 g/dL (3.4-5.0); ALKALINE PHOSPHATASE 226 U/L (46-116); ALT (SGPT) 22 U/L (10-68); BILIRUBIN - TOTAL 0.32 mg/dL (0.2-1.3); MAGNESIUM - SERUM 2.1 mg/dL (1.8-2.4); PROTEIN - SERUM 7.8 g/dL (6.4-8.2); THYROID STIMULATING HORMONE 0.62 uIU/mL (0.36-3.74); TROPONIN-I < 0.017 ng/mL (0.000-0.060)
[2019-09-29 22:40] LABS: APPEARANCE CLEAR (CLEAR); COLOR YELLOW (YELLOW)
[2019-09-29 22:41] LABS: BACTERIA FEW /hpf (NEGATIVE); BILIRUBIN NEGATIVE (NEGATIVE); EPITHELIAL CELLS 0-5 /hpf (0-5); GLUCOSE NEGATIVE (NEGATIVE); KETONE NEGATIVE (NEGATIVE); MUCUS <1+ /lpf (NONE SEEN); NITRITE NEGATIVE (NEGATIVE); PROTEIN NEGATIVE (NEGATIVE); RED CELLS - URINE 0-5 /hpf (0-5); UROBILINOGEN NORMAL (NORMAL); WHITE CELLS - URINE 0-5 /hpf (NEGATIVE)
[2019-09-29 22:44] LABS: UDS - AMPHET NEGATIVE QUAL (NEGATIVE); UDS - BARB NEGATIVE QUAL (NEGATIVE); UDS - BENZO NEGATIVE QUAL (NEGATIVE); UDS - COCAINE NEGATIVE QUAL (NEGATIVE); UDS - OPIATE POSITIVE QUAL (NEGATIVE); UDS - PCP NEGATIVE QUAL (NEGATIVE); UDS - THC POSITIVE QUAL (NEGATIVE)
--- NOTE | 2019-09-29 23:00 | NUR ---
PT ARRIVED TO FLOOR VIA STRECTHER. TRANSFERED PT TO BED. PT ROCKING BACK AND FORTH IN BED, LEGS JERKING, SWINGING ARMS AROUND. CONFUSED TO PLACE, TIME AND SITUATION. SPEECH SLURRED. PT WITH SMALL AMOUNT OF FOAM AT MOUTH. LIP BRUISED AND SLIGHTLY SWOLLEN. RIGHT ARM IN SPLINT WITH LAVELLE WRAP. AUDIBLE WHEEZES HEARD, O2 2L/NC. RED RASH/DRY SKIN TO BILAT LEGS, PERINEAL AREA, AND BUTTOCKS. PT STATES IT IS PSORIASIS. PUPILS DILATED, FALLS ASLEEP WHILE TALKING AND JERKS AWAKE. REPEATING QUESTIONS EVEN AFTER THIS NURSE ANSWERS QUESTIONS AND REORIENTS. PT SIGNIFICANT OTHER LEFT AT THIS TIME STATING HE HAD TO GO HOME. STARTED NS @ 125 INFUSING TO LEFT WRIST. MARSHAL ON. WILL CTM
--- NOTE | 2019-09-29 23:30 | NUR ---
PAGED SHAMA VOSS PRODUCTION CLERKS SUPERVISOR TO UPDATE ON PT STATUS. UNSUCCESFUL AT REORIENTING PT. CONTINUES TO JERK AND SWING ARMS AROUND, TRYING TO CLIMB OUT OF BED
[2019-09-29 23:34] VITALS: BMI 27.3
[2019-09-29] MEDS ORDERED: PROZAC20 MG PO (23:42)
[2019-09-29] MEDS ORDERED: GABAPENTIN100 MG PO (23:42)
[2019-09-30] VITALS (14 sets, daily range): BP systolic 94–171; BP diastolic 40–118
--- NOTE | 2019-09-30 | NUR ---
SHAMA VOSS APN PAGED AGAIN. PT BECOMING COMBATIVE WITH STAFF. SCREAMING OUT INTO HALLWAY. DOES NOT WANT STAFF TO TOUCH HER BUT CONTINUES TO ROCK BACK AND FORTH IN BED, JERKING MOVEMENTS WITH ARMS AND LEGS. ONLY ORIENTED TO SELF. WILL CTM
--- NOTE | 2019-09-30 00:30 | NUR ---
PAGED SHAMA VOSS APN THIRD TIME. PT PULLED IV OUT, BLOOD COVERING PT, GOWN AND LINENS. PT COMBATIVE WITH STAFF WHILE TRYING TO CHANGE GOWN AND LINENS. BUTTING HEAD AT STAFF, KICKING AND YELLING NOT TO TOUCH HER. SCREAMING TO GIVE HER PAIN MEDICINE THAT SHE HURTS BUT COULD NOT ANSWER WHERE PAIN IS. PT HITTING ARM ON SIDE RAILS, EXPLAINED TO PT TO NOT HIT ARM ON BED THAT IT IS BROKEN. PT REPEATES "WHY" AND "WHAT IS" NO MATTER HOW MANY TIMES THIS NURSE RE EXPLAINED SITUATION. EXPLAINED TO PT I HAD TO PUT ANOTHER IV IN, PT REFUSED BUT ASKED FOR PAIN MED, TOLD PT SHE HAD TO HAVE IV FOR PAIN MEDICATION, CONTINUES TO REFUSE FOR THIS NURSE TO START IV ASKING "WHY". SWINGS ARMS AROUND HITTING AT NURSES AND KICKING. ROCKING BACK AND FORTH, WILL NOT STAY STILL TO START IV
--- NOTE | 2019-09-30 01:00 | NUR ---
PAGED SHAMA VOSS X4 TO UPDATE ON PT STATUS. WILL CTM
--- NOTE | 2019-09-30 03:30 | NUR ---
BED ALARM SOUNDING, PT ATTEMPTING TO GET OUT OF BED. STATES SHE HAS TO GO TO BATHROOM. PROVIDED PT WITH BEDSIDE COMMODE. PT GOT UP WITH ASSIST AND VOIDED. MORE ALERT THAN PREVIOUSLY NOTED. ABLE TO STATE SHE IS IN HOSPITAL BUT NOT THE NAME, IS ABLE TO STATE SHE BROKE HER ARM. STATES SHE IS HAVING PAIN RIGHT ARM. EXPLAINED TO PT WE HAVE TO START IV TO GIVE PAIN MEDICATION, PT IS AGREEABLE. PT CONTINUES WITH JERKY MOVEMENTS, THIS NURSE AND STAFF X2 HELD PT ARM, SITED 22G IV TO LEFT HAND X1 ATTEMPT. GAVE MORPHINE ORDERED. WILL CTM
--- NOTE | 2019-09-30 04:00 | NUR ---
PT BEGAN GETTING UP OUT OF BED WITHOUT ASSISTANCE SETTING BED ALARM OFF. WHEN STAFF ENTERED ROOM SHE WOULD YELL TO GET OUT AND LEAVE HER ALONE. EDUCATED PT MULTIPLE TIMES ABOUT NEEDING ASSISTANCE TO GET UP AND WHEN THIS NURSE OR OTHERS WOULD TRY TO ASSIST HER SHE WOULD SCREAM TO NOT TOUCH HER, THAT WE WERE PUSHING HER AND WE CANNOT TELL HER WHAT TO DO. THIS NURSE AND OTHER STAFF GOT PT UP TO BEDSIDE COMMODE 6 TIMES OVER 30 MINUTES AND ON BEDPAN X2. PT CONT TO WANT ON BEDSIDE COMMODE AFTER WE WOULD GET HER BACK INTO BED CLAIMING WE NEVER LET HER GO TO THE BATHROOM. PT DID NOT VOID EXCEPT THE FIRST TIME WE ASSISTED PT UP. PT SCREAMED SHE WANTED BEDPAN TO BE SAT BEDSIDE BED AND SHE WOULD PUT HERSELF ON IT, TOLD PT SHE WOULD NOT BE ABLE TO ONE HANDED AND PT BEGAN YELLING WE WERE MEAN AND REFUSING TO LET HER VOID. MULTIPLE ATTEMPTS TO REORIENT PT AND PROVIDE TEACHING UNSUCESSFUL. PT CONTINUES TO HIT, KICK AND PUSH STAFF WHEN WE COME NEAR HER. PAGED SHAMA VOSS APN, WILL CT
--- NOTE | 2019-09-30 05:00 | NUR ---
SHAMA VOSS APN ORDERED 0.5MG HALDOL IM NOW ONE TIME. GAVE ORDERED. PT UPSET, SCREAMING AND HITTING STAFF. NURSE SITTING ONE ON ONE WITH PT AT THIS TIME TO MAKE SURE PT DOES NOT GET UP AND FALL. ANY TIME STAFF WOULD WALK AWAY FROM ROOM, PT WOULD GET UP AND TRY TO SHUT DOOR TELLING STAFF TO STAY OUT. 30MIN AFTER GIVING HALDOL PT RELAXED AND FELL ASLEEP, WILL CTM
--- NOTE | 2019-09-30 05:45 | NUR ---
PT BED ALARM SOUNDING, PT TRYING TO AMBULATE AROUND ROOM, YELLING AT STAFF TO GET OUT. HITS STAFF IF WE TRY TO TOUCH HER TO KEEP FROM FALLING. CALLED PT EMERGENCY CONTACT FERNANDO ALANIS, PT EX . HE STATES HE WORKED 12 HR SHIFT AND HAS DR WOOD THIS MORNING AND CANNOT COME SIT WITH PT AND BELIEVES IT WOULD MAKE HER WORSE IF HE CAME. CALLED SHAMA VOSS AND UPDATED THAT PT HAS NOT GOT BETTER SINCE HALDOL. HAS PULLED IV OUT AND CONTINUES TO BE COMBATIVE WITH STAFF, WILL NOT STAY IN BED. ORDERS TO TRX TO ICU, GIVE 1MG HALDOL IM ONCE TRANSERED. NOTIFIED EXHIBITS COORDINATOR
--- NOTE | 2019-09-30 07:30 | NUR ---
PT TRANSFERED TO ICU AT THIS TIME
[2019-09-30 11:05] LABS: PROTIME 13.1 SECONDS (11.6-15.0)
--- NOTE | 2019-09-30 15:56 | NUR ---
RINGS HANDED TO KYLEIGH TOVAR RN ICU
--- NOTE | 2019-09-30 16:24 | NUR ---
I REMOVED TWO SMALL SILVER RINGS FROM PATIENT WITH HER CONSENT. I ADVISED THAT THEY WOULD BE PLACED IN A PLASTIC SPECIMIN CUP AND SHE WOULD RECEIVE THEM AFTER SURGERY. NURSE ROSANA DELIVERED THE RINGS TO THE ICU NURSE CARING FOR THE PATIENT. DR. REYNOSO OBSERVED ME REMOVING THE RINGS AND PLACING THEM IN THE SPECIMIN CUP.
--- NOTE | 2019-09-30 19:41 | NUR ---
PT SITTING UP IN BED TALKING TO A FRIEND. SHE IS ALERT AND ORIENTED. VSS. DENIES PAIN. GAVE HER SOME ICE WATER AND SPRITE. SHE DENIES NEEDS. BED LOW AND CALL LIGHT IN REACH.
--- NOTE | 2019-09-30 21:40 | NUR ---
PT SITTING UP IN BED, WATCHING TV AND VISITING WITH FAMILY OR FRIEND. VSS STABLE. DENIES PAIN OR NEEDS. BED LOW AND CALL LIGHT IN REACH.
--- NOTE | 2019-09-30 23:24 | NUR ---
PT RESTING WITH EYES CLOSED. RESPIRATIONS EVEN AND UNLABORED. VSS. ICE PACK TO RIGHT ARM ORDERED. BED IS LOW AND CALL LIGHT WITHIN REACH.
[2019-10-01] VITALS (8 sets, daily range): BP systolic 116–177; BP diastolic 75–98; Ht 170.2 cm; Wt 78.9 kg
--- NOTE | 2019-10-01 00:12 | NUR ---
PT CALLED ME INTO ROOM AND STATES, " I CAN HEAR YOU ALL TALKING ABOUT ME OUT THERE AND I HEARD YOU CALL THE DR AND TELL HIM THAT I HAVE BEEN SCRATCHING ALL OVER AND THAT I MOVED MY BAD ARM. WHERE IS THE CAMERA, SHE ASKS AND WHY ARE YALL RECORDING ME." REASSURED PT THAT THE ABOVE WAS UNTRUE AND THAT THERE WAS NO DOCTOR CALLED AND NO ONE IS RECORDING HER OR TALKING ABOUT HER. SHE VERBALIZED UNDERSTANDING AND STATES, "I KNOW YOU ALL THINK I AM PARANOID." ASSISTED HER TO GET MORE COMFORTABLE IN BED. SHE STATES SHE IS READY TO GO TO SLEEP NOW. TURNED LIGHT OUT AT HER REQUEST. HER BED IS LOW AND CALL LIGHT WITHIN REACH.
--- NOTE | 2019-10-01 01:45 | NUR ---
ASSISTED PT TO RESTROOM. SHE IS C/O PAIN 7/10 TO HER RIGHT HAND. WILL GIVE PERCOCET ORDERED. ASSISTED HER BACK TO BED. SHE HAS AN OLD INJURY/SURGERY TO HER LEFT ANKLE AND HAS DIFFICULTY PIVOTING WITH THAT FOOT. DENIES FURTHER NEEDS. CALL LIGHT IN REACH AND BED LOW.
--- NOTE | 2019-10-01 05:03 | NUR ---
PT AWAKE AND ALERT ASKING WHEN SHE CAN HAVE PAIN MEDS. LET HER KNOW AT 6AM SHE CAN HAVE PERCOCET AGAIN. SHE REPORTS HER PAIN IS CURRENTLY AT A TOLERABLE LEVEL. SHE STATES SHE DOES NOT WANT GUNJAN FROM LAB DRAWING HER BLOOD BECAUSE SHE IS AFRAID THAT SHE WILL CONTAMINATE THE NEEDLE BY URINATING ON IT. CORKY FROM THE LAB IS ON THE FLOOR AND WENT IN TO TALK TO PT. PT TOLD CORKY THE SAME THING BUT DID LET HER DRAW THE BLOOD ORDERED. SHE IS NOW CALM AND WATCHING TV. CALL LIGHT IS WITHIN REACH. BED IN LOWEST POSITION.
[2019-10-01 06:28] LABS: BASOPHILS 0.3 % (0-2); EOSINOPHILS 1.1 % (0-7); HEMATOCRIT 32.2 % (36.0-48.0); IMMATURE GRANULOCYTES 0.2 % (0-5); LYMPHOCYTES 12.7 % (15-50); MCHC 31.1 g/dL (31.0-37.0); MEAN PLATELET VOLUME 10.4 fL (7.4-10.4); MONOCYTES 9.1 % (2-11); NEUTROPHILS 76.6 % (40-80); RDW 15.6 % (11.5-14.5); WBC 12.3 10x3/uL (4.8-10.8)
[2019-10-01 06:31] LABS: PLATELET COUNT 240 10x3/uL (130-400)
[2019-10-01 06:34] LABS: CALCIUM 8.3 mg/dL (8.5-10.1); CARBON DIOXIDE 24.9 mmol/L (21.0-32.0); CHLORIDE - SERUM 106 mmol/L (98-107); GLUCOSE 90 mg/dL (74-106); POTASSIUM - SERUM 3.7 mmol/L (3.5-5.1); SODIUM 142 mmol/L (136-145)
[2019-10-01 06:35] LABS: CALC OSMOLALITY 282 mosm/kg (275-300); CREATININE - SERUM 0.5 mg/dL (0.6-1.3); UREA NITROGEN 12 mg/dL (7-18); eGFR NON AFRICAN AMERICAN > 90 mL/min (90-120)
--- NOTE | 2019-10-01 06:42 | OP ---
PATIENT NAME: GUNJAN BROWN MEDICAL RECORD: [id number] :58 LOCATION:[facility] D.2315 ADMISSION DATE:09/30/19 SURGEON: OLIVE REYNOSO, DATE OF OPERATION: 09/30/2019 PROCEDURE PERFORMED: Right distal radius open reduction internal fixation. PREOPERATIVE DIAGNOSIS: Right distal radius and ulna fracture, displaced and comminuted. POSTOPERATIVE DIAGNOSIS: Right distal radius and ulna fracture, displaced and comminuted. INDICATIONS: Ms. Brown is a 58-year-old female who fell yesterday, came to the ER and noted to have wrist deformity. She was somewhat combative and was sent to the ICU. Her arm was very swollen. I told her we need to fix the radius as it is very displaced and possibly to ulna. She was okay with that and is aware of the risks including infection, bleeding, damage to nerves and vessels. At that time, she was somewhat belligerent and she did not have any family present and the nurse signed a consent with me after informing her of the risks. DESCRIPTION OF THE PROCEDURE: The patient received a block by anesthesia in the preoperative area. After the block, she was taken to the operative suite, laid in supine position, given general anesthetic, 2 grams Ancef and LMA was placed. Right upper extremity was then prepped and draped in sterile fashion. Time out was performed and everybody was in agreement in correct side, site, patient and procedure. Right upper extremity exsanguinated an Esmarch. Tourniquet was inflated and was up for approximately 70 minutes. The incision began over the FCR tendon. Careful dissection was made down to the FCR tendon and the palmaris longus and these were taken radially. The tendon sheath was then opened on the dorsal side and dissection was made down to the radius and it is somewhat of a difficult reduction due to the fragments so many fragments and comminution. Once we got adequate reduction, the plate was put on and locked screws then distally first and then tried to reduce it better, got an adequate position and put a screw in the shaft, cortical screw and then 2 locking screws and then put 2 styloid screws in. The distal ulna fracture was somewhat stable and due to the swelling, I did not feel that it would be good to do the ulnar plate at that time, but I would splint her with a sugar tong. Once the adequate fixation was there, the tourniquet was let down. Any bleeding was controlled with a pickup and Bovie. The skin was then closed with 3-0 Vicryl in inverted interrupted fashion, 4-0 Monocryl in the skin and Prineo glue on the skin. She was then dressed with Adaptic, 4 x 4s, and cast padding and a sugar-tong splint 4 x 30 splint was placed and secured with a 4-inch and 6-inch Ashkan wrap. She was awakened and taken to the recovery in stable condition. BLOOD LOSS: Approximately 50 mL. COMPLICATIONS: None. TRANSINT:[id number] Voice Confirmation ID: [id number] DOCUMENT ID: [id number] OPERATIVE REPORT [id number] GUNJAN BROWN,OLIVE Brown DO at 0642 CC: [id number] DICTATION DATE: 09/30/191801 MACHINE OPERATOR FARMWORKER: 10/01/19 0344 ADM IN [facility] [address] [place] [address]
--- NOTE | 2019-10-01 10:08 | NUR ---
PT STATES SHE WANTS ME TO CALL EX TO COME PICK HER UP FOR THE HOSPITAL. ROBY IS CALLED AND SAID HE WILL BE HERE AT 1200.
--- NOTE | 2019-10-01 11:13 | NUR ---
PT CALLED ME IN THE ROOM AND INFORMED ME THAT SHE DID NOT WANT HER EX TO COME PICJK HER UP KNOW SHE WANTS HIM TO BRING HER PURSE SO SHE CAN GET A CAB. CONTACTED THE EX AND HE SAID HE WILL BE UP HERE SHORTLY TO DISCUSS GETTING HER HOME.
--- NOTE | 2019-10-01 12:30 | NUR ---
CAB CALLED. EX AT THE PTS BEDSIDE. PT WANTS A CAP DUE TO THE FACT SHE HAS A HARD TIME GETTING IN AND OUT. PT LEFT IN A STABLE CONDITION.
--- NOTE | 2019-10-01 13:00 | MORECARE ---
CASE MANAGEMENT DISCHARGE SUMMARY PATIENT: GUNJAN BROWN UNIT: [id number] ADM DATE: 09/30/19 AGE: 58 : 58 SEX: F ROOM/BED: D[facility] AUTHOR: JOAN LOCKWOOD PHYSICIAN: REFERRING PHYSICIAN: HENRRY CANTOR MD DATE OF SERVICE: 10/01/19 Discharge Plan Patient Name: GUNJAN BROWN [facility] [facility] 1960 Planned Disposition: Anticipated Discharge Date: Discharge Date: Expected LOS: Initial Reviewer: [email or web address] Initial Review Date: 10/01/2019 Generated: 10/01/19 1:59 pm Patient Name: GUNJAN BROWN Page [id number] at 1300 All edits/amendments must be made on the electronic document DICTATION DATE: 10/01/19 1259 WARP TENSION TESTER: JORDAN 10/01/19 1259 RPT#: [id number] DC DATE: STATUS: ADM IN [facility] [address] [place] [address] END OF REPORT
--- NOTE | 2019-10-01 13:09 | MORECARE ---
CASE MANAGEMENT DISCHARGE SUMMARY PATIENT: GUNJAN BROWN UNIT: [id number] ADM DATE: 09/30/19 AGE: 58 : 58 SEX: F ROOM/BED: D.2315 AUTHOR: JOAN LOCKWOOD PHYSICIAN: REFERRING PHYSICIAN: HENRRY CANTOR MD DATE OF SERVICE: 10/01/19 Discharge Plan Patient Name: GUNJAN BROWN [facility] [facility] 1960 Planned Disposition: Anticipated Discharge Date: Discharge Date: Expected LOS: Initial Reviewer: [email or web address] Initial Review Date: 10/01/2019 Generated: 10/01/19 2:09 pm DCPIA - Discharge Planning Initial Assessment Updated by [email or web address]: Marely Ornelas on 10/01/19 1:02 pm * Is the patient Alert and Oriented? Yes * PCP CAMPA * Pharmacy [facility] * Preadmission Environment Home with Family * ADLs Partial Dependent * Partial ADLs (Assistance needed) Ambulation * Other Equipment ELEVATED TOILET SEAT, WALKER, W/C, SC, BSC * List name and contact numbers for known caregivers / representatives who currently or will assist patient after discharge: STEPHANIE BILLINGSLEY - [facility] - [phone] FERNANDO ALANIS - [facility] - [phone] * Verbal permission to speak to the caregivers and representatives has been obtained from the patient. Yes * Community resources currently utilized Home Health * Please name any agencies selected above. [facility] * Additional services required to return to the preadmission environment? No * Can the patient safely return to the preadmission environment? Yes * Has this patient been hospitalized within the prior 30 days at any hospital? No Last DP export: 10/01/19 12:00 pm Patient Name: GUNJAN BROWN Page 28375 at 1309 All edits/amendments must be made on the electronic document DICTATION DATE: 10/01/19 1309 MANAGER SOUND: JORDAN 10/01/19 1309 RPT#: [id number] DC DATE: STATUS: ADM IN [facility] [address] [place] [address] END OF REPORT
--- NOTE | 2019-10-01 14:45 | MORECARE ---
CASE MANAGEMENT DISCHARGE SUMMARY PATIENT: GUNJAN BROWN UNIT: [id number] ADM DATE: 09/30/19 AGE: 58 : 58 SEX: F ROOM/BED: D.2315 AUTHOR: FABIÁN,DOC PHYSICIAN: REFERRING PHYSICIAN: HENRRY CANTOR MD DATE OF SERVICE: 10/01/19 Discharge Plan Patient Name: GUNJAN BROWN Facility: [facility]:[place] : 1960 Planned Disposition: Anticipated Discharge Date: Discharge Date: Expected LOS: Initial Reviewer: [email or web address] Initial Review Date: 10/01/2019 Generated: 10/01/19 3:45 pm Comments DCP- Discharge Planning Updated by [email or web address]: Marely Ornelas on 10/01/19 1:[address] Patient Name: GUNJAN BROWN Admission Status: ER Accout number: [id number] Admission Date: 09-30-2019 : 1960 Admission Diagnosis: Attending: HERBERT Current LOS: 1 Anticipated DC Date: Planned Disposition: Primary Insurance: [employer] Discharge Planning Comments: CM met with patient to complete initial dc planning assessment. CM educated patient on the CM role and verbal consent given by patient to complete assessment. Patient lives at home with her ex where she is independent with her care. At discharge patient plans to return home and feels this is a safe discharge. CM discussed availability of home health, rehab services, and medical equipment. Patient states that she will not be able to get in her ex 's van due to having to step up in it. Patient request a taxi to be called for discharge and she will pay for transport. Patient has a bsc, sc, walker, w/c and elevated toilet seat. Patient states she has [facility] Hela and plans to resume. AIDA signed. CM called Seferino with [facility] and notified of discharge today and faxed records. Patient denied known discharge needs at this time. CM will continue to follow and will assist as needed with dc plans/needs. Ammunition Assembly Ii Laborer: Marely Ornelas DCPIA - Discharge Planning Initial Assessment Updated by [email or web address]: Marely Ornelas on 10/01/19 1:02 pm * Is the patient Alert and Oriented? Yes * PCP [facility] * Pharmacy [facility] * Preadmission Environment Home with Family * ADLs Partial Dependent * Partial ADLs (Assistance needed) Ambulation * Other Equipment ELEVATED TOILET SEAT, WALKER, W/C, SC, BSC * List name and contact numbers for known caregivers / representatives who currently or will assist patient after discharge: STEPHANIE Vega [facility] - [phone] FERNANDO Vega [facility] - [phone] * Verbal permission to speak to the caregivers and representatives has been obtained from the patient. Yes * Community resources currently utilized Home Health * Please name any agencies selected above. [facility] * Additional services required to return to the preadmission environment? No * Can the patient safely return to the preadmission environment? Yes * Has this patient been hospitalized within the prior 30 days at any hospital? No Last DP export: 10/01/19 12:09 pm Patient Name: GUNJAN BROWN Page 60947 at 1445 All edits/amendments must be made on the electronic document DICTATION DATE: 10/01/19 1445 GEOSCIENCES ASSOCIATE PROFESSOR: JORDAN 10/01/19 1445 RPT#: [id number] DC DATE: STATUS: ADM IN [facility] [address] [place] [address] END OF REPORT
--- NOTE | 2019-10-01 14:59 | MORECARE ---
CASE MANAGEMENT DISCHARGE SUMMARY PATIENT: GUNJAN BROWN UNIT: [id number] ADM DATE: 09/30/19 AGE: 58 : 58 SEX: F ROOM/BED: D.2315 AUTHOR: FABIÁN,DOC PHYSICIAN: REFERRING PHYSICIAN: HENRRY CANTOR MD DATE OF SERVICE: 10/01/19 Discharge Plan Patient Name: GUNJAN BROWN Facility: [facility]:[place] : 1960 Planned Disposition: Anticipated Discharge Date: Discharge Date: 10/01/2019 Expected LOS: Initial Reviewer: [email or web address] Initial Review Date: 10/01/2019 Generated: 10/01/19 3:58 pm Comments DCP- Discharge Planning Updated by [email or web address]: Marely Ornelas on 10/01/19 1:[address] Patient Name: GUNJAN BROWN Admission Status: ER Accout number: [id number] Admission Date: 09-30-2019 : 1960 Admission Diagnosis: Attending: HERBERT Current LOS: 1 Anticipated DC Date: Planned Disposition: Primary Insurance: [email or web address] Discharge Planning Comments: CM met with patient to complete initial dc planning assessment. CM educated patient on the CM role and verbal consent given by patient to complete assessment. Patient lives at home with her ex where she is independent with her care. At discharge patient plans to return home and feels this is a safe discharge. CM discussed availability of home health, rehab services, and medical equipment. Patient states that she will not be able to get in her ex 's van due to having to step up in it. Patient request a taxi to be called for discharge and she will pay for transport. Patient has a bsc, sc, walker, w/c and elevated toilet seat. Patient states she has [facility] Hela and plans to resume. AIDA signed. CM called Seferino with [facility] and notified of discharge today and faxed records. Patient denied known discharge needs at this time. CM will continue to follow and will assist as needed with dc plans/needs. Assistant Professor Of Music: Marely Ornelas DCPIA - Discharge Planning Initial Assessment Updated by [email or web address]: Marely Ornelas on 10/01/19 1:02 pm * Is the patient Alert and Oriented? Yes * PCP [facility] * Pharmacy [facility] * Preadmission Environment Home with Family * ADLs Partial Dependent * Partial ADLs (Assistance needed) Ambulation * Other Equipment ELEVATED TOILET SEAT, WALKER, W/C, SC, BSC * List name and contact numbers for known caregivers / representatives who currently or will assist patient after discharge: STEPHANIE BILLINGSLEY [facility] - [phone] FERNANDO ALANIS [facility] - [phone] * Verbal permission to speak to the caregivers and representatives has been obtained from the patient. Yes * Community resources currently utilized Home Health * Please name any agencies selected above. [facility] * Additional services required to return to the preadmission environment? No * Can the patient safely return to the preadmission environment? Yes * Has this patient been hospitalized within the prior 30 days at any hospital? No External Providers External Provider: [facility] Next Contact Date: Service Request Date: Service Type: Resolution: Reviewer: Comments: Coverage Notice Reviewer: [email or web address] Gary Ornelas Notice Issued Date-Time: 10/01/2019 12:15 Notice Type: Patient Choice Letter Notice Delivered To: Patient Relationship to Patient: Self Parole Agent Name: Delivery Method: HAND - Hand Delivered Mayte Days: Prior Verbal Notification: Recipient Understood Notice: Yes Recipient Signature: Yes Med Rec Note Co-signed by Attending: Coverage Notice Comment: Last DP export: 10/01/19 1:45 pm Patient Name: GUNJAN BROWN Page 94050 at 1459 All edits/amendments must be made on the electronic document DICTATION DATE: 10/01/19 1458 CLARK DRIVER: JORDAN 10/01/19 1458 RPT#: [id number] DC DATE:10/01/19 STATUS: DIS IN [facility] [address] [place] [address] END OF REPORT
--- NOTE | 2019-10-01 15:09 | MORECARE ---
CASE MANAGEMENT DISCHARGE SUMMARY PATIENT: GUNJAN BROWN UNIT: [id number] ADM DATE: 09/30/19 AGE: 58 : 58 SEX: F ROOM/BED: D.2315 AUTHOR: FABIÁN,DOC PHYSICIAN: REFERRING PHYSICIAN: HENRRY CANTOR MD DATE OF SERVICE: 10/01/19 Discharge Plan Patient Name: GUNJAN BROWN Facility: [facility]:[place] : 1960 Planned Disposition: Anticipated Discharge Date: Discharge Date: 10/01/2019 Expected LOS: Initial Reviewer: [email or web address] Initial Review Date: 10/01/2019 Generated: 10/01/19 4:09 pm Comments DCP- Discharge Planning Updated by [email or web address]: Marely Ornelas on 10/01/19 1:[address] Patient Name: GUNJAN BROWN Admission Status: ER Accout number: [id number] Admission Date: 09-30-2019 : 1960 Admission Diagnosis: Attending: HERBERT Current LOS: 1 Anticipated DC Date: Planned Disposition: Primary Insurance: [employer] Discharge Planning Comments: CM met with patient to complete initial dc planning assessment. CM educated patient on the CM role and verbal consent given by patient to complete assessment. Patient lives at home with her ex where she is independent with her care. At discharge patient plans to return home and feels this is a safe discharge. CM discussed availability of home health, rehab services, and medical equipment. Patient states that she will not be able to get in her ex 's van due to having to step up in it. Patient request a taxi to be called for discharge and she will pay for transport. Patient has a bsc, sc, walker, w/c and elevated toilet seat. Patient states she has [facility] Hel[facility] and plans to resume. AIDA signed. CM called Seferino with [facility] and notified of discharge today and faxed records. Patient denied known discharge needs at this time. CM will continue to follow and will assist as needed with dc plans/needs. Sql Database Administrator: Marely Ornelas DCPIA - Discharge Planning Initial Assessment Updated by [id number]: Marely Ornelas on 10/01/19 1:02 pm * Is the patient Alert and Oriented? Yes * PCP [facility] * Pharmacy [facility] * Preadmission Environment Home with Family * ADLs Partial Dependent * Partial ADLs (Assistance needed) Ambulation * Other Equipment ELEVATED TOILET SEAT, WALKER, W/C, SC, BSC * List name and contact numbers for known caregivers / representatives who currently or will assist patient after discharge: STEPHANIE BILLINGSLEY [facility] - [phone] FERNANDO ALANIS [facility] - [phone] * Verbal permission to speak to the caregivers and representatives has been obtained from the patient. Yes * Community resources currently utilized Home Health * Please name any agencies selected above. [facility] * Additional services required to return to the preadmission environment? No * Can the patient safely return to the preadmission environment? Yes * Has this patient been hospitalized within the prior 30 days at any hospital? No Coverage Notice Reviewer: [email or web address] - Marely Ornelas Notice Issued Date-Time: 10/01/2019 12:15 Notice Type: Patient Choice Letter Notice Delivered To: Patient Relationship to Patient: Self Make Up Man Name: Delivery Method: HAND - Hand Delivered Mayte Days: Prior Verbal Notification: Recipient Understood Notice: Yes Recipient Signature: Yes Med Rec Note Co-signed by Attending: Coverage Notice Comment: Last DP export: 10/01/19 1:59 pm Patient Name: GUNJAN BROWN Page 13573 at 1509 All edits/amendments must be made on the electronic document DICTATION DATE: 10/01/19 1509 METHODS ENGINEER: JORDAN 10/01/19 1509 RPT#: [id number] DC DATE:10/01/19 STATUS: DIS IN [facility] [address] [place] [address] END OF REPORT
== END 2019-10-01 14:51 | disposition home or self-care (01) | DRG 511 ==
LOC: D.ER 21:12 → D.MS 22:16 → OBSVTIME 22:16 → D.ICU 22:16 → D.MS 22:16 → D.ICU 09-30 07:48
PROVIDERS: Family Medicine; Orthopaedic Surgery; ADMIT Family Medicine; ATTEND Family Medicine
PROC: 0PSL04Z Reposition Left Ulna with Internal Fixation Device, Open Approach (ICD-10-PCS; 2019-09-30)
PROC: 0PSJ04Z Reposition Left Radius with Internal Fixation Device, Open Approach (ICD-10-PCS; principal; 2019-09-30 13:00)
DX: S52.501A Unspecified fracture of the lower end of right radius, initial encounter for closed fracture (principal); S52.202A Unspecified fracture of shaft of left ulna, initial encounter for closed fracture; W19.XXXA Unspecified fall, initial encounter; Y92.009 Unspecified place in unspecified non-institutional (private) residence as the place of occurrence of the external cause; I10 Essential (primary) hypertension; J45.909 Unspecified asthma, uncomplicated; G25.81 Restless legs syndrome; K21.9 Gastro-esophageal reflux disease without esophagitis; R40.2133 Coma scale, eyes open, to sound, at hospital admission; R40.2353 Coma scale, best motor response, localizes pain, at hospital admission; R40.2243 Coma scale, best verbal response, confused conversation, at hospital admission; L40.9 Psoriasis, unspecified; R41.82 Altered mental status, unspecified